=== PATIENT | male | born 1960 | race Caucasian/White ===

== ENCOUNTER 2019-08-02 07:25 | Outpatient (CLI) | payer OTHER, SELFPAY ==
--- NOTE | 2019-08-02 | XR_ITS ---
WS: [id number] CHEST 2 VIEWS HISTORY: COPD EXACERBATION COMPARISON: 03/02/2019, 11/25/2018 and 11/17/2017 Lungs: Hyperexpanded lungs with emphysema. Chronic linear scarring in the upper lung parra bilateral ly. No pneumonia. Flattening of the diaphragms. Cardiac size: Normal. Mediastinum/Aorta: Normal mediastinum. Bones: Normal. XR/XR chest 2V* [id number] IMPRESSION: Mild chronic emphysema with no acute cardiopulmonary disease.
== END 2019-08-02 07:26 | disposition home or self-care (01) ==
LOC: RADOUTREAD 09:54
PROVIDERS: Family Provider Internal Medicine; PCP Internal Medicine; Visit Provider Internal Medicine
DX: Z76.89 Persons encountering health services in other specified circumstances (principal)

== ENCOUNTER → 2019-11-03 07:52 | Outpatient (BNVA) | payer OTHER, SELFPAY | PROVIDERS: Family Provider Internal Medicine; PCP Internal Medicine; Visit Provider Specialist | DX: G56.22 Lesion of ulnar nerve, left upper limb (principal); F17.210 Nicotine dependence, cigarettes, uncomplicated | CPT/HCPCS: 95910 ==

== ENCOUNTER → 2019-11-09 13:00 | Outpatient (BNVA) | payer OTHER, SELFPAY | PROVIDERS: Family Provider Internal Medicine; PCP Internal Medicine; Visit Provider Internal Medicine | DX: G62.9 Polyneuropathy, unspecified (principal); E03.9 Hypothyroidism, unspecified | CPT/HCPCS: 80053; 82607; 84443; 85651 ==

== ENCOUNTER 2019-11-19 10:05 | Outpatient (CLI) | payer OTHER, SELFPAY ==
--- NOTE | 2019-11-19 11:00 | MR_ITS ---
WS: [id number] MRI HEAD WITHOUT CONTRAST TECHNIQUE: Sagittal T1, T2 axial, T2 axial FLAIR, axial and coronal T1 images, axial susceptibility w eighted imaging, axial diffusion weighted images, and coronal T2 images were obtained. CLINICAL INFORMATION: per ne COMPARISON: None. FINDINGS: No evidence of restricted diffusion to suggest acute ischemia. Ventricular system and basal cisterns are patent. No suspicious intracranial signal abnormalities. No significant small vessel changes. Mil d parenchymal volume loss. Normal posterior fossa. Normal vascular flow voids at the skull base. No e xtra-axial fluid collections. No evidence of mass or mass effect. Mild mucosal thickening in the paranasal sinuses. Small amount of fluid in the right maxillary sinus. Mastoid air cells are well aerated. No hemosiderin on the susceptibility weighted images. Mild symme tric atrophy involving the temporal lobes and hippocampal formations. Normal optic chiasm and pituita ry infundibulum. MR/MR head wo con* [id number] IMPRESSION: 1. No evidence of restricted diffusion to suggest acute ischemia. 2. No significant small vessel disease. Mild parenchymal volume loss. 3. Mild mucosal thickening in the paranasal sinuses. Mastoid air cells are wel l aerated. 4. Mild symmetric atrophy involving the temporal lobes and hippocampal formati ons. 5. No hemosiderin on the susceptibility weighted images.
--- NOTE | 2019-11-19 11:45 | MR_ITS ---
WS: [id number] MRI CERVICAL SPINE NONCONTRAST TECHNIQUE: Sagittal T1, T2 and STIR imaging. Axial T2, gradient, and fiesta imaging. CLINICAL INFORMATION: periph neuropathy COMPARISON: None. FINDINGS: Straightening of the normal cervical lordosis. Mild spondylitic changes. Disc bulging worse at C3-C4 C4-C5 and C6-C7. C2-C3: Small central disc protrusion. Slight effacement of ventral thecal sac. Spinal canal and ton en are patent. C3-C4: Small central disc protrusion. Mild central canal stenosis. Mild bilateral foraminal narrowing . Mild facet arthropathy. Slight indentation on cervical cord. C4-C5: Mild disc bulging with a small central disc protrusion. Slight contact of the cervical cord. M ild central canal stenosis. Moderate bilateral bony foraminal narrowing. Mild facet arthropathy. C5-C6: Tiny central disc protrusion. Spinal canal is patent. Mild bilateral bony foraminal narrowing. Mild facet arthropathy. C6-C7: Disc osteophyte protrusion with slight indentation on cervical cord. Moderate central canal st enosis. Moderate left and mild right bony foraminal narrowing. C7-T1: Mild left and no significant right foraminal narrowing. Spinal canal is patent. Visualized brain stem structures: Normal. Prevertebral soft tissues: Normal. MR/MR cervical spin wo con* [id number] IMPRESSION: 1. Straightening of the normal cervical lordosis. 2. Small central disc protrusions with mild central canal stenosis C3-C4 and C 4-C5. Moderate central canal stenosis C6-C7 with central disc osteophyte protru last and slight indentation on cervical cord. 3. Small central protrusion C2-3. 4. Mild to moderate bony foraminal narrowing worse at bilateral C4-5, and left C6-C7.
== END 2019-11-19 10:06 | disposition home or self-care (01) ==
LOC: RADSHAW 10:09
PROVIDERS: PCP Internal Medicine; Visit Provider Internal Medicine
DX: G62.9 Polyneuropathy, unspecified (principal); M50.21 Other cervical disc displacement, high cervical region; M48.02 Spinal stenosis, cervical region
CPT/HCPCS: 70551; 72141

== ENCOUNTER → 2019-11-30 15:16 | Outpatient (BNVA) | payer OTHER, SELFPAY | PROVIDERS: PCP Internal Medicine; Visit Provider Internal Medicine | DX: M06.4 Inflammatory polyarthropathy (principal) | CPT/HCPCS: 85651; 86038; 86140; 86200; 86431; 86705; 86706; 86709; 86803; 87340 ==

== ENCOUNTER → 2020-01-19 15:34 | Outpatient (BNVA) | payer OTHER, SELFPAY | PROVIDERS: PCP Internal Medicine; Visit Provider Internal Medicine Rheumatology | DX: M06.041 Rheumatoid arthritis without rheumatoid factor, right hand (principal); Z79.899 Other long term (current) drug therapy; M06.042 Rheumatoid arthritis without rheumatoid factor, left hand; J44.9 Chronic obstructive pulmonary disease, unspecified; R79.82 Elevated C-reactive protein (CRP); F17.210 Nicotine dependence, cigarettes, uncomplicated | CPT/HCPCS: 36415; 82306; 84550; 86431; 86480; 99204 ==

== ENCOUNTER 2020-01-20 09:48 | Outpatient (CLI) | payer OTHER, SELFPAY ==
--- NOTE | 2020-01-20 09:55 | XR_ITS ---
WS: [id number] Left foot, 3 views, 01/20/2020 Clinical Data: inflammatory arthritis Comparison: None. Findings: No fractures or dislocations are seen. No bone destruction or erosion is noted. The joint spaces and soft tissues are normal. XR/XR foot LT min 3V* [id number] Impression: Negative left foot.
--- NOTE | 2020-01-20 09:55 | XR_ITS ---
WS: [id number] Right hand, 3 views, 01/20/2020 Clinical Data: inflammatory arthritis Comparison: None. Findings: No fractures or dislocations are seen. The soft tissues are unremarkable. The joint space s are normal XR/XR hand RT min 3V* [id number] Impression: Negative right hand.
--- NOTE | 2020-01-20 09:55 | XR_ITS ---
WS: [id number] Right foot, 3 views, 01/20/2020 Clinical Data: inflammatory arthritis Comparison: None. Findings: No fractures or dislocations are seen. No bone destruction or erosion is noted. The joint spaces and soft tissues are normal. There is a bunion at the head of the right first metatarsal. XR/XR foot RT min 3V* [id number] Impression: Bunion of the head of the right first metatarsal.
--- NOTE | 2020-01-20 09:55 | XR_ITS ---
WS: [id number] Left hand, 3 views, 01/20/2020 Clinical Data: inflammatory arthritis Comparison: None. Findings: No fractures or dislocations are seen. The soft tissues are unremarkable. The joint spaces are normal XR/XR hand LT min 3V* [id number] Impression: Negative left hand.
== END 2020-01-20 09:49 | disposition home or self-care (01) ==
LOC: RADWPI 09:51
PROVIDERS: Family Provider Internal Medicine; PCP Internal Medicine; Visit Provider Internal Medicine Rheumatology
DX: M19.90 Unspecified osteoarthritis, unspecified site (principal); M21.611 Bunion of right foot
CPT/HCPCS: 73130; 73630

== ENCOUNTER → 2020-02-24 09:48 | Outpatient (BNVA) | payer OTHER, SELFPAY | PROVIDERS: Family Provider Internal Medicine; PCP Internal Medicine; Visit Provider Internal Medicine Rheumatology | DX: Z79.899 Other long term (current) drug therapy (principal) | CPT/HCPCS: 36415; 80076; 82306; 82565; 85025; 85651; 86140 ==

== ENCOUNTER → 2020-03-09 14:16 | Outpatient (BNVA) | payer OTHER, SELFPAY | PROVIDERS: Family Provider Internal Medicine; PCP Internal Medicine; Visit Provider Internal Medicine Rheumatology | DX: M06.041 Rheumatoid arthritis without rheumatoid factor, right hand (principal); M06.042 Rheumatoid arthritis without rheumatoid factor, left hand; Z79.899 Other long term (current) drug therapy; J44.9 Chronic obstructive pulmonary disease, unspecified; M06.4 Inflammatory polyarthropathy; F17.210 Nicotine dependence, cigarettes, uncomplicated; Z79.52 Long term (current) use of systemic steroids | CPT/HCPCS: 99214 ==

== ENCOUNTER 2020-03-10 08:09 | Outpatient (CLI) | payer OTHER, SELFPAY ==
--- NOTE | 2020-03-10 08:18 | XR_ITS ---
WS: [id number] Chest 2 views, 03/10/2020 Clinical Data: shortness of breath Comparison: PA and lateral chest, 08/02/2019. Findings: No nodules, masses or effusions are seen. The heart is normal. The pulmonary vascularity is not increased. No pneumonia or pneumothorax is seen. The diaphragms are flattened. Is diminished vas cular markings in the upper lobes consistent with emphysematous change. XR/XR chest 2V* [id number] Impression: Hyperinflation and emphysema.
== END 2020-03-10 08:10 | disposition home or self-care (01) ==
LOC: RAD 08:13
PROVIDERS: PCP Internal Medicine; Visit Provider Internal Medicine
DX: R06.02 Shortness of breath (principal); J43.9 Emphysema, unspecified
CPT/HCPCS: 71046

== ENCOUNTER → 2020-04-03 09:03 | Outpatient (BNVA) | payer OTHER, SELFPAY | PROVIDERS: Family Provider Internal Medicine; PCP Internal Medicine; Visit Provider Urology | DX: J43.1 Panlobular emphysema (principal) | CPT/HCPCS: 87635 ==

== ENCOUNTER 2020-04-06 12:43 | Outpatient (CLI) | payer OTHER, SELFPAY ==
--- NOTE | 2020-04-06 14:39 | PFTS_ITS ---
Date of Study:04/06/20 Date of Dictation: 04/06/2020 MECHANICS: Forced vital capacity (FVC) is reduced Forced expiratory volume in one second (FEV1) is severely reduced FEV1/FVC is reduced Significant response to bronchodilators noted FLOW VOLUME LOOP: Severe scooping of expiratory limb suggestive of severe obstruction of airways . LUNG VOLUMES: Total lung capacity (TLC) is increased. Residual volume (RV) is significantly increased suggestive of severe air trapping DIFFUSING CAPACITY FOR CARBON MONOXIDE: Moderately reduced . INTERPRETATION: The pulmonary function tests are consistent with severe obstructive ventilatory disease and moderately reduced gas transfer. Correlate clinically MTDD
== END 2020-04-06 12:44 | disposition home or self-care (01) ==
LOC: CT 12:44
PROVIDERS: PCP Internal Medicine; Visit Provider Internal Medicine
DX: J44.9 Chronic obstructive pulmonary disease, unspecified (principal)
CPT/HCPCS: 94060; 94726; 94729; J7611

== ENCOUNTER 2020-04-10 07:52 | Outpatient (CLI) | payer OTHER, SELFPAY ==
--- NOTE | 2020-04-10 07:54 | CT_ITS ---
WS: [id number] CT CHEST WITH INTRAVENOUS CONTRAST HISTORY: Dyspnea on exertion, COPD. TECHNIQUE: Contiguous 5 mm axial imaging performed on the thorax. Coronal and sagittal reformats are submitted. All CT scans at [facility] use at least one of these dose optimization techniq ues: automated exposure control; mA and/or kV adjustment per patient size (includes targeted exams wh ere dose is matched to clinical indication); or iterative reconstruction. CONTRAST: Visipaque 320; 95 mL IV. DLP: 852.97 mGy.cm COMPARISON: 12/08/2018 Lungs and central airway: Hyperexpanded lungs. Focal area of interstitial thickening measures 10 mm i n the LEFT upper lobe and stable since 12/08/2018. There is very mild but new interstitial thickening bilaterally in the periphery of the lungs, greatest at the RIGHT lung base. Pleura: Normal. No pleural effusion. Heart and pericardium: Normal size heart with no pericardial effusion. Mediastinum and ganesh: No mediastinum or hilar adenopathy. Vessels: Mild atherosclerosis aorta. Pulmonary artery size is equal to the aorta. Chest wall and lower neck: No soft tissue masses. Upper abdomen: Small hiatal hernia. No adrenal mass. Visualized liver is negative. There is very mild wall thickening involving the hepatic flexure with very slight narrowing of the lumen. Osseous structures: No osteoblastic or osteolytic bone disease. CT/CT chest w con* [id number] IMPRESSION: 1. Stable scar LEFT upper lobe since 12/08/2018. Recommend additional [address] follow-up to demonstrate long-term stability. 2. New mild interstitial thickening bilaterally but greatest at the RIGHT lung base. Probably representing a mild inflammatory process involving the distal a irways. No pneumonia. 3. No adenopathy. 4. Moderate chronic emphysema. 5. New very mild wall thickening involving the hepatic flexure. Early colonic neoplasm is not excluded. Consider follow-up colonoscopy.
[2020-04-10] MEDS: iodixanol 320 mg/mL 100mL Btl IV (08:27)
== END 2020-04-10 07:53 | disposition home or self-care (01) ==
LOC: CT 07:52
PROVIDERS: PCP Internal Medicine; Visit Provider Internal Medicine
DX: R06.00 Dyspnea, unspecified (principal); J44.9 Chronic obstructive pulmonary disease, unspecified
CPT/HCPCS: 71260

== ENCOUNTER → 2020-04-11 09:54 | Outpatient (BNVA) | payer OTHER, SELFPAY | PROVIDERS: Family Provider Internal Medicine; PCP Internal Medicine; Visit Provider Internal Medicine Rheumatology | DX: Z79.899 Other long term (current) drug therapy (principal) | CPT/HCPCS: 36415; 80076; 82565; 85025; 85651; 86140 ==

== ENCOUNTER 2020-05-02 11:47 | Outpatient (CLI) | payer OTHER, SELFPAY ==
[2020-05-02 12:37] LABS: Alanine Aminotransferase 18 U/L (0-41); Albumin Level 4.3 g/dL (3.5-5.2); Alkaline Phosphatase 84 IU/L (40-130); Anion Gap 15.4 (5-19); Aspartate Amino Transferase 17 U/L (0-40); Blood Urea Nitrogen 8 mg/dL (6-20); Carbon Dioxide 27 mmol/L (22-29); Chloride 99 mmol/L (98-107); Glomerular Filtration Rate 86.4 mL/min (90-130); Glucose 116 mg/dL (65-115); Osmolality Calculated 283 mOsm/kg (285-295); Potassium 4.4 mmol/L (3.5-5.1); Sodium 137 mmol/L (136-145); Total Bilirubin 0.3 mg/dL (0.15-1.2); Total Protein 7.3 g/dL (6.6-8.7)
== END 2020-05-02 11:48 | disposition home or self-care (01) ==
LOC: LAB 11:51
PROVIDERS: PCP Internal Medicine; Visit Provider Internal Medicine Critical Care Medicine
DX: J43.1 Panlobular emphysema (principal)
CPT/HCPCS: 80053

== ENCOUNTER → 2020-05-30 09:44 | Outpatient (BNVA) | payer OTHER, SELFPAY | PROVIDERS: PCP Internal Medicine; Visit Provider Internal Medicine Rheumatology | DX: M06.041 Rheumatoid arthritis without rheumatoid factor, right hand (principal); M06.042 Rheumatoid arthritis without rheumatoid factor, left hand; J43.1 Panlobular emphysema; F17.210 Nicotine dependence, cigarettes, uncomplicated; Z79.899 Other long term (current) drug therapy; Z79.52 Long term (current) use of systemic steroids | CPT/HCPCS: 99214 ==

== ENCOUNTER 2020-07-04 13:08 | Outpatient (CLI) | payer OTHER, SELFPAY ==
[2020-07-04 13:50] LABS: ABG PCO2 46.1 mmHg (35-45); Arterial Blood Gas Hematocrit 46.1 % (42-52); Base Excess ABG 2.9 mmol/L (-2.0-2.0); Blood Gas Allen Test Pos; Blood Gas Operator Identificat glc; Blood Gas Sample Site Radial, right; Blood Gas Sample Type Arterial; HCO3 ABG 28.5 mmol/L (22-26); Oxygen Device ROOM AIR; PO2 ABG 70.4 mmHg (80.0-100.0)
== END 2020-07-04 13:09 | disposition home or self-care (01) ==
PROVIDERS: PCP Internal Medicine; Visit Provider Internal Medicine Critical Care Medicine
DX: J43.1 Panlobular emphysema (principal)
CPT/HCPCS: 36600; 82803

== ENCOUNTER 2020-07-06 10:38 | Outpatient (RCR) | payer OTHER, SELFPAY | END 2020-07-30 23:59 | disposition home or self-care (01) | LOC: PULRHB 10:38 | PROVIDERS: PCP Internal Medicine; Visit Provider Internal Medicine | DX: J44.9 Chronic obstructive pulmonary disease, unspecified (principal) | CPT/HCPCS: 94618; G0424 ==

== ENCOUNTER → 2020-07-12 12:58 | Outpatient (BNVA) | payer OTHER, SELFPAY | PROVIDERS: PCP Internal Medicine; Visit Provider Internal Medicine Rheumatology | DX: Z79.899 Other long term (current) drug therapy (principal) | CPT/HCPCS: 36415; 80076; 82565; 85025; 85651; 86140 ==

== ENCOUNTER 2020-07-31 06:00 | Outpatient (RCR) | payer OTHER, SELFPAY | END 2020-08-27 23:59 | disposition home or self-care (01) | LOC: PULRHB 06:00 | PROVIDERS: PCP Internal Medicine; Visit Provider Internal Medicine | DX: J44.9 Chronic obstructive pulmonary disease, unspecified (principal) | CPT/HCPCS: G0424 ==

== ENCOUNTER 2020-08-28 06:00 | Outpatient (RCR) | payer OTHER, SELFPAY | END 2020-09-27 23:59 | disposition home or self-care (01) | LOC: PULRHB 06:00 | PROVIDERS: PCP Internal Medicine; Visit Provider Internal Medicine | DX: Z95.2 Presence of prosthetic heart valve (principal); Z79.01 Long term (current) use of anticoagulants | CPT/HCPCS: G0424 ==

== ENCOUNTER → 2020-09-18 14:42 | Outpatient (BNVA) | payer OTHER, SELFPAY | PROVIDERS: PCP Internal Medicine; Visit Provider Internal Medicine Rheumatology | DX: M06.041 Rheumatoid arthritis without rheumatoid factor, right hand (principal); M06.042 Rheumatoid arthritis without rheumatoid factor, left hand; Z79.899 Other long term (current) drug therapy; R79.82 Elevated C-reactive protein (CRP); J43.1 Panlobular emphysema; M06.4 Inflammatory polyarthropathy; F17.210 Nicotine dependence, cigarettes, uncomplicated | CPT/HCPCS: 99214 ==

== ENCOUNTER 2020-10-03 18:49 | Emergency (ER) | payer OTHER, SELFPAY ==
--- NOTE | 2020-10-03 18:50 | XR_ITS ---
WS: [id number] PA and lateral chest, 10/03/2020 Clinical Data: cp Comparison: PA and lateral chest, 03/10/2020. Findings: No nodules, masses or effusions are seen. The heart is normal. The pulmonary vascularity is not increased. No pneumonia or pneumothorax is present. The diaphragms are flattened. There are dimi nished vascular markings in the upper lobes. XR/XR chest 2V* [id number] Impression: Hyperinflation and emphysema.
[2020-10-03 20:09] VITALS: BP 121/69; PULSE 85; RESP 18; TEMP 36.8; O2SAT 93; BMI 29.0
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
[2020-10-03] MEDS: HYDROcodone-acetaminophen 5-325 mg Tablet 1 TAB PO (20:43)
--- NOTE | 2020-10-04 09:35 | DCPLANNER ---
Addendum entered by Jody Kelly 10/09/20 14:50: cytogenetics laboratory manager called Dr. Layton's office in [facility], confirming that clinic received referral on patient. cytogenetics laboratory manager was told that clinic did receive the referral. A follow up appointment was scheduled for Saturday, October 31, 2020 at 10:[address] Layton. cytogenetics laboratory manager called patient and informed patient of the scheduled appointment. Addendum entered by Jody Kelly 10/04/20 12:49: Sera from ortho called family preservation caseworker stating that patient wants to be referred to [facility]. cytogenetics laboratory manager spoke with patient, wants to be referred to Dr. Thony Layton at [facility], family preservation caseworker faxed patients information to the clinic of Dr. Layton. Original Note: cytogenetics laboratory manager had message to schedule a follow up appointment for patient with Dr. Tukr at ortho for a T7 fracture. cytogenetics laboratory manager called the ortho clinic, spoke with Alley, gave clinic patients information. cytogenetics laboratory manager was told that patients information would be printed and reviewed. Clinic will call patient with appointment information.
--- NOTE | 2020-12-14 14:43 | DCPLANNER ---
Patient had a follow up appointment scheduled with Dr. Layton at [facility] - patient did attend appointment.
== END 2020-10-03 21:04 | disposition home or self-care (01) ==
PROVIDERS: Emergency Provider Emergency Medicine; PCP Internal Medicine
DX: S20.219A Contusion of unspecified front wall of thorax, initial encounter (principal); S22.060A Wedge compression fracture of T7-T8 vertebra, initial encounter for closed fracture; V59.9XXA Occupant (driver) (passenger) of pick-up truck or van injured in unspecified traffic accident, initial encounter; J44.9 Chronic obstructive pulmonary disease, unspecified; Z87.891 Personal history of nicotine dependence
CPT/HCPCS: 71046; 71250; 99283

== ENCOUNTER → 2020-10-16 09:32 | Outpatient (BNVA) | payer OTHER, SELFPAY | PROVIDERS: PCP Internal Medicine; Visit Provider Internal Medicine Critical Care Medicine | DX: Z01.812 Encounter for preprocedural laboratory examination (principal); Z20.822 Contact with and (suspected) exposure to COVID-19 | CPT/HCPCS: 87635 ==

== ENCOUNTER 2020-10-19 12:46 | Outpatient (CLI) | payer OTHER, SELFPAY | END 2020-10-19 12:47 | disposition home or self-care (01) | LOC: RT 12:50 | PROVIDERS: PCP Internal Medicine; Visit Provider Internal Medicine Critical Care Medicine | DX: J96.11 Chronic respiratory failure with hypoxia (principal) | CPT/HCPCS: 94618 ==

== ENCOUNTER → 2020-11-16 10:43 | Outpatient (BNVA) | payer OTHER, SELFPAY | PROVIDERS: PCP Internal Medicine; Visit Provider Internal Medicine | DX: M06.041 Rheumatoid arthritis without rheumatoid factor, right hand (principal); M06.042 Rheumatoid arthritis without rheumatoid factor, left hand; Z79.899 Other long term (current) drug therapy | CPT/HCPCS: 36415; 80076; 82565; 85025; 86140 ==

== ENCOUNTER → 2021-01-18 10:25 | Outpatient (BNVA) | payer OTHER, SELFPAY | PROVIDERS: PCP Internal Medicine; Visit Provider Internal Medicine Rheumatology | DX: M06.041 Rheumatoid arthritis without rheumatoid factor, right hand (principal); M06.042 Rheumatoid arthritis without rheumatoid factor, left hand; Z79.899 Other long term (current) drug therapy; G62.9 Polyneuropathy, unspecified; M19.041 Primary osteoarthritis, right hand; M19.042 Primary osteoarthritis, left hand; J43.1 Panlobular emphysema; Z87.891 Personal history of nicotine dependence; Z71.89 Other specified counseling | CPT/HCPCS: 99214 ==

== ENCOUNTER → 2021-03-20 10:46 | Outpatient (BNVA) | payer OTHER, SELFPAY | PROVIDERS: PCP Internal Medicine; Visit Provider Internal Medicine Rheumatology | DX: M06.4 Inflammatory polyarthropathy (principal) | CPT/HCPCS: 36415; 80076; 82565; 85025; 86140 ==

== ENCOUNTER → 2021-05-08 13:27 | Outpatient (BNVA) | payer OTHER, SELFPAY | PROVIDERS: PCP Internal Medicine; Visit Provider Internal Medicine Rheumatology | DX: M06.041 Rheumatoid arthritis without rheumatoid factor, right hand (principal); M06.042 Rheumatoid arthritis without rheumatoid factor, left hand; Z79.899 Other long term (current) drug therapy; R79.82 Elevated C-reactive protein (CRP); J43.9 Emphysema, unspecified; Z71.89 Other specified counseling; Z87.891 Personal history of nicotine dependence | CPT/HCPCS: 99214 ==

== ENCOUNTER 2021-07-03 08:36 | Outpatient (CLI) | payer OTHER, SELFPAY ==
[2021-07-03 09:19] LABS: Estmated Average Glucose 160; Hemoglobin A1C 7.2 % (4.0-6.0)
[2021-07-03 09:36] LABS: Cholesterol 201 mg/dL (0-200); HDL Cholesterol 61 mg/dL (60-100); LDL Cholesterol Calculated 119 mg/dL (50-129); LDL HDL Ratio 1.95 RATIO (0.00-3.22); Prostate Specific Antigen Scr 0.64 ng/mL (0-4); Triglycerides 105 mg/dL (0-150)
== END 2021-07-03 08:37 | disposition home or self-care (01) ==
LOC: LAB 08:40
PROVIDERS: PCP Internal Medicine; Visit Provider Family Medicine
DX: Z13.220 Encounter for screening for lipoid disorders (principal); Z13.1 Encounter for screening for diabetes mellitus; Z12.5 Encounter for screening for malignant neoplasm of prostate
CPT/HCPCS: 36415; 80061; 83036; G0103

== ENCOUNTER 2021-07-03 08:41 | Outpatient (CLI) | payer OTHER, SELFPAY ==
[2021-07-03 09:06] LABS: Basophils # 0.1 10^3/uL (0.0-0.1); Basophils % 0.7 %; Eosinophils # 0.3 10^3/uL (0.0-0.8); Eosinophils % 3.6 %; Hematocrit 42.7 % (42.0-52.0); Hemoglobin 13.6 g/dL (11.7-16.6); Lymphocytes # 1.6 10^3/uL (0.8-4.8); Lymphocytes % 22.7 %; Mean Corpuscular HGB Conc 31.9 g/dL (30.0-36.0); Mean Corpuscular Hemoglobin 32.3 pg (28.0-34.0); Mean Corpuscular Volume 101.4 fl (80-94); Monocytes # 0.5 10^3/uL (0.2-0.9); Monocytes % 7.5 %; Neutrophils # 4.52 10^3/uL (1.8-7.7); Neutrophils % 65.1 %; Nucleated Red Blood Cells % 0 %; Platelet Count 185 10^3/cmm (130-400); Red Blood Count 4.21 10^6/uL (4.1-5.3)
[2021-07-03 09:26] LABS: Alanine Aminotransferase 28 U/L (0-41); Albumin Level 4.2 g/dL (3.5-5.2); Alkaline Phosphatase 74 IU/L (40-130); Aspartate Amino Transferase 21 U/L (0-40); C Reactive Protein 9.7 mg/L (0.0-4.9); Globulin 2.4 g/dL (1.3-4.6); Glomerular Filtration Rate 98.6 mL/min (90-130); Total Bilirubin 0.3 mg/dL (0.15-1.2); Total Protein 6.6 g/dL (6.6-8.7)
== END 2021-07-03 08:42 | disposition home or self-care (01) ==
LOC: LAB 08:42
PROVIDERS: PCP Family Medicine; Visit Provider Internal Medicine Rheumatology
DX: M06.041 Rheumatoid arthritis without rheumatoid factor, right hand (principal); M06.042 Rheumatoid arthritis without rheumatoid factor, left hand; Z79.899 Other long term (current) drug therapy
CPT/HCPCS: 36415; 80076; 82565; 85025; 86140

== ENCOUNTER 2021-10-04 09:29 | Outpatient (CLI) | payer OTHER, SELFPAY ==
--- NOTE | 2021-10-04 | CT_ITS ---
Guided Bronchoscopy Planning CT images; total exam DLP: 2416.44 mGy-cm MTDD
== END 2021-10-04 09:30 | disposition home or self-care (01) ==
PROVIDERS: PCP Family Medicine; Visit Provider Internal Medicine Critical Care Medicine
DX: J44.9 Chronic obstructive pulmonary disease, unspecified (principal)
CPT/HCPCS: 71250

== ENCOUNTER 2021-12-07 09:23 | Outpatient (CLI) | payer OTHER, SELFPAY ==
[2021-12-07 10:43] LABS: Basophils # 0.1 10^3/uL (0.0-0.1); Basophils % 0.6 %; Eosinophils # 0.3 10^3/uL (0.0-0.8); Hematocrit 41.7 % (42.0-52.0); Hemoglobin 14.3 g/dL (11.7-16.6); Lymphocytes # 1.7 10^3/uL (0.8-4.8); Lymphocytes % 19.9 %; Mean Corpuscular HGB Conc 34.3 g/dL (30.0-36.0); Mean Corpuscular Hemoglobin 33.2 pg (28.0-34.0); Mean Corpuscular Volume 96.8 fl (80-94); Mean Platelet Volume 10.9 fL (7.4-10.4); Monocytes # 0.5 10^3/uL (0.2-0.9); Monocytes % 6.3 %; Neutrophils # 5.85 10^3/uL (1.8-7.7); Nucleated Red Blood Cells % 0.4 %; Platelet Count 176 10^3/cmm (130-400); Red Blood Count 4.31 10^6/uL (4.1-5.3); Red Cell Distribution Width 13.2 % (12.1-15.1); White Blood Count 8.4 10^3/uL (4.0-10.0)
[2021-12-07 11:07] LABS: Albumin Level 4.3 g/dL (3.5-5.2); Alkaline Phosphatase 70 IU/L (40-130); C Reactive Protein 8.5 mg/L (0.0-4.9); Globulin 2.9 g/dL (1.3-4.6); Glomerular Filtration Rate 98.3 mL/min (90-130); Total Bilirubin 0.2 mg/dL (0.15-1.2); Total Protein 7.2 g/dL (6.6-8.7)
[2021-12-07 11:10] LABS: Alanine Aminotransferase 19 U/L (0-41); Aspartate Amino Transferase 24 U/L (0-40)
== END 2021-12-07 09:24 | disposition home or self-care (01) ==
LOC: LAB 09:27
PROVIDERS: PCP Family Medicine; Visit Provider Internal Medicine Rheumatology
DX: M06.041 Rheumatoid arthritis without rheumatoid factor, right hand (principal); M06.042 Rheumatoid arthritis without rheumatoid factor, left hand; Z79.899 Other long term (current) drug therapy
CPT/HCPCS: 80076; 82565; 85025; 86140

== ENCOUNTER 2022-03-06 06:28 | Outpatient (CLI) | payer OTHER, SELFPAY ==
--- NOTE | 2022-03-06 08:31 | PFTS_ITS ---
Date of Study:03/06/22 Date of Dictation: MECHANICS: Forced vital capacity (FVC) is . Forced expiratory volume in one second (FEV1) is . FEV1/FVC is . FLOW VOLUME LOOP: . LUNG VOLUMES: Total lung capacity (TLC) is . Residual volume (RV) is . DIFFUSING CAPACITY FOR CARBON MONOXIDE: . INTERPRETATION: The pulmonary function tests are . mechanics and lung volumes. Gas exchange (DLCO) is . MTDD
[2022-03-06 08:32] VITALS: BP 125/77; BP 127/75
== END 2022-03-06 06:29 | disposition home or self-care (01) ==
LOC: RT 06:30
PROVIDERS: PCP Family Medicine; Visit Provider Internal Medicine Critical Care Medicine
DX: J43.1 Panlobular emphysema (principal)
CPT/HCPCS: 94060; 94618; 94726; 94729; J7611

== ENCOUNTER 2022-03-26 08:42 | Outpatient (CLI) | payer OTHER, SELFPAY ==
--- NOTE | 2022-03-26 | XR_ITS ---
WS: [id number] CHEST 2 VIEWS HISTORY: LUNG SCAN COMPARISON COMPARISON: 10/03/2020 Lungs: Moderate pulmonary hyperinflation. Upper lobe lucencies with lack of vessels. No mass or pneum onia. Cardiac size: Normal. Mediastinum/Aorta: Normal mediastinum. Bones: Normal. XR/XR chest 2V* [id number] IMPRESSION: 1. Moderate to severe emphysema. 2. Bilateral upper lobe lucencies from emphysema.
--- NOTE | 2022-03-26 09:00 | NM_ITS ---
WS: [id number] Nuclear medicine quantitative lung scan. HISTORY: COPD, COMPARISON: Chest radiograph performed 03/26/2022. Lung perfusion examination is performed with 5.2 mCi of MAA. Quantitative assessment of lung perfusio n is performed. Estimated perfusion to the LEFT lung is 36%. Estimated perfusion to the RIGHT lung is 64%. Overall th ere is much better perfusion in the RIGHT middle and lower zones. The upper zones bilaterally contain ing approximately 5% of the perfusion. The lower zone on the LEFT 10.5% but this is probably in part due to decreased lung volume as the diaphragm is elevated. Mid LEFT lung is 20.9% perfusion while the mid RIGHT lung is 34.9% perfusion. Perfusion imaging does demonstrate decreased uptake within the upper lung parra with mild elevation of the LEFT diaphragm. Much better perfusion to the RIGHT lung. Lungs do appear hyperinflated. Chest x-ray performed on the same date demonstrates hyper expansion with lucencies in the upper lung field due to the decreased perfusion. NM/NC pul perfusion [id number] IMPRESSION: 1. Significant decreased perfusion within the upper lung zones bilaterally. 2. Moderate decrease in perfusion throughout the entire LEFT lung. 3. Lucency in the upper lung prara on the radiograph correspond with the decr eased perfusion seen on the lung scan. 4. The most robust perfusion involves the mid and lower RIGHT lung zones.
== END 2022-03-26 08:43 | disposition home or self-care (01) ==
LOC: RAD 08:45
PROVIDERS: PCP Family Medicine; Visit Provider Internal Medicine Critical Care Medicine
DX: J43.1 Panlobular emphysema (principal)
CPT/HCPCS: 71046; 78580; A9540

== ENCOUNTER 2022-04-02 08:56 | Inpatient (IN) | payer OTHER, SELFPAY ==
[2022-03-29 13:24] VITALS: BMI 27.1
[2022-04-02] VITALS (194 sets, daily range): BP systolic 93–164; BP diastolic 57–94; PULSE 60–109; RESP 7–32; TEMP 36.1–37.3; O2SAT 87–100
[2022-04-02] MEDS: sodium chloride 0.9% 1,000 ML 30 ML IV (06:43)
--- NOTE | 2022-04-02 06:52 | ANES.PREANE2 ---
Pre-Anesthetic Assessment Height/Weight: Height 1.8 m Weight 88.451 kg Temp Pulse Resp BP Pulse Ox O2 Del Method 97.2 F L 84 18 140/90 95 04/02/22 06:24 04/02/22 06:24 04/02/22 06:24 04/02/22 06:24 04/02/22 06:24 04/02/22 06:24 Preop Diagnosis: Severe emphysema, COPD Operation Date: 04/02/22 07:00 Proposed Procedures p Bronchoscopy(Not Applicable) - Ibis Branch MD s Endobronchial Valve Placement(Not Applicable) - Ibis Branch MD Last intake: Intake Last Liquid Date 04/01/22 Last Liquid Time 23:45 Last Solid Date 04/01/22 Last Solid Time 18:30 Social No alcohol and No tobacco Exam alert, oriented x 3, clear to auscultation bilaterally and regular rate & rhythm Airway Submandibular: within normal limits Cervical ROM: within normal limits Mallampati: Class I Comments: Comments: back upper left tooth will occasionally bleed History/ROS No significant history except as noted and No significant complaints Pulmonary Chronic Obstructive Pulmonary Disease 2 L at nighttime, prn during day. METS < 4 due to SOB. Used spiriva this am, no albuterol yet. will give before induction CV/HEM None reported None reported Hepatic None reported GI occasional indigestion with certain foods, none this am Metabolic None reported Musc/skel None reported Neuropsych None reported Anesthetic Plan ASA status: 3 Anesthesia: Anesthesia Evaluation and General Risk of > 500 ml blood loss (7ml/kg in children): Yes, adequate IV access and fluids planned Medications/Allergies Home Medications Medication Instructions Recorded Confirmed Last Taken Type fluticasone 500 mcg-salmeterol 50 1 inh inhalation BID 90 days #180 11/20/21 04/02/22 04/02/22 Rx mcg/dose blistr powdr for ea inhalation (Advair Diskus) folic acid 1 mg tablet 1 mg PO DAILY #90 tabs 01/29/22 03/29/22 04/01/22 Rx hydroxychloroquine 200 mg tablet 200 mg PO BID #180 tabs 01/29/22 03/29/22 04/01/22 Rx (Plaquenil) methotrexate sodium 2.5 mg tablet See Rx Instructions .Route 08/02/22 10/04/22 09/22/22 Rx .COMPLEX #90 tabs ipratropium 0.5 mg-albuterol 3 mg 3 ml inhalation QID PRN wheezing 02/08/22 03/29/22 04/01/22 Rx (2.5 mg base)/3 mL nebulization 30 days #320 mL soln albuterol sulfate 90 mcg/actuation 2 puff inhalation Q6H PRN 02/27/22 03/29/22 04/01/22 Rx aerosol inhaler (ProAir HFA) shortness of breath or wheezing #8 grams levofloxacin 750 mg tablet 750 mg PO DAILY 5 days #5 tabs 03/29/22 03/29/22 04/01/22 Rx pantoprazole 40 mg tablet,delayed 40 mg PO DAILY 03/29/22 03/29/22 04/01/22 History release (Protonix) prednisone 20 mg tablet 40 mg PO DAILY 5 days #10 tabs 03/29/22 03/29/22 04/01/22 Rx cholecalciferol (vitamin D3) 50 50 mcg PO DAILY 04/02/22 04/02/22 04/01/22 History mcg (2,000 unit) capsule fluticasone propionate 50 1 spray intranasal BID PRN Allergy 04/02/22 04/02/22 04/01/22 History mcg/actuation nasal Symptoms spray,suspension tiotropium bromide 18 mcg capsule 1 cap inhalation DAILY 04/02/22 04/02/22 04/01/22 History with inhalation device (Spiriva with HandiHaler) Allergies Allergy/AdvReac Type Severity Reaction Status Date / Time Iodinated Contrast Media Allergy ALGY-Hives Verified 03/29/22 13:13 tofacitinib [From Xeljanz] AdvReac Intermediate foggy, Verified 03/29/22 13:[address] Current Medications Generic Name Dose Route Start Last Admin Trade Name Freq PRN Reason Stop Dose Admin Sodium Chloride 1,000 mls @ 30 mls/hr 04/02/22 06:00 04/02/22 06:43 Sodium Chloride 0.9% IV 04/03/22 05:59 30 mls/hr .Q24H MARIA ANTONIA Administration PFSH Anesthesia Medical History Chronic fatigue disorder Chronic gastritis COPD (chronic obstructive pulmonary disease) Elevated C-reactive protein (CRP) Gouty arthropathy High risk medication use HME (human monocytic ehrlichiosis) Immunization counseling Joint pain Seronegative rheumatoid arthritis of both hands Surgical History History of carpal tunnel surgery History of inguinal hernia repair History of knee surgery History of rotator cuff surgery History of vasectomy Family History Other CAD (coronary artery disease) Diabetes Family history of premature coronary artery disease Heart disease Lung disease Social History (Updated 02/27/22 @ 11:04 by Candice Nunez LPN) Smoking and tobacco status: former smoker Quit status (tobacco): has quit using tobacco Year quit tobacco: 2020 Former quit date comment: 1ppd X 45 years Alcohol intake: never Marital status: Current occupational status: employed 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
--- NOTE | 2022-04-02 07:01 | P.HP_ITS ---
Same Day Surgery H&P Indication for Procedure/HPI DATE OF PROCEDURE: April 02, 2022 CHIEF COMPLAINT/INDICATIONFOR SURGICAL PROCEDURE: Severe COPD, heterogeneous emphysema PREOP DIAGNOSIS: Severe emphysema, COPD PLANNED PROCEDURE: Bronchoscopic lung volume reduction with deployment of endobronchial valves in the left upper lobe Operation Date: 04/02/22 07:00 Proposed Procedures p Bronchoscopy(Not Applicable) - Ibis Branch MD s Endobronchial Valve Placement(Not Applicable) - Ibis Branch MD Medications/Allergies* Home Medications Medication Instructions Recorded Confirmed Type pantoprazole 40 mg tablet,delayed 40 mg PO DAILY 03/29/22 03/29/22 History release (Protonix) cholecalciferol (vitamin D3) 50 50 mcg PO DAILY 04/02/22 04/02/22 History mcg (2,000 unit) capsule fluticasone propionate 50 1 spray intranasal BID PRN Allergy 04/02/22 04/02/22 History mcg/actuation nasal Symptoms spray,suspension tiotropium bromide 18 mcg capsule 1 cap inhalation DAILY 04/02/22 04/02/22 History with inhalation device (Spiriva with HandiHaler) Allergies/Adverse Reactions Allergy/AdvReac Type Severity Reaction Status Date / Time Iodinated Contrast Media Allergy ALGY-Hives Verified 03/29/22 13:13 tofacitinib [From Xeljanz] AdvReac Intermediate foggy, Verified 03/29/22 13:[address] sick [address] to drive Current Medications: Generic Name Dose Route Start Last Admin Trade Name Freq PRN Reason Stop Dose Admin Sodium Chloride 1,000 mls @ 30 mls/hr 04/02/22 06:00 04/02/22 06:43 Sodium Chloride 0.9% IV 04/03/22 05:59 30 mls/hr .Q24H MARIA ANTONIA Administration Pertinent History/Comorbid Conditions* Medical History (Updated 09/27/21 @ 11:33 by Ibis Branch MD) Chronic fatigue disorder Chronic gastritis COPD (chronic obstructive pulmonary disease) Elevated C-reactive protein (CRP) Gouty arthropathy High risk medication use HME (human monocytic ehrlichiosis) Immunization counseling Joint pain Seronegative rheumatoid arthritis of both hands Surgical History (Updated 08/05/19 @ 14:29 by Carmine Weston MD) History of carpal tunnel surgery History of inguinal hernia repair History of knee surgery History of rotator cuff surgery History of vasectomy Family History (Updated 01/19/20 @ 16:28 by Shila Lopez LPN) Diabetes CAD (coronary artery disease) Heart disease Family history of premature coronary artery disease Lung disease Social History Smoking and tobacco status: former smoker Quit status (tobacco): has quit using tobacco Year quit tobacco: 2020 Former quit date comment: 1ppd X 45 years Alcohol intake: never Marital status: Current occupational status: employed 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 Neck: No JVD Respiratory: Auscultation: Reduced breath sound bilaterally, no crackles but there is minimal rhonchi in the anterior chest Cardiovascular: Regular rate and rhythm, S1-S2 present, distant breath sound, no murmur, no peripheral edema Abdomen: Soft, nontender, nondistended, positive bowel sound Musculoskeletal: No obvious joint deformity Skin: No rash Lymphatic: The axillary and inguinal lymph node groups are not examined Neuro: Mental status is normal, no gross cranial nerve deficit, normal motor and coordination Recommendations Surgery/Procedure today Other Plans: Proceed with the procedure. The patient will be monitored closely for the next 3 days in the ICU after the procedure. We have discussed the possible complications for this procedure including pneumothorax, collapsed lung, persistent air leak, respiratory failure, bleeding, infection and rarely . Coding Level of Care Code Acute Behavioral Pediatrician for Iris Carranza
[2022-04-02] MEDS: lidocaine 1% INJ 20 mL XX (07:24)
--- NOTE | 2022-04-02 07:54 | XR_ITS ---
WS: [id number] XR chest 1V portable [id number] REASON FOR EXAM: post valve placement FINDINGS: Small bronchial occluder devices overlie the left hilar region. There is a greater than 50% pneumothorax on the left. Mediastinal structures are shifted to the right . XR/XR chest 1V portable [id number] IMPRESSION: Significant left pneumothorax post procedure. Likely under tension.
--- NOTE | 2022-04-02 07:55 | PM.OP ---
Operative Report Date of procedure: April 02, 2022 Pre-op diagnosis: Preop Diagnosis Severe emphysema, COPD Post-op diagnosis: Same Brief History: Patient is a 61-year-old gentleman with severe COPD, severe airflow obstruction coming in for bronchoscopic lung volume reduction procedure with endobronchial valve deployment in the left upper lobe. Procedure: Name of the procedure: Bronchoscopy inspection of the airway, bronchoalveolar lavage, endobronchial aspiration valve placement in the left upper lobe for bronchoscopic lung volume reduction and control of bleeding. Indication: Severe emphysema, severe airflow obstruction with air trapping, chronic hypoxic respiratory failure Anesthesia: General Description of the procedure: The patient was positioned optimally. He underwent endotracheal tube placement and general anesthesia. The bronchoscope was passed through the endotracheal tube till lower trachea was visible. The lower trachea, cayetano, right and left mainstem bronchi anesthetized with 1% lidocaine. In a systematic way, bilateral airways were then examined. The bronchoscope was introduced into the left mainstem bronchus. The left upper lobe, lingula and lower lobe bronchi were normal. There was evidence of mild bronchiectasis. The bronchoscope was introduced to the right mainstem bronchus. The right upper lobe, middle lobe and lower lobe bronchi were examined. No abnormalities other than mild bronchiectasis was identified. There was mucus throughout the airways. Bronchoalveolar lavage was performed from the right middle lobe. A total of 30 cc of fluid was administered, fluid return was 20 mL. The fluid was cloudy. Using the patented balloon, measurements were performed for the left upper lobe segmental and subsegmental bronchi and lingula. The apicoposterior segment was measured for 1 valve. The anterior segment required 2 valves for 2 subsegmental bronchi. The lingula required 1 valve. The patient required a total of 4 9 mm valves. 1 valve was deployed in the apicoposterior segment. 2 valves were deployed in the anterior segment and 1 valve for the lingular segment bronchus. Complications: There is no immediate complications. Chest x-ray: Pending.
--- NOTE | 2022-04-02 09:00 | XRR_ITS ---
PROCEDURE INFORMATION: Exam: XR Chest Exam date and time: 04/02/2022 8:51 AM Age: 61 years old Clinical indication: Condition or disease; Lung condition and disease; Pneumothorax; Prior surgery; Surgery type: Cath/stents; Patient HX: History--post cardiac stents x 4. Follow up pneumo TECHNIQUE: Imaging protocol: Radiologic exam of the chest. Views: 1 view. COMPARISON: CR XR chest 1V portable [id number] 04/02/2022 8:00 AM FINDINGS: Tubes, catheters and devices: Bronchial occlusive devices project on the left pulmonary hilum. Lungs: There is no change in the large left pneumothorax with collapse of the left lung. The right lung is clear. Pleural spaces: See Lungs finding. Heart/Mediastinum: Heart is not enlarged. There is no significant mediastinal shift. Bones/joints: Unremarkable. XR/XR chest 1V portable [id number] IMPRESSION: Large left pneumothorax with collapse of the left lung unchanged.
[2022-04-02] MEDS: ipratropium-albuterol 3 mL Neb INHALATION ×3 (09:10→19:51)
[2022-04-02] MEDS: enoxaparin 40 mg/0.4 mL Syringe SUBCUT (09:12)
[2022-04-02] MEDS: levofloxacin-dextrose 5 % 750 MG/150 ML PREMIX 100 MG IV (09:12)
[2022-04-02] MEDS: morphine 4 mg/mL SDV 1 mL 2 MG IVP ×4 (09:30→21:19)
[2022-04-02] MEDS: famotidine 20 mg Tablet PO ×2 (09:30→18:12)
--- NOTE | 2022-04-02 09:39 | CT_ITS ---
WS: [id number] CT CHEST TECHNIQUE: Noncontrast CT of the chest with coronal and sagittal reformatted images. CLINICAL INFORMATION: pneumothrax COMPARISON: None. DLP: 484.[address] scans at [facility] use at least one of these dose optimization techniques: automated e xposure control; mA and/or kV adjustment per patient size (includes targeted exams where dose is matc hed to clinical indication); or iterative reconstruction. FINDINGS: Large LEFT pneumothorax with mild LEFT to RIGHT mediastinal shift likely under tension. Bronchial occ lusion devices involving the LEFT upper lobe bronchus. Majority of the LEFT lung is collapsed mediall y. Slight patchy opacities or congestion in the residual aerated LEFT lung. Normal caliber thoracic aorta. Mild aortic and coronary calcification. Adrenal glands are normal. Nor mal GE junction. No axillary lymphadenopathy. No mediastinal or hilar lymphadenopathy. RIGHT lung is well aerated. Slight subsegmental atelectasis RIGHT lower lobe. CT/CT chest wo con [id number] IMPRESSION: 1. LEFT upper lobe bronchial occlusion devices with large LEFT pneumothorax an d suggestion of mild tension. LEFT upper and lower lobes are collapsed. 2. LEFT lung collapsed medially with patchy opacities or edema in the small am ount of residual aerated lung. 3. RIGHT lung is well aerated. Notified Ibis Branch MD at 04/02/2022 10:28 AM.
--- NOTE | 2022-04-02 10:41 | PC.CHAP ---
Pastoral Care Encounter/Spiritual Assessment Type of Contact [] Declined gold cutter visit [] Patient/Family/Request visit [] Outpatient visit [] Follow-up visit [] Physician referral [] Code/Alert [x] Routine visit [] Staff referral [] Actively dying [] Patient sleeping [x] Family support [] [] Out of room [] Palliative care [] [x] Receiving care in room [] Pre-surgical visit [] Trauma [] Long length of stay [x] ICU visit [x] Other: PT went for scan.... Relational/Emotional Strength [] Patient feels connected with others/family/visitors/staff [] Distress [] Loneliness/isolation [] Abandonment Spirituality of Patient [] Person of Nan [] Attends Anabaptism of their Nan [] Believes in Prayer [] Reads Bible or Adventist materials [] There are Spiritual issues to be addressed Wood [employer] Interventions [x] Prayer [] Active listening [] Non-anxious presence [] Spiritual/emotional support [] Crisis/trauma care [] Spiritual counseling [] Bereavement support [] Provided bereavement packet [] Provided Bible/devotional materials [] Provided toy/stuffed animal, coloring book to patient or family member [] Provided Communion [] Anointing/Atkins [] Salvation [x] Completed spiritual assessment [] Other: Impact on Illness or Injury [] Angry [] Fearful [] Anxious [] Often cries [] Exhaustion [] Unable to work [] Unable to attend zoroastrianism [] Unable to walk/stand [] Unable to read [] Unable to drive [] Unable to eat/drink [] Unable to sleep [] Unable to be with family [] Patient intubated [] Other: Summary Time spent with patient
--- NOTE | 2022-04-02 11:19 | XRR_ITS ---
PROCEDURE INFORMATION: Exam: XR Chest Exam date and time: 04/02/2022 11:32 AM Age: 61 years old Clinical indication: Device placement; Chest tube; Additional info: Chest tube placement TECHNIQUE: Imaging protocol: Radiologic exam of the chest. Views: 1 view. COMPARISON: CT chest con [id number] 04/02/2022 9:57 AM FINDINGS: Tubes, catheters and devices: Percutaneous pigtail left chest tube has been inserted. Lungs: There is partial re-expansion of the left lung. Right lung is clear. Pleural spaces: The size of the left pneumothorax has significantly decreased. Heart/Mediastinum: Unremarkable. No cardiomegaly. Bones/joints: Unremarkable. XR/XR chest 1V portable [id number] IMPRESSION: Left chest tube has been inserted in satisfactory position. The left pneumothorax has significantly decreased and there is partial re-expansion of the left lung.
--- NOTE | 2022-04-02 11:22 | PM.ACPR ---
Procedure/Consent Time out: Time Out Performed: Yes Consent: Consent for Procedure: Consent obtained from patient Procedure Narrative: Name of the procedure: Left-sided chest tube placement under ultrasound guidance. Indication: Tension pneumothorax. Medications: Lidocaine 1% 18 mL. Consent: Obtained from patient Description of the procedure: The patient underwent bronchoscopic lung volume reduction procedure early this morning. 4 9 mm valves were deployed in the left upper lobe. The initial chest x-ray following the procedure revealed large pneumothorax. Repeat chest x-ray revealed increasing size of the pneumothorax. A CT scan revealed evidence of mild tension. The left anterior chest was prepared using sterile technique. The skin and subcutaneous tissue was anesthetized with 1% lidocaine. Deeper anterior chest wall tissue including muscle and periosteum was anesthetized with 1% lidocaine. This was continued till the pleural space was entered. Bubbling was noted in this range after the pleural space was entered. The introducer needle was then introduced into the left pleural space and air bubbling was noted. Using Seldinger technique the left-sided chest tube was then put in. The chest tube was secured with suture. There was positive titling. The patient had grade 2 airleak. Complications: None Chest x-ray: Pending Acute Procedures Epistaxis Control: Time out performed: Yes
[2022-04-02] MEDS: lidocaine 2% INJ 20 mL INJECTION (11:23)
[2022-04-02 12:04] LABS: Basophils % 0.2 %; Hematocrit 36.7 % (42.0-52.0); Hemoglobin 12.2 g/dL (11.7-16.6); Lymphocytes # 0.8 10^3/uL (0.8-4.8); Lymphocytes % 8.2 %; Mean Corpuscular HGB Conc 33.2 g/dL (30.0-36.0); Mean Corpuscular Hemoglobin 32.6 pg (28.0-34.0); Mean Corpuscular Volume 98.1 fl (80-94); Mean Platelet Volume 8.8 fL (7.4-10.4); Monocytes # 0.5 10^3/uL (0.2-0.9); Monocytes % 4.7 %; Neutrophils # 8.35 10^3/uL (1.8-7.7); Neutrophils % 86.4 %; Nucleated Red Blood Cells % 0 %; Platelet Count 224 10^3/cmm (130-400); Red Blood Count 3.74 10^6/uL (4.1-5.3); Red Cell Distribution Width 13.6 % (12.1-15.1); White Blood Count 9.7 10^3/uL (4.0-10.0)
[2022-04-02 12:23] LABS: Anion Gap 15.1 (5-19); Blood Urea Nitrogen 12 mg/dL (8-23); Calcium 8.8 mg/dL (8.5-10.5); Carbon Dioxide 24 mmol/L (22-29); Chloride 102 mmol/L (98-107); Glomerular Filtration Rate 85.8 mL/min (90-130); Glucose 156 mg/dL (65-115); Osmolality Calculated 287 mOsm/kg (285-295); Potassium 4.1 mmol/L (3.5-5.1); Sodium 137 mmol/L (136-145)
--- NOTE | 2022-04-02 13:10 | P.HP_ITS ---
Providers/Chief Complaint Admitting Physician: Ibis Branch MD Primary Care Provider: Atilio Caceres MD Chief Complaint: J44.9 Chronic Obsturctive Pulmonary disease History of Present Illness Murray Cifuentes is a 61 year old male who was hospitalized today after undergoing bronchoscopic lung volume reduction procedure. The patient has gold class B COPD, severe airflow obstruction, nocturnal hypoxemia and chronic hypoxemic respiratory failure. The patient has chronic cough, sputum production and exertional shortness of breath but overall he had s been doing okay.? Although, he thinks that had been some reduction in his lung function. At home, the patient is on Advair and Spiriva.? He uses albuterol inhaler as needed.? The patient also has a diagnosis of rheumatoid arthritis and is currently on prednisone, Plaquenil and methotrexate.? The patient is currently on 2.5 mg of prednisone.? He was also given sulfasalazine however he could not tolerate it and is currently not taking it. His latest pulmonary function test in February 2022 revealed an FEV1 FVC ratio of 37% with FEV1 of 1.03 L which was 28% of predicted and forced vital capacity of 2.79 L which was 58% of predicted. His residual volume was 211% and a total lung capacity of 114%. His DLCO was 61%. The patient had a CT scan for evaluation of lung volume reduction candidacy in September 2021.? The patient has 56% emphysema in the right upper lobe, 47% in the right middle lobe and 25% in the right lower lobe.? The emphysema in the left upper lobe is 63% and the left lower lobe is 59%.? The fissure is incomplete on the right side with a fascial integrity of 82%.? The integrity on the left side is 95%.? The left upper lobe was considered to be a potential target. The patient has a total volume of about 2 L in the left upper lobe and 1674 mL in the left lower lobe. His 6-minute walk test in September was not completed.? He however walked 530 feet in 4 minutes he desaturated to 85%. His arterial blood gas analysis in June did not reveal any evidence of hypercapnic respiratory failure. On nocturnal oximetry the patient was found to be hypoxic and is currently on 2 L oxygen at nighttime. The patient had a quantitative perfusion scan which showed 64% perfusion of the right lung and 36% of the left lung. The left upper lobe had nearly 5% perfusion. After discussing the risks and benefits with the patient in detail, the patient decided to proceed with the procedure. The bronchoscopic lung volume reduction using spiration valve was performed this morning. Four 9 mm valves were deployed in the left upper lobe and lingula. The valves are in good position. The procedure was performed without any difficulty. The postprocedure chest x-ray revealed a large left-sided pneumothorax. Repeat chest x-ray approximately an hour later did reveal some worsening of the pneumothorax. There were visible fibrinous adhesion with the chest wall and the left lung. To assess the adhesion better, the patient underwent a CT scan of the chest which revealed a large pneumothorax. Additionally was noted in the apex of the left upper lobe. There is mild evidence of tension based on the CT scan. However, the patient remained hemodynamically stable. He did complain of chest discomfort, inability to take a deep breath and was tachypneic. After that, the decision was made to insert an anterior left-sided chest tube. Following the insertion of the chest tube, the patient's shortness of breath had improved. His oxygenation improved and he was able to take deeper breaths. Po st chest tube insertion chest x-ray with 20 cm of water suction revealed improved aeration of the left lung. There is still apical pneumothorax on the left which could have been secondary to a trapped lung physiology as the left upper lobe is atelectatic except the part of the left upper lobe that has a tethering with the chest wall. The patient denies any fever, night sweats, chills, orthopnea or paroxysmal nocturnal dyspnea. Review of Systems Narrative: General: No fevers chills night sweats or fatigue Skin: No rash HEENT: No nasal congestion, rhinitis, sinusitis, sneezing Neck: There is no neck swelling, mass or swollen glands. Respiratory: Cough, sputum production, left-sided chest pain, exertional shortness of breath Cardiovascular: No orthopnea, or paroxysmal nocturnal dyspnea Gastrointestinal: No abdominal pain, nausea, vomiting Musculoskeletal: No joint pain or swelling, muscle weakness Neurological: Patient is awake alert and oriented x3, no paralysis, gross motor function is normal. Psychiatric: No anxiety or depression. Medications/Allergies Home Medications Medication Instructions Recorded Confirmed Last Taken Type fluticasone 500 mcg-salmeterol 50 1 inh inhalation BID 90 days #180 11/20/21 04/02/22 04/02/22 Rx mcg/dose blistr powdr for ea inhalation (Advair Diskus) folic acid 1 mg tablet 1 mg PO DAILY #90 tabs 01/29/22 03/29/22 04/01/22 Rx hydroxychloroquine 200 mg tablet 200 mg PO BID #180 tabs 01/29/22 03/29/22 04/01/22 Rx (Plaquenil) methotrexate sodium 2.5 mg tablet See Rx Instructions .Route 01/29/22 04/02/22 03/21/22 Rx .COMPLEX #90 tabs ipratropium 0.5 mg-albuterol 3 mg 3 ml inhalation QID PRN wheezing 02/08/22 03/29/22 04/01/22 Rx (2.5 mg base)/3 mL nebulization 30 days #320 mL soln albuterol sulfate 90 mcg/actuation 2 puff inhalation Q6H PRN 02/27/22 03/29/22 04/01/22 Rx aerosol inhaler (ProAir HFA) shortness of breath or wheezing #8 grams levofloxacin 750 mg tablet 750 mg PO DAILY 5 days #5 tabs 03/29/22 03/29/22 04/01/22 Rx pantoprazole 40 mg tablet,delayed 40 mg PO DAILY 03/29/22 03/29/22 04/01/22 History release (Protonix) prednisone 20 mg tablet 40 mg PO DAILY 5 days #10 tabs 03/29/22 03/29/22 Rx cholecalciferol (vitamin D3) 50 50 mcg PO DAILY 04/02/22 04/02/22 04/01/22 History mcg (2,000 unit) capsule fluticasone propionate 50 1 spray intranasal BID PRN Allergy 04/02/22 04/02/22 04/01/22 History mcg/actuation nasal Symptoms spray,suspension tiotropium bromide 18 mcg capsule 1 cap inhalation DAILY 04/02/22 04/02/22 04/01/22 History with inhalation device (Spiriva with HandiHaler) Allergies Allergy/AdvReac Type Severity Reaction Status Date / Time Iodinated Contrast Media Allergy ALGY-Hives Verified 03/29/22 13:13 tofacitinib [From Xeljanz] AdvReac Intermediate foggy, Verified 03/29/22 13:[address] PFSH Acute PFSH: Medical History Chronic fatigue disorder Chronic gastritis COPD (chronic obstructive pulmonary disease) Elevated C-reactive protein (CRP) Gouty arthropathy High risk medication use HME (human monocytic ehrlichiosis) Immunization counseling Joint pain Seronegative rheumatoid arthritis of both hands Surgical History History of carpal tunnel surgery History of inguinal hernia repair History of knee surgery History of rotator cuff surgery History of vasectomy Family History Other CAD (coronary artery disease) Diabetes Family history of premature coronary artery disease Heart disease Lung disease Social History Smoking and tobacco status: former smoker Quit status (tobacco): has quit using tobacco Year quit tobacco: 2020 Former quit date comment: 1ppd X 45 years Alcohol intake: never Marital status: Current occupational status: employed 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 Mild distress from c hest discomfort Neck: No JVD Respiratory: Inspection: Barrel-shaped chest, left-sided anterior chest tube in place Palpation: Trachea is midline, reduced chest expansion on the left compared to the right Percussion: Hypertympanic on the left compared to the right Auscultation: Reduced breath sound bilaterally, more reduced on the left compared to the right, no wheezing or rhonchi Cardiovascular: Regular rate and rhythm, S1-S2 present, distant breath sound, no murmur, no peripheral edema Abdomen: Soft, nontender, nondistended, positive bowel sound Musculoskeletal: No obvious joint deformity Skin: No rash Lymphatic: The axillary and inguinal lymph node groups are not examined Neuro: Mental status is normal, no gross cranial nerve deficit, grossly normal motor function Data : 04/02/22 11:42 04/02/22 11:42 Other data: I have reviewed the patient's laboratory, microbiologic and radiologic data. Please see the HPI for detail A&P Assessment and plan (1) Stage 4 very severe COPD by GOLD classification: The patient has gold class B COPD.? His pulmonary function test is consistent with very severe airflow obstruction with air trapping. There is no evidence of chronic hypercapnic respiratory failure on the blood gas analysis. He has significant emphysema.? He recently underwent a CT scan for evaluation of lung volume reduction candidacy.? The left upper lobe is a potential targe. The patient walked 530 feet with a 6-minute walk test with desaturation. The perfusion scan revealed 36% overall perfusion to the left lung with less than 5% perfusion in the left upper lung zone. The patient underwent bronchoscopic lung volume reduction procedure today. Four 9mm endobronchial valves were deployed in the left upper lobe and lingula. Postprocedure the patient had developed pneumothorax which required chest tube placement. For now, the patient will receive Solu-Medrol, Levaquin, [id number] DuoNeb and Pulmicort nebulization. He is on DVT and GI prophylaxis. (2) Pneumothorax: The patient had developed large left-sided pneumothorax with mild radiographic evidence of tension. He however did not have any significant tachycardia or hypotension. Given the worsening in the chest x-ray between postprocedure and 1 hour fo llowing that, the decision was made to insert a pigtail catheter. Following placement of the pigtail catheter, there was better aeration of the left lung. Close review of the chest x-ray and CT scan of the chest revealed tethering of the lung with the chest wall. The patient will likely have subtotal atelectasis of the left upper lobe as part of the lung is tethered to the chest wall. It is unclear to me whether the left lower lobe is also tethered to the chest wall. The patient has a previous history of chest tube insertion on the left side because of pneumothorax which could have contributed to this. If however, the left lower lobe expands, the left-sided chest cavity may not have any residual space. However, there is a possibility of at least some residual space due to the large left-sided chest cavity and trapped lung physiology after endobronchial valve deployment. Fortunately, the patient had grade 2 airleak. The air leak was present only with expiration or forced expiratory maneuver such as cough. Am hoping that this will continue to heal. Am going to repeat a chest x-ray in 4 hours. If the patient still has the residual pneumothorax and is not worse than before, I will likely put the patient on waterseal and see what happens. I will closely manage this patient in concert with the nursing staff. (3) Chronic respiratory failure with hypoxia: The patient has exertional hypoxemia and nocturnal hypoxemia. He generally uses 2 L of oxygen with exertion. He is currently on high flow nasal cannula and will titrate the FiO2 down. (4) Seronegative rheumatoid arthritis of both hands: The patient is on Plaquenil and methotrexate for seronegative rheumatoid arthritis. He is receiving higher dose of Solu-Medrol and unguinal hold off on these medications for the time being. Attestations Medical Necessity Statement*: The patient will need to be closely monitored and managed for the pneumothorax and I expect him to stay approximately 72 hours in the ICU. Critical Care Time: I have spent more than 70 minutes for this patient's care other than the procedures. Coding Level of Care Code Acute Living Advisor for Iris Carranza Diagnoses Stage 4 very severe COPD by GOLD classification J44.9 Pneumothorax J93.9 Chronic respiratory failure with hypoxia J96.11 Seronegative rheumatoid arthritis of both hands M06.041; M06.042
--- NOTE | 2022-04-02 14:23 | ANE.PACU2 ---
Inpatient post-anesthesia follow up: Airway intact: Yes Vital signs: Temperature 97.8 F Pulse Rate [Curren t] 77 Pulse Rate 69 Respiratory Rate [ Current] 16 Respiratory Rate 16 Blood Pressure 120/79 Pulse Oximetry [Cu rrent] 95 Pulse Oximetry 93 Oxygen Delivery Me thod Heated High Flow Oxygen Flow Rate [ Current] 30 Oxygen Flow Rate 30 Fraction of Inspir ed Oxygen [ 35 Current] Fraction of Inspir ed Oxygen 35 Hydration adequate: Yes Nausea and vomiting: No Pain level: 3 Mental status: Baseline
--- NOTE | 2022-04-02 15:30 | XRR_ITS ---
PROCEDURE INFORMATION: Exam: XR Chest Exam date and time: 04/02/2022 3:24 PM Age: 61 years old Clinical indication: Device placement; Chest tube; Additional info: Chest tube placement TECHNIQUE: Imaging protocol: Radiologic exam of the chest. Views: 1 view. COMPARISON: CR XR chest 1V portable [id number] 04/02/2022 11:32 AM FINDINGS: Tubes, catheters and devices: A few occlusive devices are noted projecting over the left hilum similar to prior exam. Lungs: There is partial collapse of the left upper lobe with moderate size left pneumothorax which may have slightly increased in size however this could be due in part to difference in projections. Using similar measuring method, the pneumothorax now measures about 3.2 cm versus 2.6 cm on prior exam from the superolateral chest wall. The left chest tube remains in similar position with the tip in the mid/upper thorax. Right lung is grossly clear with no right pneumothorax. Pleural spaces: See Lungs finding. Heart/Mediastinum: No cardiomegaly. Bones/joints: No acute findings. Soft tissues: New soft tissue emphysema is noted on the left. XR/XR chest 1V portable [id number] IMPRESSION: 1. Left pneumothorax which may have minimally increased in size however please see discussion above. New regional soft tissue emphysema is noted. Continued clinical/imaging follow-up should be obtained. 2. Other findings are relatively stable.
--- NOTE | 2022-04-02 19:04 | PC.NURSE ---
Patient arrived to ICU at approximately 0840. BP: 164/84, HR: 112, RR: 22, Temp: 97.8. Patient is alert and oriented to person, place, time, and situation.
--- NOTE | 2022-04-02 19:06 | PC.NURSE ---
FOllowup Xray and CT shows increasing pneumothorax. Nurse assisted Dr howard with placement of chest tube. Placed into right upper chest. Xray ordered post placement. Suction set at 20. Patient reports chest pressure relief after placement of chest tube.
--- NOTE | 2022-04-02 19:07 | PC.NURSE ---
SHift SUmmary: uneventful shift. after placement of Chest tube, patient has rested comfotably in bed. Occaisonally receiving morphone for pain relief. 40mL of serousanguinous drainage from chest tube during day shift. Followup Xray scheudled for tomorow morning.
[2022-04-02] MEDS: budesonide 0.5 mg/2 mL Neb INHALATION (19:51)
[2022-04-03] VITALS (256 sets, daily range): BP systolic 101–149; BP diastolic 61–87; PULSE 54–130; RESP 7–31; TEMP 36.7–37; O2SAT 81–99; BMI 25.7
[2022-04-03] MEDS: morphine 4 mg/mL SDV 1 mL 2 MG IVP ×2 (01:27→05:38)
[2022-04-03] MEDS: ipratropium-albuterol 3 mL Neb INHALATION ×4 (02:11→19:59)
--- NOTE | 2022-04-03 06:00 | XR_ITS ---
WS: [id number] XR chest 1V portable [id number] REASON FOR EXAM: chest tube/pneumothorax followup FINDINGS: Small bore chest tube in the left hemithorax. The volume of the left pneumothorax is somewhat decreas ed compared to previous examination 04/02/2022 at 3:28 PM no change in the subcutaneous emphysema in t he left chest wall. Small airway occluders in the left lung remain unchanged in position. Right lung remains clear. XR/XR chest 1V portable [id number] IMPRESSION: Some improvement in the left pneumothorax compared to previous examination.
[2022-04-03] MEDS: budesonide 0.5 mg/2 mL Neb INHALATION ×2 (07:53→19:59)
[2022-04-03] MEDS: levofloxacin-dextrose 5 % 750 MG/150 ML PREMIX 100 MG IV (09:11)
[2022-04-03] MEDS: enoxaparin 40 mg/0.4 mL Syringe SUBCUT (09:13)
[2022-04-03] MEDS: famotidine 20 mg Tablet PO ×2 (09:14→19:35)
--- NOTE | 2022-04-03 10:39 | PC.CHAP ---
Pastoral Care Encounter/Spiritual Assessment Type of Contact [] Declined supervisor of communications visit [] Patient/Family/Request visit [] Outpatient visit [] Follow-up visit [] Physician referral [] Code/Alert [x] Routine visit [] Staff referral [] Actively dying [] Patient sleeping [] Family support [] [] Out of room [] Palliative care [] [] Receiving care in room [] Pre-surgical visit [] Trauma [] Long length of stay [x] ICU visit [] Other: Relational/Emotional Strength [] Patient feels connected with others/family/visitors/staff [] Distress [] Loneliness/isolation [] Abandonment Spirituality of Patient [] Person of Nan [] Attends Sabianist of their Nan [] Believes in Prayer [] Reads Bible or Judaism materials [] There are Spiritual issues to be addressed Manufacturing Process Technician Interventions [x] Prayer [] Active listening [] Non-anxious presence [] Spiritual/emotional support [] Crisis/trauma care [] Spiritual counseling [] Bereavement support [] Provided bereavement packet [] Provided Bible/devotional materials [] Provided toy/stuffed animal, coloring book to patient or family member [] Provided Communion [] Anointing/[place] [] Salvation [x] Completed spiritual assessment [] Other: Impact on Illness or Injury [] Angry [] Fearful [] Anxious [] Often cries [] Exhaustion [] Unable to work [] Unable to attend taoism [] Unable to walk/stand [] Unable to read [] Unable to drive [] Unable to eat/drink [] Unable to sleep [] Unable to be with family [] Patient intubated [] Other: Summary Time spent with patient
--- NOTE | 2022-04-03 13:00 | XRR_ITS ---
PROCEDURE INFORMATION: Exam: XR Chest Exam date and time: 04/03/2022 1:10 PM Age: 61 years old Clinical indication: Device placement; Chest tube; Additional info: Chest tube/pneumothorax followup - timed for 1pm TECHNIQUE: Imaging protocol: Radiologic exam of the chest. Views: 1 view. COMPARISON: CR XR chest 1V portable [id number] 04/03/2022 4:44 AM FINDINGS: Tubes, catheters and devices: Persistent moderate left-sided pneumothorax with chest tube in satisfactory position. Atelectasis noted in the right upper lung, unchanged The right lung is clear. No pleural effusion. Airway occlusive devices are again seen over the left hilar region, unchanged. Lungs: See Tubes, catheters and devices finding. Pleural spaces: See Tubes, catheters and devices finding. Heart/Mediastinum: Stable cardiomediastinal silhouette. Bones/joints: Unremarkable. Soft tissues: Persistent subcutaneous emphysema over the left chest wall. XR/XR chest 1V portable [id number] IMPRESSION: Persistent moderate left-sided pneumothorax with chest tube in satisfactory position and subcutaneous emphysema over the left chest wall.
--- NOTE | 2022-04-03 14:20 | PM.PN ---
Subjective Subjective: The patient was seen and examined throughout the day. Chest x-ray this morning while on suction revealed persistent left-sided pneumothorax. The suction was removed around 9:30 a.m. Repeat chest x-ray around 115 revealed stable pneumothorax on the left. The patient still has air leak with expiration and cough. The patient had gotten out of bed, sat in the chair and will be walking today. The patient reports feeling well. The chest discomfort he had with the suction is not present anymore. He was switched from high flow nasal cannula to nasal cannula, currently he is on 4 L oxygen saturating in the mid 90s. Bronchial alveolar lavage gram stain was negative for any microorganisms. Medications: Reviewed: Yes Vitals/I&O/Wt Last Vital Signs Temp 98.6 F 04/03/22 12:20 Pulse 79 04/03/22 13:48 Resp 18 04/03/22 13:48 BP 129/84 04/03/22 12:20 Pulse Ox 96 04/03/22 13:48 O2 Del Method 04/03/22 13:48 O2 Flow Rate 4 04/03/22 13:48 FiO2 32 04/03/22 08:00 04/02/22 04/03/22 04/03/22 22:59 06:59 14:59 Intake Total 400 / 550 300 / 850 800 / 800 Output Total 40 / 40 865 / 905 900 / 900 Balance 360 / 510 -565 / -55 -100 / -100 Weight last 48 hrs Weight 184 lb 1 oz Weight 187 lb Physical Exam Narrative: General: Patient is awake alert and oriented. In no discomfort Neck: No JVD Respiratory: Inspection: Barrel-shaped chest, left-sided anterior chest tube in place Palpation: Trachea is midline, reduced chest expansion on the left compared to the right Percussion: Hypertympanic on the left compared to the right Auscultation: Reduced breath sound bilaterally, more reduced on the left compared to the right, no wheezing or rhonchi Cardiovascular: Regular rate and rhythm, S1-S2 present, distant breath sound, no murmur, no peripheral edema Abdomen: Soft, nontender, nondistended, positive bowel sound Musculoskeletal: No obvious joint deformity Skin: No rash Lymphatic: The axillary and inguinal lymph node groups are not examined Neuro: Mental status is normal, no gross cranial nerve deficit, grossly normal motor function Data : 04/02/22 11:42 04/02/22 11:42 Micro: Microbiology 04/02/22 07:25 Gram Stain - Final Lung Right Middle Lobe Bronchial Washings Culture - Preliminary Other data: Please see the subjective part for more detail radiologic data A&P Assessment and plan (1) Stage 4 very severe COPD by GOLD classification: The patient has gold class B COPD.? His pulmonary function test is consistent with very severe airflow obstruction with air trapping. There is no evidence of chronic hypercapnic respiratory failure on the blood gas analysis. He has significant emphysema.? He recently underwent a CT scan for evaluation of lung volume reduction candidacy.? The left upper lobe is a potential targe. The patient walked 530 feet with a 6-minute walk test with desaturation. The perfusion scan revealed 36% overall perfusion to the left lung with less than 5% perfusion in the left upper lung zone. The patient underwent bronchoscopic lung volume reduction procedure on 04/02. Four 9mm endobronchial valves were deployed in the left upper lobe and lingula. Postprocedure the patient had developed pneumothorax which required chest tube placement. His dose of Solu-Medrol was reduced to 40 mg every 24 hours this morning. He will continue DuoNeb and Pulmicort nebulization. He is on DVT and GI prophylaxis. (2) Pneumothorax: The patient had developed large left-sided pneumothorax with mild radiographic evidence of tension. He however did not have any significant tachycardia or hypotension. Given the worsening in the chest x-ray between postprocedure and 1 hour following that, the decision was made to insert a pigtail catheter. Following placement of the pigtail catheter, there was better aeration of the left lung. Currently, the patient has stable left apical pneumothorax without suction. The left apical pneumothorax had sustained despite being on suction which would be consistent with a trapped lung physiology. After removing suction, the pneumothorax had remained stable as well. The plan is going to be repeating a chest x-ray in 4 hours again and if stable repeat one tomorrow morning. If the pneumothorax remains the same, I will likely clamp the chest tube and see if there is any worsening of the pneumothorax. If not, the persistent pneumothorax would be consistent with pneumothorax ex vacuo, trapped lung physiology. If that turns out to be the case, I will be able to remove the chest tube hopefully by Friday. (3) Chronic respiratory failure with hypoxia: The patient has exertional hypoxemia and nocturnal hypoxemia. He generally uses 2 L of oxygen with exertion. Currently is on 4 L oxygen. (4) Seronegative rheumatoid arthritis of both hands: The patient is on Plaquenil and methotrexate for seronegative rheumatoid arthritis. He is receiving higher dose of Solu-Medrol and unguinal hold off on these medications for the time being. Attestations Medical Necessity Statement*: The patient will need to be closely monitored and managed for the pneumothorax and I expect him to stay approximately 48 hours in the ICU. Coding Level of Care Code Acute [facility] for [facility] Diagnoses Stage 4 very severe COPD by GOLD classification J44.9 Pneumothorax J93.9 Chronic respiratory failure with hypoxia J96.11 Seronegative rheumatoid arthritis of both hands M06.041; M06.042
--- NOTE | 2022-04-03 15:33 | PC.NURSE ---
Pr Dr howard orders, nurse turned off suction at 0900. Followup Xray at 1pm.
--- NOTE | 2022-04-03 15:33 | PC.NURSE ---
AMbulated patient in angulo. He walked approximately 75 feet. Oxygen saturations stayed in the low 90's. Heart rate in the 120's while ambulated, but quickly went back to within normal limits aftergetting back to bed. Patient reports that it felt good to walk, but he was winded .
--- NOTE | 2022-04-03 18:00 | XRR_ITS ---
PROCEDURE INFORMATION: Exam: XR Chest Exam date and time: 04/03/2022 5:45 PM Age: 61 years old Clinical indication: Other: Chest tube; Prior surgery; Additional info: Pneumothorax followup TECHNIQUE: Imaging protocol: Radiologic exam of the chest. Views: 1 view. COMPARISON: CR XR chest 1V portable [id number] 04/03/2022 1:10 PM FINDINGS: Tubes, catheters and devices: Left apical pneumothorax again seen with approximately 7.5 cm separation between the lung and pleura with a left upper lobe superiorly directed chest tube, similar to prior exam. Lungs: Unremarkable. No consolidation. Pleural spaces: Unremarkable. No pleural effusion. No pneumothorax. Heart/Mediastinum: Unremarkable. No cardiomegaly. Bones/joints: Unremarkable. Soft tissues: Subcutaneous emphysema over the left chest. XR/XR chest 1V portable [id number] IMPRESSION: 1. Left apical pneumothorax again seen with approximately 7.5 cm separation between the lung and pleura with a left upper lobe superiorly directed chest tube, similar to prior exam. 2. Subcutaneous emphysema over the left chest.
--- NOTE | 2022-04-03 19:30 | PC.NURSE ---
Radiology dept performed a chest Xray at 1800. Nurse alerted Dr howard and was advised to keep the chest tube/atrium to water seal. It has been to water seal since 0900. Repeat chest xray at [address] howard with results to determine if its appropriate to clamp cthe chest tube.
--- NOTE | 2022-04-03 19:37 | PC.NURSE ---
SHift SUmmary: Uneventful shift. Patient rested in bed for most of the day, but was up to a chair for 2 hours and ambulated 75 feet. Chest tube was set to water seal at 0900 and remained with water seal throughout the day per Dr howard orders following multiple followup Xrays. Additional follow up xrays scheduled for tommorow. Patient is no longer reporting pain with breathing and has not required any pain medications today.
[2022-04-04] VITALS (62 sets, daily range): BP systolic 99–151; BP diastolic 56–97; PULSE 72–118; RESP 12–29; TEMP 36.7–37.1; O2SAT 91–100
[2022-04-04] MEDS: ipratropium-albuterol 3 mL Neb INHALATION ×4 (01:34→20:29)
--- NOTE | 2022-04-04 06:58 | PC.NURSE ---
Patient rested comfortably throughout the night. No reports of pain or discomfort. No prn meds needed.
[2022-04-04] MEDS: budesonide 0.5 mg/2 mL Neb INHALATION ×2 (07:53→20:29)
[2022-04-04] MEDS: levofloxacin-dextrose 5 % 750 MG/150 ML PREMIX 100 MG IV (09:30)
[2022-04-04] MEDS: famotidine 20 mg Tablet PO ×2 (09:30→17:57)
[2022-04-04] MEDS: enoxaparin 40 mg/0.4 mL Syringe SUBCUT (09:37)
--- NOTE | 2022-04-04 10:00 | XR_ITS ---
WS: [id number] XR chest 1V portable [id number] REASON FOR EXAM: pneumothorax FINDINGS: Significant left pneumothorax. There appears to be slightly more expansion of the left lung compared to the examination of 5:58 AM t his same day. Small bore chest tube remains in place, unchanged. Extensive subcutaneous emphysema in both anterior chest voss and the base of the neck bilaterally. N o change from earlier today. Likely The bronchial occluders are unchanged in position and orientation. No new findings. XR/XR chest 1V portable [id number] IMPRESSION: Left pneumothorax with interval mildly increased expansion of the left lung com pared to the examination of earlier today
--- NOTE | 2022-04-04 10:00 | XRR_ITS ---
PROCEDURE INFORMATION: Exam: XR Chest Exam date and time: 04/04/2022 5:58 AM Age: 61 years old Clinical indication: Device placement; Chest tube; Additional info: Pneumothorax followup TECHNIQUE: Imaging protocol: Radiologic exam of the chest. Views: 1 view. COMPARISON: CR (CHEST, ) 04/03/2022 5:45 PM FINDINGS: Tubes, catheters and devices: Persistent moderate left sided pneumothorax with chest tube in satisfactory position. Closure device in the left hilar region with atelectasis of the left upper lobe is re-identified. Streaky left basilar atelectasis noted. The right lung is clear. No large pleural effusion. Lungs: See Tubes, catheters and devices finding. Pleural spaces: See Tubes, catheters and devices finding. Heart/Mediastinum: Stable cardiomediastinal silhouette. Bones/joints: Unremarkable. Soft tissues: Subcutaneous emphysema is again seen over the chest wall bilaterally. XR/XR chest 1V portable [id number] IMPRESSION: No interval change.
--- NOTE | 2022-04-04 10:30 | PC.CHAP ---
Pastoral Care Encounter/Spiritual Assessment Type of Contact [] Declined r&d engineer visit [] Patient/Family/Request visit [] Outpatient visit [] Follow-up visit [] Physician referral [] Code/Alert [x] Routine visit [] Staff referral [] Actively dying [] Patient sleeping [] Family support [] [] Out of room [] Palliative care [] [x] Receiving care in room [] Pre-surgical visit [] Trauma [] Long length of stay [x] ICU visit [] Other: Relational/Emotional Strength [] Patient feels connected with others/family/visitors/staff [] Distress [] Loneliness/isolation [] Abandonment Spirituality of Patient [] Person of Nan [] Attends Voodoo of their Nan [] Believes in Prayer [] Reads Bible or Cheondoism materials [] There are Spiritual issues to be addressed Cardiac/Vascular Sonographer Interventions [x] Prayer [] Active listening [] Non-anxious presence [] Spiritual/emotional support [] Crisis/trauma care [] Spiritual counseling [] Bereavement support [] Provided bereavement packet [] Provided Bible/devotional materials [] Provided toy/stuffed animal, coloring book to patient or family member [] Provided Communion [] Anointing/[place] [] Salvation [x] Completed spiritual assessment [] Other: Impact on Illness or Injury [] Angry [] Fearful [] Anxious [] Often cries [] Exhaustion [] Unable to work [] Unable to attend lutheran [] Unable to walk/stand [] Unable to read [] Unable to drive [] Unable to eat/drink [] Unable to sleep [] Unable to be with family [] Patient intubated [] Other: Summary Time spent with patient
--- NOTE | 2022-04-04 12:21 | PC.NURSE ---
0745 Clamped chest tube per Dr. Branch's order. 0750 Patient c/o increased shortness of breath. Increased work of breathing observed. Vital signs remained stable. 0755 Dr. Branch notified. Orders to unclamp chest tube. Patient's work of breathing improved when chest tube was unclamped. Patient reported decreased shortness of breath. Keep chest tube open per Dr. Branch.
--- NOTE | 2022-04-04 13:28 | PC.NURSE ---
Reported increased swelling in patient's neck and face after a lot of coughing to Dr. Branch. Orders for CXR and carmelasalmariama lopez.
[2022-04-04] MEDS: benzonatate 100 mg Capsule PO (13:41)
--- NOTE | 2022-04-04 15:42 | PM.PN ---
Subjective Subjective: Patient was seen and examined. No overnight events. He had done very well and slept at night. This morning, the chest x-ray revealed persistent left apical pneumothorax. His chest tube was clamped however within a few minutes the patient complained of worsening shortness of breath and the chest tube was put to waterseal. The patient had done fairly well until about 1:15 PM at which time he had a severe bout of cough. This was followed by increased subcutaneous emphysema in the neck and facial area. A chest x-ray obtained after this event did not reveal any worsening of the left-sided pneumothorax. In fact, the lung expansion appeared to have been better. Although radiologically there has been no significant worsening of the subcutaneous emphysema since this morning, compared to the very first time when the chest tube was inserted, the subcutaneous emphysema has certainly progressed. He is hemodynamically completely stable. He is saturating in the mid 90s with 2 L oxygen. After this, the patient was started on suction. No significant chest discomfort was present this time with addition of suction. BAL culture had no microorganism. Medications: Reviewed: Yes Vitals/I&O/Wt Last Vital Signs Temp 98.7 F 04/04/22 07:00 Pulse 78 04/04/22 15:00 Resp 16 04/04/22 15:00 BP 113/86 04/04/22 14:00 Pulse Ox 94 04/04/22 15:00 O2 Del Method 04/04/22 15:00 O2 Flow Rate 2 04/04/22 15:00 FiO2 32 04/03/22 08:00 04/04/22 04/04/22 04/04/22 06:59 14:59 22:59 Intake Total 600 / 1550 650 / 650 Output Total 200 / 1395 850 / 850 Balance 400 / 155 -200 / -200 Weight last 48 hrs Weight 187 lb Weight 184 lb 1 oz Physical Exam Narrative: General: Patient is awake alert and oriented. In no discomfort, mild change in voice and subcutaneous emphysema noted bilateral upper chest and the in neck area Neck: No JVD Respiratory: Inspection: Barrel-shaped chest, left-sided anterior chest tube in place Palpation: Trachea is midline, reduced chest expansion on the left compared to the right Percussion: Hypertympanic on the left compared to the right Auscultation: Reduced breath sound bilaterally, more reduced on the left compared to the right, mild rhonchi on the right side, more rhonchorous on the left side today Cardiovascular: Regular rate and rhythm, S1-S2 present, distant breath sound, no murmur, no peripheral edema Abdomen: Soft, nontender, nondistended, positive bowel sound Musculoskeletal: No obvious joint deformity Skin: No rash Lymphatic: The axillary and inguinal lymph node groups are not examined Neuro: Mental status is normal, no gross cranial nerve deficit, grossly normal motor function Data : 04/02/22 11:42 04/02/22 11:42 Micro: Microbiology 04/02/22 07:25 Gram Stain - Final Lung Right Middle Lobe Bronchial Washings Culture - Final A&P Assessment and plan (1) Stage 4 very severe COPD by GOLD classification: The patient has gold class B COPD.? His pulmonary function test is consistent with very severe airflow obstruction with air trapping. There is no evidence of chronic hypercapnic respiratory failure on the blood gas analysis. He has significant emphysema.? He recently underwent a CT scan for evaluation of lung volume reduction candidacy.? The left upper lobe is a potential targe. The patient walked 530 feet with a 6-minute walk test with desaturation. The perfusion scan revealed 36% overall perfusion to the left lung with less than 5% perfusion in the left upper lung zone. The patient underwent bronchoscopic lung volume reduction procedure on 04/02. Four 9mm endobronchial valves were deployed in the left upper lobe and lingula. Postprocedure the patient had developed pneumothorax which required chest tube placement. His is on Solu-Medrol 40 mg every 24 hours. He will continue DuoNeb and Pulmicort nebulization. He is on DVT and GI prophylaxis. (2) Pneumothorax: The patient had developed large left-sided pneumothorax with mild radiographic evidence of tension. He however did not have any significant tachycardia or hypotension. Given the worsening in the chest x-ray between postprocedure and 1 hour following that, the decision was made to insert a pigtail catheter. Following placement of the pigtail catheter, there was better aeration of the left lung. The patient continues to have grade 2 airleak. This could be secondary to pressure dependent airleak. Interestingly, the patient became very symptomatic within 5 minutes after clamping of the chest tube despite being completely okay on waterseal for nearly 36 hours. The patient has also developed worsening subcutaneous emphysema despite having improving left lower lobe expansion. At this point, I have put the patient on suction which will continue till 10 PM. After that we will obtain a chest x-ray on suction and discontinue the suction. Repeat chest x-ray will be obtained at 6 AM tomorrow morning. If the patient has stable pneumothorax, I will try the patient on Heimlich valve if this is available. If not, I will try to clamp the chest tube and see what happens again. In any case, the patient is unlikely to be discharged tomorrow. (3) Chronic respiratory failure with hypoxia: The patient has exertional hypoxemia and nocturnal hypoxemia. He generally uses 2 L of oxygen with exertion. The patient is on 2 L oxygen now saturating in the mid 90s. (4) Seronegative rheumatoid arthritis of both hands: The patient is on Plaquenil and methotrexate for seronegative rheumatoid arthritis. He is receiving higher dose of Solu-Medrol and unguinal hold off on these medications for the time being. Attestations Medical Necessity Statement*: The patient is likely to spend more than 48 hours in the ICU at this point. Coding Level of Care Code Acute Wash Tub Machine Operator for [facility] Diagnoses Stage 4 very severe COPD by GOLD classification J44.9 Pneumothorax J93.9 Chronic respiratory failure with hypoxia J96.11 Seronegative rheumatoid arthritis of both hands M06.041; M06.042
--- NOTE | 2022-04-04 22:00 | XRR_ITS ---
PROCEDURE INFORMATION: Exam: XR Chest Exam date and time: 04/04/2022 9:37 PM Age: 61 years old Clinical indication: Other: Pneuma; Additional info: Chest tube TECHNIQUE: Imaging protocol: Radiologic exam of the chest. Views: 1 view. COMPARISON: CR XR chest 1V portable [id number] 04/04/2022 1:28 PM FINDINGS: Tubes, catheters and devices: A left-sided chest tube is in place. There has been interval decrease in the previously seen left pneumothorax Lungs: . Trace residual pneumothorax is suspected. No new acute findings in the chest. Dependent opacities in the lower lobes, likely atelectasis. . Pleural spaces: No significant pleural effusion. Heart/Mediastinum: Stable in appearance. No cardiomegaly. Bones/joints: Unremarkable. Soft tissues: Post intervention changes are seen along the left chest wall. XR/XR chest 1V portable [id number] IMPRESSION: 1. Significant interval decrease in the left pneumothorax. Stable position of the left chest tube. 2. No new acute radiographic findings in the chest.
[2022-04-05] VITALS (94 sets, daily range): BP systolic 93–130; BP diastolic 56–104; PULSE 81–121; RESP 8–27; TEMP 36.1–36.8; O2SAT 85–96
--- NOTE | 2022-04-05 00:45 | PC.NURSE ---
2200 Chest Xray was reported to Dr. Branch by phone. Order to DC suction to chest tube was received as well as repeat Xray for 0600. Patient is tolerating well without suction and clamp open. +1/+2 leak still present on exhale. Subcutaneous emphysema present around upper chest and lateral neck areas. Patient remains on 2L Nasal Cannula.
--- NOTE | 2022-04-05 06:00 | XR_ITS ---
WS: [id number] XR chest 1V portable [id number] REASON FOR EXAM: Trial of chest tube without suction FINDINGS: Difficult to determine residual pneumothorax in the upper third of the chest due to the overlying sca pula and subcutaneous emphysema. It appears there are lung markings through the upper third of the seng ng. A small residual pneumothorax is seen medially. The left lung appears more expanded than on the e xamination of 1:10 PM 04/03/2022. Unexpanded lung associated with the bronchial occluders which has stabilized over the last several ch est x-rays. Of some concern, there appears to be increased subcutaneous emphysema, especially in the right chest wall compared to the previous examination of 04/03/2022. XR/XR chest 1V portable [id number] IMPRESSION: Improved expansion of the left lung with small residual identifiable. Residual pneumothorax difficult to quantify due to overlying scapula and subcutaneous em physema. Increased subcutaneous emphysema compared to the last examination. Subcutaneous emphysema have been resolving up to that point.
[2022-04-05] MEDS: budesonide 0.5 mg/2 mL Neb INHALATION ×2 (08:05→20:29)
[2022-04-05] MEDS: ipratropium-albuterol 3 mL Neb INHALATION ×3 (08:05→20:29)
[2022-04-05] MEDS: levofloxacin-dextrose 5 % 750 MG/150 ML PREMIX 100 MG IV (09:41)
[2022-04-05] MEDS: famotidine 20 mg Tablet PO ×2 (09:41→17:22)
[2022-04-05] MEDS: enoxaparin 40 mg/0.4 mL Syringe SUBCUT (09:41)
--- NOTE | 2022-04-05 10:04 | PC.NURSE ---
Per Dr howard orders Nurse clamped the chest tube and continued to assess. About 20 minutes after clamping the chest tube, Patient's subq emphysema worsesned, almost closing up his left eye. Lung sounds on the left side are diminished, unsure if this is reduced air flow or harder to hear due to increase subq emphysema. Patient reports some increased difficulty breathing, but states it is a very small change. NUrse alerted Dr howard and was ordered to place chest tube back to suction.
--- NOTE | 2022-04-05 10:06 | PC.NURSE ---
Patient has not had a bowel movement for 4 days. Stomach feels firmer than previous days. Nurse alerted Dr howard and received orders for miralax and colace.
[2022-04-05] MEDS: docusate sodium 100 mg Capsule PO (10:26)
[2022-04-05] MEDS: polyethylene glycol 3350 Pkt 17 gm PO (10:26)
--- NOTE | 2022-04-05 10:30 | PC.CHAP ---
Pastoral Care Encounter/Spiritual Assessment Type of Contact [] Declined lens and frames prescription clerk visit [] Patient/Family/Request visit [] Outpatient visit [] Follow-up visit [] Physician referral [] Code/Alert [x] Routine visit [] Staff referral [] Actively dying [] Patient sleeping [] Family support [] [] Out of room [] Palliative care [] [] Receiving care in room [] Pre-surgical visit [] Trauma [] Long length of stay [x] ICU visit [] Other: Relational/Emotional Strength [] Patient feels connected with others/family/visitors/staff [] Distress [] Loneliness/isolation [] Abandonment Spirituality of Patient [] Person of Nan [] Attends Anabaptist of their Nan [] Believes in Prayer [] Reads Bible or Orthodoxy materials [] There are Spiritual issues to be addressed Provider Education Specialist Interventions [x] Prayer [] Active listening [] Non-anxious presence [] Spiritual/emotional support [] Crisis/trauma care [] Spiritual counseling [] Bereavement support [] Provided bereavement packet [] Provided Bible/devotional materials [] Provided toy/stuffed animal, coloring book to patient or family member [] Provided Communion [] Anointing/[place] [] Salvation [x] Completed spiritual assessment [] Other: Impact on Illness or Injury [] Angry [] Fearful [] Anxious [] Often cries [] Exhaustion [] Unable to work [] Unable to attend druze [] Unable to walk/stand [] Unable to read [] Unable to drive [] Unable to eat/drink [] Unable to sleep [] Unable to be with family [] Patient intubated [] Other: Summary Time spent with patient
--- NOTE | 2022-04-05 12:38 | P.PN_ITS ---
Subjective Subjective: The patient was seen and examined. Yesterday, after application of the suction through the chest tube, his subcutaneous emphysema had significantly improved. The repeat chest x-ray on suction last night revealed improvement of the lung expansion as well as improvement of subcutaneous emphysema. The patient was off suction overnight. Repeat chest x-ray this morning revealed similar left-sided pneumothorax however there had been an increase in the subcutaneous emphysema. This morning after his morning walk, the patient was accidentally sitting on the chest tube and there was no drainage of the left pleural cavity. This had resulted in rapid development of subcutaneous emphysema. These findings would be consistent with pressure independent air leak. Unfortunately, the patient is also having some accumulation of air with waterseal. Other than that, the patient walked this morning and reported improvement in his exercise capacity prior to his procedure. No other complications. He is only on 2 L oxygen and saturating in the mid to high 90s. There is no complication with the chest tube. Medications: Reviewed: Yes Vitals/I&O/Wt Last Vital Signs Temp 98.3 F 04/05/22 07:45 Pulse 97 04/05/22 08:15 Resp 16 04/05/22 08:15 BP 115/83 04/05/22 08:00 Pulse Ox 93 04/05/22 08:15 O2 Del Method 04/05/22 08:15 O2 Flow Rate 2 04/05/22 08:15 FiO2 32 04/03/22 08:00 04/04/22 04/05/22 04/05/22 22:59 06:59 14:59 Intake Total 300 / 950 Output Total 710 / 1560 175 / 1735 740 / 740 Balance -410 / -610 -175 / -785 -740 / -740 Weight last 48 hrs Weight 187 lb Physical Exam Narrative: General: Patient is awake alert and oriented. Subcutaneous area around the left eye and chest wall. Neck: No JVD Respiratory: Inspection: Barrel-shaped chest, left-sided anterior chest tube in place Palpation: Trachea is midline, reduced chest expansion on the left compared to the right Percussion: Hypertympanic on the left compared to the right Auscultation: Reduced breath sound bilaterally, more reduced on the left compared to the right, minimal to no rhonchi on the right side, no rhonchus on the left side Cardiovascular: Regular rate and rhythm, S1-S2 present, distant breath sound, no murmur, no peripheral edema Abdomen: Soft, nontender, nondistended, positive bowel sound Musculoskeletal: No obvious joint deformity Skin: No rash Lymphatic: The axillary and inguinal lymph node groups are not examined Neuro: Mental status is normal, no gross cranial nerve deficit, grossly normal motor function Data : 04/02/22 11:42 04/02/22 11:42 Micro: Microbiology 04/02/22 07:25 Gram Stain - Final Lung Right Middle Lobe Bronchial Washings Culture - Final A&P Assessment and plan (1) Stage 4 very severe COPD by GOLD classification: The patient has gold class B COPD.? His pulmonary function test is consistent with very severe airflow obstruction with air trapping. There is no evidence of chronic hypercapnic respiratory failure on the blood gas analysis. He has significant emphysema.? He recently underwent a CT scan for evaluation of lung volume reduction candidacy.? The left upper lobe is a potential targe. The patient walked 530 feet with a 6-minute walk test with desaturation. The perfusion scan revealed 36% overall perfusion to the left lung with less than 5% perfusion in the left upper lung zone. The patient underwent bronchoscopic lung volume reduction procedure on 04/02. Four 9mm endobronchial valves were deployed in the left upper lobe and lingula. Postprocedure the patient had developed pneumothorax which required chest tube placement. The patient received Solu-Medrol 40 mg this morning. From tomorrow he is going to receive 20 mg of prednisone. He will continue DuoNeb and Pulmicort nebulization. He is on DVT and GI prophylaxis. (2) Pneumothorax: The patient had developed large left-sided pneumothorax with mild radiographic evidence of tension. He however did not have any significant tachycardia or hypotension. Given the worsening in the chest x-ray between postprocedure and 1 hour following that, the decision was made to insert a pigtail catheter. Following placement of the pigtail catheter, there was better aeration of the left lung. The patient continues to have grade 2 airleak. This is likely somewhat better than couple of days ago. The patient clearly had worsening subcutaneous emphysema after accidental clamping of the chest tube. There is also minimal accumulation of air leading to subcutaneous emphysema when the patient is on waterseal. As a result, the patient is not ready for Heimlich valve yet. We are hoping over the next couple of days the air leak will decreased and will be able to manage the patient safely with waterseal drainage. At that point, we may be able to discharge him home with Heimlich valve. I have discussed this with the patient and his this morning. We had also discussed the possibility of the necessity to remove the valve in the future however this is too early to decide that. The patient is reporting a significant improvement in his exercise tolerance compared to before. I have encouraged him to walk around the unit multiple times a day as long as this is safely doable. (3) Chronic respiratory failure with hypoxia: The patient has exertional hypoxemia and nocturnal hypoxemia. He generally uses 2 L of oxygen with exertion. The patient is on 2 L oxygen now saturating in the mid 90s. We will see how much oxygen he needs during his exercise. (4) Seronegative rheumatoid arthritis of both hands: The patient is on Plaquenil and methotrexate for seronegative rheumatoid ar thritis. We are switching his Solu-Medrol to prednisone from tomorrow morning. Am going to obtain blood work tomorrow morning and I will consider starting the Plaquenil. Attestations Medical Necessity Statement*: The patient is likely to spend more than 48 hours in the hospital. Coding Level of Care Code Acute Deputy Of Counter Intelligence for Iris Carranza Diagnoses Stage 4 very severe COPD by GOLD classification J44.9 Pneumothorax J93.9 Chronic respiratory failure with hypoxia J96.11 Seronegative rheumatoid arthritis of both hands M06.041; M06.042
--- NOTE | 2022-04-05 14:45 | XRR_ITS ---
PROCEDURE INFORMATION: Exam: XR Chest Exam date and time: 04/05/2022 3:03 PM Age: 61 years old Clinical indication: Condition or disease; Lung condition and disease; Emphysema; Other: Subcutaeneous; Additional info: Subcutaeneous emphysema TECHNIQUE: Imaging protocol: Radiologic exam of the chest. Views: 1 view. COMPARISON: CR XR chest 1V portable [id number] 04/05/2022 6:07 AM FINDINGS: Tubes, catheters and devices: The left chest tube drainage catheter remains in the same position. Lungs: See Pleural spaces finding. Right lung remains clear. Pleural spaces: Again seen is left pneumothorax now measuring about 3.7 cm from the superolateral chest wall margin, versus 5.6 cm previously. Partial re-expansion of the left lung is noted. Heart/Mediastinum: No cardiomegaly. Bones/joints: No acute findings. Soft tissues: Extensive soft tissue air is again noted, probably with minimal change. Other findings: Single portable AP upright view at 3:04 p.m. versus 6:08 a.m. same day. No other significant change. XR/XR chest 1V portable [id number] IMPRESSION: Improvement of left pneumothorax. Stable chest tube position. Further re-expansion of the left lung. No other significant change.
--- NOTE | 2022-04-05 14:46 | PC.NURSE ---
After initially improving, the swelling to the patient's left eye has now worsened. Right eye now owens subcutaneous emphysema as well. Lung sounds on left side sound more coarse than earlier today, Unsure if the sounds are crepitus from the subq emphysema or pleural rub of the chest tube. VItals remained unchanged and within normal limits. Nurse alerted Dr Branch and received orders for a chest xray. Chest tube is currently set to suction with a pressure of -[address] Branch orders.
--- NOTE | 2022-04-05 17:46 | PC.NURSE ---
Shift SUmmary: patient has ambulated 3 times today,about 500 feet each time. Subcutaneous emphysema has spread to both eyes and increased in the neck, especially after the brief clamping of the chest tube. CHest tube hooked back up to suction per Dr howard orders after increased SE. SE in the back has decreased. Right lung sounds have been clear all day, left lung sounds have been coarse throughout the day with either crepitus or friction rub present. Patient has Ambulated in the angulo 3 times and has done standing exercises at bedside. Dressing to left upper chest appears unremarkable and unchanged. Patient has had a bowel movement today. Total output form Chest tube has been 65 mL of serosanguinous.
[2022-04-06] VITALS (46 sets, daily range): BP systolic 93–135; BP diastolic 63–93; PULSE 78–114; RESP 11–30; TEMP 36.6–37.2; O2SAT 87–97; BMI 27.3
[2022-04-06 05:00] LABS: Basophils % 0.3 %; Eosinophils # 0.4 10^3/uL (0.0-0.8); Eosinophils % 3.1 %; Hematocrit 39.5 % (42.0-52.0); Hemoglobin 12.9 g/dL (11.7-16.6); Lymphocytes # 2.5 10^3/uL (0.8-4.8); Lymphocytes % 21.8 %; Mean Corpuscular HGB Conc 32.7 g/dL (30.0-36.0); Mean Corpuscular Hemoglobin 32.6 pg (28.0-34.0); Mean Corpuscular Volume 99.7 fl (80-94); Mean Platelet Volume 9.1 fL (7.4-10.4); Monocytes # 0.9 10^3/uL (0.2-0.9); Monocytes % 7.9 %; Neutrophils # 7.58 10^3/uL (1.8-7.7); Neutrophils % 66.2 %; Nucleated Red Blood Cells % 0 %; Platelet Count 248 10^3/cmm (130-400); Red Blood Count 3.96 10^6/uL (4.1-5.3); Red Cell Distribution Width 13.5 % (12.1-15.1); White Blood Count 11.5 10^3/uL (4.0-10.0)
[2022-04-06 05:26] LABS: Anion Gap 12.9 (5-19); Blood Urea Nitrogen 18 mg/dL (8-23); Calcium 8.7 mg/dL (8.5-10.5); Carbon Dioxide 28 mmol/L (22-29); Chloride 98 mmol/L (98-107); Glomerular Filtration Rate 85.8 mL/min (90-130); Glucose 240 mg/dL (65-115); Osmolality Calculated 290 mOsm/kg (285-295); Potassium 3.9 mmol/L (3.5-5.1); Sodium 135 mmol/L (136-145)
--- NOTE | 2022-04-06 05:26 | XRR_ITS ---
PROCEDURE INFORMATION: Exam: XR Chest Exam date and time: 04/06/2022 5:39 AM Age: 61 years old Clinical indication: Device placement; Chest tube TECHNIQUE: Imaging protocol: Radiologic exam of the chest. Views: 1 view. COMPARISON: CR XR chest 1V portable [id number] 04/05/2022 3:03 PM FINDINGS: Tubes, catheters and devices: Left-sided chest tube noted in place, similar to prior exam. Lungs: Overall decreased pulmonary markings on the right likely consistent with emphysematous disease. Atelectasis in the left lung. Small metallic appearing devices again noted in the left hilar region. Pleural spaces: Persistent left-sided pneumothorax. Heart/Mediastinum: The cardiomediastinal silhouette is within normal limits. Bones/joints: Unremarkable. Soft tissues: Significant bilateral subcutaneous emphysema. XR/XR chest 1V portable [id number] IMPRESSION: No significant change from prior exam.
--- NOTE | 2022-04-06 05:36 | PC.NURSE ---
Chest Xray No morning chest xray ordered for patient. Dr. Branch contacted and order received for a chest xray now while chest tube remains with suction. Order placed.
[2022-04-06] MEDS: ipratropium-albuterol 3 mL Neb INHALATION ×3 (08:55→20:25)
[2022-04-06] MEDS: budesonide 0.5 mg/2 mL Neb INHALATION ×2 (08:55→20:26)
--- NOTE | 2022-04-06 09:07 | P.PN_ITS ---
Subjective Subjective: The patient was seen and examined this morning. Overall he had an uneventful night. Chest x-ray this morning reveals persistent left-sided pneumothorax. According to my evaluation, the pneumothorax looks better than before. However, the patient has persistent grade 2 airleak. The airleak seems to be better than before however is still there. His blood sugar was high on blood work this morning. His A1c in June 2021 was 7.2. The patient has developed steroid-induced hyperglycemia in the setting of diabetes. He has mildly elevated WBC likely secondary to the steroid. No fever. He is hemodynamically completely stable. Saturating in the mid to high 90s with 2 L oxygen. Medications: Reviewed: Yes Vitals/I&O/Wt Last Vital Signs Temp 97.8 F 04/06/22 04:00 Pulse 94 04/06/22 06:00 Resp 14 04/06/22 06:00 BP 115/69 04/06/22 06:00 Pulse Ox 94 04/06/22 06:00 O2 Del Method 04/06/22 06:00 O2 Flow Rate 2 04/06/22 06:00 FiO2 32 04/03/22 08:00 04/05/22 04/06/22 04/06/22 22:59 06:59 14:59 Intake Total 150 / 450 350 / 800 Output Total 346 / 1086 335 / 1421 Balance -196 / -636 15 / -621 Weight last 48 hrs Weight 196 lb 6.4 oz Weight 198 lb 8 oz Physical Exam Narrative: General: Patient is awake alert and oriented. Subcutaneous area around the eyes and chest wall but no significant worsening Neck: No JVD Respiratory: Inspection: Barrel-shaped chest, left-sided anterior chest tube in place Palpation: Trachea is midline, reduced chest expansion on the left compared to the right Percussion: Hypertympanic on the left compared to the right Auscultation: Reduced breath sound bilaterally, more reduced on the left compared to the right, minimal to no rhonchi on the right side, no rhonchus on the left side, audible movement of air through the chest tube Cardiovascular: Regular rate and rhythm, S1-S2 present, distant breath sound, no murmur, no peripheral edema Abdomen: Soft, nontender, nondistended, positive bowel sound Musculoskeletal: No obvious joint deformity Skin: No rash Lymphatic: The axillary and inguinal lymph node groups are not examined Neuro: Mental status is normal, no gross cranial nerve deficit, grossly normal motor function Data : 04/06/22 04:31 04/06/22 04:31 A&P Assessment and plan (1) Stage 4 very severe COPD by GOLD classification: The patient has gold class B COPD.? His pulmonary function test is consistent with very severe airflow obstruction with air trapping. There is no evidence of chronic hypercapnic respiratory failure on the blood gas analysis. He has significant emphysema.? He recently underwent a CT scan for evaluation of lung volume reduction candidacy.? The left upper lobe is a potential targe. The patient walked 530 feet with a 6-minute walk test with desaturation. The perfusion scan revealed 36% overall perfusion to the left lung with less than 5% perfusion in the left upper lung zone. The patient underwent bronchoscopic lung volume reduction procedure on 04/02. Four 9 mm endobronchial valves were deployed in the left upper lobe and lingula. Postprocedure the patient had developed pneumothorax which required chest tube placement. The patient is currently on 20 mg of prednisone. I will reduce this to 10 mg tomorrow morning. He is also on Levaquin today is day 5. He will continue DuoNeb and Pulmicort nebulization. He is on DVT and GI prophylaxis. (2) Pneumothorax: The patient had developed large left-sided pneumothorax with mild radiographic evidence of tension. He however did not have any significant tachycardia or hypotension. Given the worsening in the chest x-ray between postprocedure and 1 hour following that, the decision was made to insert a pigtail catheter. Following placement of the pigtail catheter, there was better aeration of the left lung. The patient continues to have grade 2 airleak. This is likely somewhat better than couple of days ago. However, the airleak is still significant to cause rapid worsening of subcutaneous emphysema anytime the chest tube was clamped in the past. Today is day 4 following the procedure. I think in the light of improving air leak, it would be reasonable to wait till Friday and see if this resolves. If not, I will likely have to remove the endobronchial valve from the lingula. I have discussed this with the patient and his . For the next 24 hours, we will continue with the suction. I have asked the patient to sit in a chair and do his exercise in the chair. (3) Chronic respiratory failure with hypoxia: The patient has exertional hypoxemia and nocturnal hypoxemia. He generally uses 2 L of oxygen with exertion. The patient is on 2 L oxygen now saturating in the mid 90s. He had mild desaturation to 88% while ambulating yesterday. (4) Diabetes mellitus: The patient has diabetes mellitus with an A1c of 7.2 in June 2021. He had developed hyperglycemia with the steroid that he had been getting. Were going to start the patient on low-dose insulin sliding scale. (5) Seronegative rheumatoid arthritis of both hands: The patient is on Plaquenil and methotrexate for seronegative rheumatoid arthritis. For now we will continue the steroid. Attestations Medical Necessity Statement*: Unfortunately, the patient has a persistent air leak and needs to be in the ICU for greater than 48 hours. Coding Level of Care Code Acute Landscaping And Groundskeeping Laborer for Iris Carranza Diagnoses Stage 4 very severe COPD by GOLD classification J44.9 Pneumothorax J93.9 Chronic respiratory failure with hypoxia J96.11 Diabetes mellitus E11.9 Seronegative rheumatoid arthritis of both hands M06.041; M06.042
[2022-04-06] MEDS: levofloxacin-dextrose 5 % 750 MG/150 ML PREMIX 100 MG IV (09:18)
[2022-04-06] MEDS: famotidine 20 mg Tablet PO ×2 (09:18→17:36)
[2022-04-06] MEDS: enoxaparin 40 mg/0.4 mL Syringe SUBCUT (09:18)
[2022-04-06] MEDS: predniSONE 20 mg Tablet PO (09:18)
--- NOTE | 2022-04-06 12:02 | PC.SOCIAL ---
IMM update Imm page 2 updated with patient at bedside. Copy of page 2 provided. Patient verbalized understanding. Copy in chart initialed, dated and timed.
[2022-04-06] MEDS: insulin lispro 100 unit/1 mL SUBCUT (12:46)
[2022-04-06 19:10] LABS: Glucose Point of Care 141 mg/dL (70-110)
[2022-04-06] MEDS: morphine 4 mg/mL SDV 1 mL 2 MG IVP (20:00)
[2022-04-07] VITALS (32 sets, daily range): BP systolic 102–131; BP diastolic 55–85; PULSE 76–119; RESP 9–31; TEMP 36.4–36.7; O2SAT 87–97; BMI 27.2
[2022-04-07 02:04] LABS: Glucose Point of Care 134 mg/dL (70-110)
[2022-04-07] MEDS: ipratropium-albuterol 3 mL Neb INHALATION ×4 (03:20→20:19)
--- NOTE | 2022-04-07 06:00 | XRR_ITS ---
PROCEDURE INFORMATION: Exam: XR Chest Exam date and time: 04/07/2022 5:30 AM Age: 61 years old Clinical indication: Other: Follow up daily chest tube; Prior surgery; Surgery date: 3-7 days post-operative TECHNIQUE: Imaging protocol: Radiologic exam of the chest. Views: 1 view. COMPARISON: CR (CHEST, ) 04/06/2022 5:39 AM FINDINGS: Tubes, catheters and devices: Stable positioning of left pleural catheter. Lungs: Stable COPD, interstitial prominence, and asymmetric left sided airspace disease. Pleural spaces: Stable left pneumothorax . Heart/Mediastinum: Postoperative change overlying the left hilum. New [place] no cardiomegaly. Bones/joints: Unremarkable. Soft tissues: Residual subcutaneous emphysema. When correlating with the previous study, no significant interval changes are present. XR/XR chest 1V portable [id number] IMPRESSION: 1. Stable COPD, interstitial prominence, and asymmetric left sided airspace disease. 2. Stable left pneumothorax .
[2022-04-07 07:35] LABS: Glucose Point of Care 107 mg/dL (70-110)
[2022-04-07] MEDS: levofloxacin-dextrose 5 % 750 MG/150 ML PREMIX 100 MG IV (07:56)
[2022-04-07] MEDS: enoxaparin 40 mg/0.4 mL Syringe SUBCUT (07:57)
[2022-04-07] MEDS: predniSONE 20 mg Tablet PO (07:57)
[2022-04-07] MEDS: famotidine 20 mg Tablet PO ×2 (07:57→17:04)
[2022-04-07] MEDS: budesonide 0.5 mg/2 mL Neb INHALATION ×2 (08:37→20:19)
[2022-04-07 12:20] LABS: Glucose Point of Care 137 mg/dL (70-110)
--- NOTE | 2022-04-07 13:02 | P.PN_ITS ---
Subjective Subjective: The patient was seen and examined. He had an uneventful night. The patient remained stable. His subcutaneous emphysema including facial swelling has improved. Chest x-ray this morning revealed stable pneumothorax in the left apical area. According to my read, the pneumothorax looks better than yesterday's. The patient still has air leak. However, with normal breathing the patient does not seem to have consistent air leak on expiration however with his speech or forced expiration, the patient still has air leak. This is likely better than before but still there. His blood sugar has been stable. No other problems. Medications: Reviewed: Yes Vitals/I&O/Wt Last Vital Signs Temp 97.6 F 04/07/22 07:53 Pulse 97 04/07/22 12:00 Resp 19 H 04/07/22 12:00 BP 108/55 04/07/22 12:00 Pulse Ox 94 04/07/22 12:00 O2 Del Method 04/07/22 08:38 O2 Flow Rate 2 04/07/22 08:38 FiO2 32 04/03/22 08:00 04/06/22 04/07/22 04/07/22 22:59 06:59 14:59 Intake Total 222 / 594 390 / 390 Output Total 1010 / 1250 620 / 1870 150 / 150 Balance -788 / -656 -620 / -1276 240 / 240 Weight last 48 hrs Weight 195 lb 3.2 oz Weight 196 lb 6.4 oz Physical Exam Narrative: General: Patient is awake alert and oriented. Subcutaneous area around the eyes and chest wall better than yesterday Neck: No JVD Respiratory: Inspection: Barrel-shaped chest, left-sided anterior chest tube in place Palpation: Trachea is midline, reduced chest expansion on the left compared to the right Percussion: Hypertympanic on the left compared to the right Auscultation: Reduced breath sound bilaterally, more reduced on the left compared to the right, no rhonchi on the right side, no rhonchus on the left side, audible movement of air through the chest tube Cardiovascular: Regular rate and rhythm, S1-S2 present, distant breath sound, no murmur, no peripheral edema Abdomen: Soft, nontender, nondistended, positive bowel sound Musculoskeletal: No obvious joint deformity Skin: No rash Lymphatic: The axillary and inguinal lymph node groups are not examined Neuro: Mental status is normal, no gross cranial nerve deficit, grossly normal motor function Data : 04/06/22 04:31 04/06/22 04:31 Other data: I have reviewed the patient's laboratory, microbiologic and radiologic data A&P Assessment and plan (1) Stage 4 very severe COPD by GOLD classification: The patient has gold class B COPD.? His pulmonary function test is consistent with very severe airflow obstruction with air trapping. There is no evidence of chronic hypercapnic respiratory failure on the blood gas analysis. He has significant emphysema.? He recently underwent a CT scan for evaluation of lung volume reduction candidacy.? The left upper lobe is a potential targe. The patient walked 530 feet with a 6-minute walk test with desaturation. The perfusion scan revealed 36% overall perfusion to the left lung with less than 5% perfusion in the left upper lung zone. The patient underwent bronchoscopic lung volume reduction procedure on 04/02. Four 9 mm endobronchial valves were deployed in the left upper lobe and lingula. Postprocedure the patient had developed pneumothorax which required chest tube placement. The patient is currently on 20 mg of prednisone. He is going to be on 10 mg of prednisone from tomorrow morning. The patient has received Levaquin for a total of 7 days including 1 day at home prior to his procedure. He will continue DuoNeb and Pulmicort nebulization. He is on DVT and GI prophylaxis. (2) Pneumothorax: The patient had developed large left-sided pneumothorax with mild radiographic evidence of tension. He however did not have any significant tachycardia or h ypotension. Given the worsening in the chest x-ray between postprocedure and 1 hour following that, the decision was made to insert a pigtail catheter. Following placement of the pigtail catheter, there has been better aeration of the left lung. The patient continues to have grade 2 airleak. This is better than couple of days ago. However, the airleak is still significant to cause rapid worsening of subcutaneous emphysema anytime the chest tube was clamped in the past. Today is day 5 following the procedure. I think in the light of improving air leak, it would be reasonable to wait till Friday and see if this resolves. Even if we can manage the chest tube with only waterseal without any suction, the patient may be able to go home on Heimlich valve. However if this is not possible, the patient is likely going to need endobronchial valve removal on Friday. Will continue with suction today as well. The patient is okay to sit in the chair and exercise. Tomorrow morning, we are going to obtain an x-ray while on suction. After that, we will turn the suction off and repeat a chest x-ray in about 6 to 8 hours to see if the waterseal drainage is okay. (3) Chronic respiratory failure with hypoxia: The patient has exertional hypoxemia and nocturnal hypoxemia. He generally uses 2 L of oxygen with exertion. The patient is on 2 L oxygen now saturating in the mid 90s. (4) Diabetes mellitus: The patient has diabetes mellitus with an A1c of 7.2 in June 2021. He had developed hyperglycemia with the steroid that he had been getting. He was started on sliding scale however he has not required any insulin. This is likely due to the fact that the dose of steroid was reduced. If no insulin requirement overnight, I will discontinue this tomorrow. (5) Seronegative rheumatoid arthritis of both hands: The patient is on Plaquenil and methotrexate for seronegative rheumatoid arthritis. For now we will continue the steroid. Attestations Medical Necessity Statement*: Patient is likely to spend more than 48 hours in the ICU due to persistent air leak, left-sided pneumothorax after endobronchial valve placement. Coding Level of Care Code Acute Industrial Safety And Health Manager for Iris Carranza Diagnoses Stage 4 very severe COPD by GOLD classification J44.9 Pneumothorax J93.9 Chronic respiratory failure with hypoxia J96.11 Diabetes mellitus E11.9 Seronegative rheumatoid arthritis of both hands M06.041; M06.042
[2022-04-07 16:57] LABS: Glucose Point of Care 124 mg/dL (70-110)
--- NOTE | 2022-04-07 18:27 | PC.NURSE ---
No acute changes noted this shift, leak still present on chest tube. Dr. Branch aware. Plans to get chest xray in the morning, clamp tube and see how lung responds, possible surgery to remove valve on Friday if pneumo still present.
[2022-04-07 20:08] LABS: Glucose Point of Care 200 mg/dL (70-110)
[2022-04-07 21:14] LABS: Glucose Point of Care 149 mg/dL (70-110)
[2022-04-07] MEDS: insulin lispro 100 unit/1 mL SUBCUT (21:14)
[2022-04-07] MEDS: benzonatate 100 mg Capsule PO (21:59)
[2022-04-08] VITALS (28 sets, daily range): BP systolic 97–127; BP diastolic 60–92; PULSE 73–106; RESP 14–28; TEMP 36.7–37.1; O2SAT 90–96
[2022-04-08] MEDS: ipratropium-albuterol 3 mL Neb INHALATION ×4 (02:41→20:01)
--- NOTE | 2022-04-08 06:11 | XRR_ITS ---
PROCEDURE INFORMATION: Exam: XR Chest Exam date and time: 04/08/2022 6:29 AM Age: 61 years old Clinical indication: Device placement; Chest tube TECHNIQUE: Imaging protocol: Radiologic exam of the chest. Views: 1 view. COMPARISON: 1. CR (CHEST, ) 04/07/2022 5:30 AM 2. CR (CHEST, ) 04/06/2022 5:39 AM FINDINGS: Tubes, catheters and devices: Left thoracostomy tube place unchanged in position. Left hilar radiopaque endobronchial valve devices in place. Lungs: Residual left lung atelectasis and volume loss. Hyperinflated right lung consistent with emphysema. Pleural spaces: Interval improvement of left pneumothorax with residual left apical pneumothorax. No costophrenic angle blunting. Heart/Mediastinum: Heart size is normal. Bones/joints: No acute osseous abnormality. Soft tissues: Bilateral subcutaneous emphysema left greater than right. XR/XR chest 1V portable [id number] IMPRESSION: 1. Left thoracostomy tube place unchanged in position. 2. Interval improvement of left pneumothorax with residual left apical pneumothorax. Pneumothorax assessment is limited by overlying subcutaneous emphysema. 3. Left hilar radiopaque endobronchial valve devices in place. 4. Hyperinflated right lung consistent with emphysema. 5. Bilateral subcutaneous emphysema left greater than right.
[2022-04-08 07:41] LABS: Glucose Point of Care 114 mg/dL (70-110)
[2022-04-08] MEDS: predniSONE 10 mg Tablet PO (08:24)
[2022-04-08] MEDS: famotidine 20 mg Tablet PO ×2 (08:24→17:11)
[2022-04-08] MEDS: enoxaparin 40 mg/0.4 mL Syringe SUBCUT (08:24)
[2022-04-08] MEDS: budesonide 0.5 mg/2 mL Neb INHALATION ×2 (08:46→20:01)
--- NOTE | 2022-04-08 09:00 | PM.PN ---
Subjective Subjective: The patient was seen and examined this morning. The chest x-ray this morning revealed small amount of left apical pneumothorax. The x-ray today is better than before. Unfortunately, the patient continues to have air leak. He also complained of some fatigue. Hemodynamically stable. Blood sugar has been stable. The patient did not require any insulin. Medications: Reviewed: Yes Vitals/I&O/Wt Last Vital Signs Temp 98.7 F 04/08/22 06:00 Pulse 85 04/08/22 08:48 Resp 16 04/08/22 08:48 BP 120/70 04/08/22 07:00 Pulse Ox 94 04/08/22 08:48 O2 Del Method 04/08/22 08:48 O2 Flow Rate 2 04/08/22 08:48 FiO2 32 04/03/22 08:00 04/07/22 04/08/22 04/08/22 22:59 06:59 14:59 Intake Total 200 / 950 360 / 360 Output Total 1100 / 1250 635 / 1885 Balance -1100 / -500 -435 / -935 360 / 360 Weight last 48 hrs Weight 195 lb 3.2 oz Physical Exam Narrative: General: Patient is awake alert and oriented. Mild subcutaneous emphysema Respiratory: Inspection: Barrel-shaped chest, left-sided anterior chest tube in place Palpation: Trachea is midline, reduced chest expansion on the left compared to the right Percussion: Hypertympanic on the left compared to the right Auscultation: Reduced breath sound bilaterally, more reduced on the left compared to the right, no rhonchi on the right side, no rhonchus on the left side, audible movement of air through the chest tube Cardiovascular: Regular rate and rhythm, S1-S2 present, distant breath sound, no murmur, no peripheral edema Abdomen: Soft, nontender, nondistended, positive bowel sound Musculoskeletal: No obvious joint deformity Skin: No rash Lymphatic: The axillary and inguinal lymph node groups are not examined Neuro: Mental status is normal, no gross cranial nerve deficit, grossly normal motor function Data : 04/06/22 04:31 04/06/22 04:31 A&P Assessment and plan (1) Stage 4 very severe COPD by GOLD classification: The patient has gold class B COPD.? His pulmonary function test is consistent with very severe airflow obstruction with air trapping. There is no evidence of chronic hypercapnic respiratory failure on the blood gas analysis. He has significant emphysema.? He recently underwent a CT scan for evaluation of lung volume reduction candidacy.? The left upper lobe is a potential targe. The patient walked 530 feet with a 6-minute walk test with desaturation. The perfusion scan revealed 36% overall perfusion to the left lung with less than 5% perfusion in the left upper lung zone. The patient underwent bronchoscopic lung volume reduction procedure on 04/02. Four 9 mm endobronchial valves were deployed in the left upper lobe and lingula. Postprocedure the patient had developed pneumothorax which required chest tube placement. The patient is currently on 10 mg of prednisone. The patient has received Levaquin for a total of 7 days including 1 day at home prior to his procedure. This was stopped on 04/07 He will continue DuoNeb and Pulmicort nebulization. He is on DVT and GI prophylaxis. (2) Pneumothorax: The patient had developed large left-sided pneumothorax with mild radiographic evidence of tension. He however did not have any significant tachycardia or hypotension. Given the worsening in the chest x-ray between postprocedure and 1 hour following that, the decision was made to insert a pigtail catheter. Following placement of the pigtail catheter, there has been better aeration of the left lung. His chest x-ray this morning revealed small left apical pneumothorax. However the airleak is there. I have turned off the suction at 8:30 AM and we will repeat a chest x-ray at 1230. If there is worsening subcutaneous emphysema outside of pneumothorax, I will remove one of the valves tomorrow. I have discussed this with the patient in detail. (3) Chronic respiratory failure with hypoxia: The patient has exertional hypoxemia and nocturnal hypoxemia. He generally uses 2 L of oxygen with exertion. The patient is on 2 L oxygen now saturating in the mid 90s. (4) Diabetes mellitus: The patient has diabetes mellitus with an A1c of 7.2 in June 2021. He had developed hyperglycemia with the steroid that he had been getting. No hyperglycemia episodes in the past 2 days. Have discontinued the sliding scale coverage. (5) Seronegative rheumatoid arthritis of both hands: The patient is complaining of mild fatigue. I am starting the Plaquenil today. Attestations Medical Necessity Statement*: The patient is likely to stay more than 48 hours in the ICU as he has persistent air leak.. Coding Level of Care Code Acute Chief Juvenile Probation Officer for Chg Fwd Diagnoses Stage 4 very severe COPD by GOLD classification J44.9 Pneumothorax J93.9 Chronic respiratory failure with hypoxia J96.11 Diabetes mellitus E11.9 Seronegative rheumatoid arthritis of both hands M06.041; M06.042
[2022-04-08] MEDS: hydroxychloroquine 200 mg Tablet PO ×2 (09:31→20:43)
--- NOTE | 2022-04-08 12:30 | XRR_ITS ---
PROCEDURE INFORMATION: Exam: XR Chest Exam date and time: 04/08/2022 12:23 PM Age: 61 years old Clinical indication: Shortness of breath; Additional info: Checking for pneumo TECHNIQUE: Imaging protocol: Radiologic exam of the chest. Views: 1 view. COMPARISON: CR XR chest 1V portable [id number] 04/08/2022 6:29 AM FINDINGS: Lungs: Unremarkable. No consolidation. Pleural spaces: Unremarkable. No pleural effusion. There has been increased size of the left lung pneumothorax. . There does not appear to be a pressure component associated. Heart/Mediastinum: Unremarkable. No cardiomegaly. Bones/joints: Unremarkable. NG tube extending into the medial left lung in the area of the left hilum. There is subcutaneous emphysema seen in the bilateral the chest voss and in the anterior aspect of the right and left upper chest. These findings were present on prior examination XR/XR chest 1V portable [id number] IMPRESSION: 1. Large left lung pneumothorax increased size since prior. 2. There is a left-side chest tube in place as described. 3. Extensive subcutaneous emphysema as described.
--- NOTE | 2022-04-08 12:51 | PC.CHAP ---
Pastoral Care Encounter/Spiritual Assessment Type of Contact [] Declined welding machine operator ultrasonic visit [] Patient/Family/Request visit [] Outpatient visit [] Follow-up visit [] Physician referral [] Code/Alert [x] Routine visit [] Staff referral [] Actively dying [] Patient sleeping [] Family support [] [] Out of room [] Palliative care [] [x] Receiving care in room [] Pre-surgical visit [] Trauma [] Long length of stay [x] ICU visit [] Other: Relational/Emotional Strength [] Patient feels connected with others/family/visitors/staff [] Distress [] Loneliness/isolation [] Abandonment Spirituality of Patient [] Person of Nan [] Attends Protestant of their Nan [] Believes in Prayer [] Reads Bible or Scientologist materials [] There are Spiritual issues to be addressed Materials Technician Interventions [x] Prayer [] Active listening [] Non-anxious presence [] Spiritual/emotional support [] Crisis/trauma care [] Spiritual counseling [] Bereavement support [] Provided bereavement packet [] Provided Bible/devotional materials [] Provided toy/stuffed animal, coloring book to patient or family member [] Provided Communion [] Anointing/[place] [] Salvation [x] Completed spiritual assessment [] Other: Impact on Illness or Injury [] Angry [] Fearful [] Anxious [] Often cries [] Exhaustion [] Unable to work [] Unable to attend cheondoism [] Unable to walk/stand [] Unable to read [] Unable to drive [] Unable to eat/drink [] Unable to sleep [] Unable to be with family [] Patient intubated [] Other: Summary Time spent with patient
[2022-04-09] VITALS (37 sets, daily range): BP systolic 87–137; BP diastolic 57–88; PULSE 75–109; RESP 12–22; TEMP 36.6–36.8; O2SAT 90–98
[2022-04-09] MEDS: ipratropium-albuterol 3 mL Neb INHALATION ×4 (03:08→20:16)
--- NOTE | 2022-04-09 06:57 | ANES.PREANE2 ---
Pre-Anesthetic Assessment Height/Weight: Height 1.8 m Weight 88.541 kg Temp Pulse Resp BP Pulse Ox O2 Del Method O2 Flow Rate 97.9 F 86 20 H 131/88 96 2 04/09/22 05:00 04/09/22 06:40 04/09/22 06:40 04/09/22 06:40 04/09/22 06:40 04/09/22 06:40 04/09/22 06:40 FiO2 32 04/03/22 08:00 Preop Diagnosis: Severe emphysema, COPD Operation Date: 04/02/22 07:00 Proposed Procedures p Bronchoscopy(Not Applicable) - Ibis Branch MD s Endobronchial Valve Placement(Not Applicable) - Ibis Branch MD Operation Date: 04/09/22 07:00 Proposed Procedures p Endobronchial Valve Removal(Not Applicable) - Ibis Branch MD Familial anesthetic complications: none Was Beta Constantino taken within 24 hours: N/A Was Clonidine taken within 24 hours: N/A Last intake: Intake Last Liquid Date 04/01/22 Last Liquid Time 23:45 Last Solid Date 04/01/22 Last Solid Time 18:30 Last Intake: 23:45 Social Tobacco (stop 1 yr ago) 3ppd pack(s) per day 40+ pack years stop 1 yr ago Exam alert, oriented x 3, clear to auscultation bilaterally (exp rhonchi with dec left upper lobe) and regular rate & rhythm Airway Submandibular: within normal limits Cervical ROM: within normal limits Mallampati: Class I Dentition: full Pulmonary Chronic Obstructive Pulmonary Disease (o2 at night), Exertional Dyspnea and Shortness of Breath Pt with left upper [neumo. Pt with CT to suction CV/HEM Arrythmia (pt states sometimes has irreg HB.) None reported Hepatic None reported GI Gastroesophageal Reflux Disease Metabolic Diabetes Mellitus (diet controlled) Musc/skel Lower Back Pain, Osteoarthritis/DJD and Rheumatoid Arthritis Neuropsych None reported Anesthetic Plan ASA status: 3 Medications/Allergies Home Medications Medication Instructions Recorded Confirmed Last Taken Type fluticasone 500 mcg-salmeterol 50 1 inh inhalation BID 90 days #180 11/20/21 04/02/22 04/02/22 Rx mcg/dose blistr powdr for ea inhalation (Advair Diskus) folic acid 1 mg tablet 1 mg PO DAILY #90 tabs 01/29/22 03/29/22 04/01/22 Rx hydroxychloroquine 200 mg tablet 200 mg PO BID #180 tabs 01/29/22 03/29/22 04/01/22 Rx (Plaquenil) methotrexate sodium 2.5 mg tablet See Rx Instructions .Route 01/29/22 04/02/22 03/21/22 Rx .COMPLEX #90 tabs ipratropium 0.5 mg-albuterol 3 mg 3 ml inhalation QID PRN wheezing 02/08/22 03/29/22 04/01/22 Rx (2.5 mg base)/3 mL nebulization 30 days #320 mL soln albuterol sulfate 90 mcg/actuation 2 puff inhalation Q6H PRN 02/27/22 03/29/22 04/01/22 Rx aerosol inhaler (ProAir HFA) shortness of breath or wheezing #8 grams levofloxacin 750 mg tablet 750 mg PO DAILY 5 days #5 tabs 03/29/22 03/29/22 04/01/22 Rx pantoprazole 40 mg tablet,delayed 40 mg PO DAILY 03/29/22 03/29/22 04/01/22 History release (Protonix) prednisone 20 mg tablet 40 mg PO DAILY 5 days #10 tabs 03/29/22 03/29/22 04/01/22 Rx cholecalciferol (vitamin D3) 50 50 mcg PO DAILY 04/02/22 04/02/22 04/01/22 History mcg (2,000 unit) capsule fluticasone propionate 50 1 spray intranasal BID PRN Allergy 04/02/22 04/02/22 04/01/22 History mcg/actuation nasal Symptoms spray,suspension tiotropium bromide 18 mcg capsule 1 cap inhalation DAILY 04/02/22 04/02/22 04/01/22 History with inhalation device (Spiriva with HandiHaler) Allergies Allergy/AdvReac Type Severity Reaction Status Date / Time Iodinated Contrast Media Allergy ALGY-Hives Verified 03/29/22 13:13 tofacitinib [From Xeljanz] AdvReac Intermediate foggy, Verified 03/29/22 13:[address] Current Medications Generic Name Dose Route Start Last Admin Trade Name Freq PRN Reason Stop Dose Admin Albuterol/Ipratropium 3 ml 04/02/22 09:00 04/09/22 03:08 Ipratropium-Albuterol 3 Ml Neb INHALATION 3 ml Q6H.RESP MARIA ANTONIA Administration Benzonatate 100 mg 04/04/22 13:35 04/07/22 21:59 Benzonatate 100 Mg Capsule PO 100 mg TID PRN Administration COUGH Budesonide 0.5 mg 04/02/22 20:00 04/08/22 20:01 Budesonide 0.5 Mg/2 Ml Neb INHALATION 0.5 mg BID.RESPIRATORY MARIA ANTONIA Administration Docusate Sodium 100 mg 04/05/22 09:57 04/05/22 10:26 Docusate Sodium 100 Mg Capsule PO 100 mg BID PRN Administration CONSTIPATION Enoxaparin Sodium 40 mg 04/02/22 09:00 04/08/22 08:24 Enoxaparin 40 Mg/0.4 Ml Syringe SUBCUT 40 mg Q24H MARIA ANTONIA Administration Famotidine 20 mg 04/02/22 09:07 04/08/22 17:11 Famotidine 20 Mg Tablet PO 20 mg BID MARIA ANTONIA Administration Hydroxychloroquine Sulfate 200 mg 04/08/22 09:00 04/08/22 20:43 Hydroxychloroquine 200 Mg Tablet PO 200 mg Q12H MARIA ANTONIA Administration Morphine Sulfate 2 mg 04/02/22 09:20 04/06/22 20:00 Morphine 4 Mg/Ml Sdv 1 Ml IVP 2 mg Q4H PRN Administration SEVERE PAIN Prednisone 10 mg 04/08/22 09:00 04/08/22 08:24 Prednisone 10 Mg Tablet PO 10 mg DAILY MARIA ANTONIA Administration Saliva Substitute 1 spray 04/08/22 08:25 04/08/22 09:02 Saliva Stimulant Elrama 44 Ml Btl MUCOUS MEM 1 applic PRN PRN Administration DRYNESS PFSH Anesthesia Medical History Chronic fatigue disorder Chronic gastritis COPD (chronic obstructive pulmonary disease) Elevated C-reactive protein (CRP) Gouty arthropathy High risk medication use HME (human monocytic ehrlichiosis) Immunization counseling Joint pain Seronegative rheumatoid arthritis of both hands Surgical History History of carpal tunnel surgery History of inguinal hernia repair History of knee surgery History of rotator cuff surgery History of vasectomy Family History Other CAD (coronary artery disease) Diabetes Family history of premature coronary artery disease Heart disease Lung disease Social History Smoking and tobacco status: former smoker Quit status (tobacco): has quit using tobacco Year quit tobacco: 2020 Former quit date comment: 1ppd X 45 years Alcohol intake: never Marital status: Current occupational status: employed 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
[2022-04-09] MEDS: sodium chloride 0.9% 1,000 ML 30 ML IV (07:12)
[2022-04-09] MEDS: lidocaine 1% INJ 20 mL MDV (mL) XX (07:24)
--- NOTE | 2022-04-09 07:43 | PM.OP ---
Operative Report Date of procedure: April 09, 2022 Pre-op diagnosis: Preop Diagnosis Severe emphysema, COPD Preop Diagnosis Severe emphysema, COPD Post-op diagnosis: Left-sided pneumothorax with persistent air leak following bronchoscopic lung volume reduction. Brief History: This is a 61-year-old gentleman who underwent bronchoscopic lung volume reduction with aspiration valve. The patient has developed persistent airleak with large left-sided pneumothorax requiring suction. He was brought to the OR today for removal of the endobronchial valve from the lingular segment. Procedure: Name of the procedure: Bronchoscopy with inspection of the airway, removal of the endobronchial valve from the lingular segment and control of bleeding. Indication: Pneumothorax and persistent air leak following bronchoscopic lung volume reduction. Anesthesia: General anesthesia Local anesthesia: The vocal cords, trachea, cayetano and right and left mainstem bronchi were anesthetized with 1% lidocaine. Description of the procedure: The procedure was explained to the patient and the consent was obtained. The patient was brought to the OR. The patient underwent laryngeal mask airway placement for general anesthesia. Following induction of general anesthesia, the bronchoscope was advanced through the LMA. The vocal cords are normal. The vocal cords anesthetized with 1% lidocaine. 3 mL lidocaine was used. The lower trachea appeared to be mildly erythematous. The cayetano was sharp. The cayetano, the right and left mainstem bronchi are anesthetized with 1% lidocaine. In a systematic manner bilateral bronchial tree was then examined. The bronchoscope was introduced into the right mainstem bronchus. The right upper lobe, right middle lobe and right lower lobe bronchi were examined up to the third subsegmental level and no abnormalities were identified. The bronchoscope was then advanced into the left mainstem bronchus. The endobronchial valve occluding the apicoposterior, anterior and lingular segment of the left upper lobe appear to be in good position. No bleeding was noted. The left lower lobe segmental and subsegmental bronchi were normal. Using a forcep, the lingular segment endobronchial valve was removed without any difficulty. Complications: There was no immediate complications
--- NOTE | 2022-04-09 08:18 | XRR_ITS ---
PROCEDURE INFORMATION: Exam: XR Chest Exam date and time: 04/09/2022 8:29 AM Age: 61 years old Clinical indication: Device placement; Other: Post bronchoscopy TECHNIQUE: Imaging protocol: Radiologic exam of the chest. Views: 1 view. COMPARISON: CR XR chest 1V portable [id number] 04/08/2022 12:23 PM FINDINGS: Tubes, catheters and devices: Left-sided pleural drain is unchanged in position from prior. Endobronchial occlusion devices in the left hilum are noted. Lungs: Emphysematous lung disease. Left perihilar opacity is unchanged. Pleural spaces: Large left pneumothorax is suspected similar in volume to comparison. Heart/Mediastinum: Unremarkable. No cardiomegaly. Bones/joints: Unremarkable. Soft tissues: Chest wall soft tissue emphysema. XR/XR chest 1V portable [id number] IMPRESSION: No change in exam of the chest.
[2022-04-09] MEDS: famotidine 20 mg Tablet PO ×2 (09:06→18:09)
[2022-04-09] MEDS: enoxaparin 40 mg/0.4 mL Syringe SUBCUT (09:06)
[2022-04-09] MEDS: predniSONE 10 mg Tablet PO (09:06)
[2022-04-09] MEDS: hydroxychloroquine 200 mg Tablet PO ×2 (09:06→20:00)
[2022-04-09] MEDS: budesonide 0.5 mg/2 mL Neb INHALATION ×2 (09:20→20:16)
--- NOTE | 2022-04-09 11:46 | P.PN_ITS ---
Subjective Subjective: The patient was seen and examined in the ICU. This morning he underwent removal of the endobronchial valve from the lingular segment. The procedure was uneventful. The patient was off of suction for some time inadvertently after the procedure and quickly developed subcutaneous emphysema. A chest x-ray revealed stable left-sided pneumothorax compared to yesterday when the patient was off of suction. The patient is currently on suction. Without suction, the patient has intermittent air leak with expiration. Typically when the patient is talking or with forced expiratory maneuvers. The air leak is better than how it was before removal of the endobronchial valve. Otherwise the patient is stable. Medications: Reviewed: Yes Vitals/I&O/Wt Last Vital Signs Temp 97.9 F 04/09/22 05:00 Pulse 98 04/09/22 10:00 Resp 16 04/09/22 10:00 BP 104/76 04/09/22 10:00 Pulse Ox 94 04/09/22 10:00 O2 Del Method 04/09/22 09:21 O2 Flow Rate 2 04/09/22 09:21 FiO2 32 04/03/22 08:00 04/08/22 04/09/22 04/09/22 22:59 06:59 14:59 Intake Total 240 / 1080 200 / 200 Output Total 350 / 350 410 / 760 Balance -110 / 730 -410 / 320 200 / 200 Physical Exam Narrative: General: Patient is awake alert and oriented. Increased subcutaneous emphysema Respiratory: Inspection: Barrel-shaped chest, left-sided anterior chest tube in place Palpation: Trachea is midline, reduced chest expansion on the left compared to the right Percussion: Hypertympanic on the left compared to the right Auscultation: Reduced breath sound bilaterally, more reduced on the left compared to the right, no rhonchi on the right side, no rhonchus on the left side, audible movement of air through the chest tube Cardiovascular: Regular rate and rhythm, S1-S2 present, distant breath sound, no murmur, no peripheral edema Abdomen: Soft, nontender, nondistended, positive bowel sound Musculoskeletal: No obvious joint deformity Skin: No rash Lymphatic: The axillary and inguinal lymph node groups are not examined Neuro: Mental status is normal, no gross cranial nerve deficit, grossly normal motor function Data : 04/06/22 04:31 04/06/22 04:31 Other data: I have reviewed the patient's laboratory, microbiologic and radiologic data if available. A&P Assessment and plan (1) Stage 4 very severe COPD by GOLD classification: The patient has gold class B COPD.? His pulmonary function test is consistent with very severe airflow obstruction with air trapping. There is no evidence of chronic hypercapnic respiratory failure on the blood gas analysis. He has significant emphysema.? He recently underwent a CT scan for evaluation of lung volume reduction candidacy.? The left upper lobe is a potential targe. The patient walked 530 feet with a 6-minute walk test with desaturation. The perfusion scan revealed 36% overall perfusion to the left lung with less than 5% perfusion in the left upper lung zone. The patient underwent bronchoscopic lung volume reduction procedure on 04/02. Four 9 mm endobronchial valves were deployed in the left upper lobe and lingula. Postprocedure the patient had developed pneumothorax which required chest tube placement. The air leak persisted for 7 days despite some improvement. The endobronchial valve from the lingular segment was removed on 04/09. The patient is currently on 10 mg of prednisone which I will continue for another day. The patient has received Levaquin for a total of 7 days including 1 day at home prior to his procedure. This was stopped on 04/07 He will continue DuoNeb and Pulmicort nebulization. He is on DVT and GI prophylaxis. (2) Pneumothorax: The patient had developed large left-sided pneumothorax with mild radiographic evidence of tension. He however did not have any significant tachycardia or hypotension. Given the worsening in the chest x-ray between postprocedure and 1 hour following that, the decision was made to insert a pigtail catheter. Following placement of the pigtail catheter, there has been better aeration of the left lung. Unfortunately, the patient continued to have persistent air leak and worsening pneumothorax and or subcutaneous emphysema after removal of the suction. He underwent removal of the lingular segment endobronchial valve on 04/09. Postprocedure, the airleak is not consistent with every expiration. However airleak is consistently present with forced expiratory maneuvers and sometimes with speech. I am hoping over time the air leak will heal. If not, the patient may need removal of the remaining endobronchial valves. (3) Chronic respiratory failure with hypoxia: The patient has exertional hypoxemia and nocturnal hypoxemia. He generally uses 2 L of oxygen with exertion. The patient is on 2 L oxygen now saturating in the mid 90s. (4) Diabetes mellitus: The patient has diabetes mellitus with an A1c of 7.2 in June 2021. He had developed hyperglycemia with the steroid that he had been getting. Sliding scale coverage was discontinued as the patient was not hypoglycemic. When he is discharged, he is likely going to need outpatient therapy for diabetes. (5) Seronegative rheumatoid arthritis of both hands: The patient is on Plaquenil which was started on 04/08. Attestations Medical Necessity Statement*: The patient is likely to stay more than 48 hours in the ICU. He has persistent air leak, left-sided pneumothorax and is at risk for sudden deterioration. Coding Level of Care Code Acute Fryer Operator for lona Carranza Diagnoses Stage 4 very severe COPD by GOLD classification J44.9 Pneumothorax J93.9 Chronic respiratory failure with hypoxia J96.11 Diabetes mellitus E11.9 Seronegative rheumatoid arthritis of both hands M06.041; M06.042
--- NOTE | 2022-04-09 12:49 | ANE.PACU2 ---
Inpatient post-anesthesia follow up: Airway intact: Yes Vital signs: Temperature 97.9 F Pulse Rate [Curren t] 77 Pulse Rate 98 Respiratory Rate [ Current] 16 Respiratory Rate 16 Blood Pressure 104/76 Pulse Oximetry [Cu rrent] 94 Pulse Oximetry 94 Oxygen Delivery Me thod Nasal Cannula Oxygen Flow Rate [ Current] 30 Oxygen Flow Rate 2 Fraction of Inspir ed Oxygen [ 30 Current] Fraction of Inspir ed Oxygen 32 Hydration adequate: Yes Nausea and vomiting: No Pain level: 1 Mental status: Baseline
--- NOTE | 2022-04-09 18:00 | XRR_ITS ---
PROCEDURE INFORMATION: Exam: XR Chest Exam date and time: 04/09/2022 5:53 PM Age: 61 years old Clinical indication: Device placement; Chest tube; Prior surgery; Surgery date: <1 month; Surgery type: Lt lung; Additional info: Pneumothorax TECHNIQUE: Imaging protocol: Radiologic exam of the chest. Views: 1 view. COMPARISON: CR XR chest 1V portable [id number] 04/09/2022 8:29 AM FINDINGS: Lungs: Similar appearance of left perihilar opacity. Pleural spaces: Some interval improvement of the left-sided pneumothorax. Chest tube remains in place in similar positioning. Heart/Mediastinum: No cardiomegaly. Bones/joints: Unremarkable. Soft tissues: Similar appearance of subcutaneous emphysema along the left chest wall and lower cervical soft tissues. XR/XR chest 1V portable [id number] IMPRESSION: Improving left pneumothorax.
[2022-04-10] VITALS (30 sets, daily range): BP systolic 103–135; BP diastolic 60–82; PULSE 74–100; RESP 9–29; TEMP 36.5–37.1; O2SAT 90–98
--- NOTE | 2022-04-10 07:00 | XRR_ITS ---
PROCEDURE INFORMATION: Exam: XR Chest Exam date and time: 04/10/2022 7:07 AM Age: 61 years old Clinical indication: Condition or disease; Lung condition and disease; Pneumothorax TECHNIQUE: Imaging protocol: Radiologic exam of the chest. Views: 1 view. COMPARISON: CR (CHEST, ) 04/09/2022 5:53 PM FINDINGS: Lungs: pleuroparenchymal tenting and elevation of left hemidiaphragm. Pleural spaces: Persistent left pneumothorax similar. Heart/Mediastinum: Cardiomediastinal silhouette is similar. Volume loss of the left lung with left suprahilar upper lung atelectasis and consolidation. Bones/joints: Unremarkable. Soft tissues: Persistent extensive bilateral chest wall soft tissue emphysema greater on the left. XR/XR chest 1V portable [id number] IMPRESSION: Similar appearance of the chest with no interval change since 1 day previous.
[2022-04-10] MEDS: enoxaparin 40 mg/0.4 mL Syringe SUBCUT (08:03)
[2022-04-10] MEDS: famotidine 20 mg Tablet PO ×2 (08:03→17:23)
[2022-04-10] MEDS: hydroxychloroquine 200 mg Tablet PO ×2 (08:04→21:57)
[2022-04-10] MEDS: predniSONE 10 mg Tablet PO (08:04)
[2022-04-10] MEDS: ipratropium-albuterol 3 mL Neb INHALATION ×3 (09:13→20:23)
[2022-04-10] MEDS: budesonide 0.5 mg/2 mL Neb INHALATION ×2 (09:13→20:23)
--- NOTE | 2022-04-10 13:42 | PM.PN ---
Subjective Subjective: The patient was seen and examined. No overnight events. The chest tube is on suction with improvement in subcutaneous emphysema involving the face. Hemodynamically completely stable. The patient still has air leak with talking and forced expiratory maneuvers. Medications: Reviewed: Yes Vitals/I&O/Wt Last Vital Signs Temp 98.8 F 04/10/22 08:00 Pulse 94 04/10/22 12:00 Resp 20 H 04/10/22 11:00 BP 116/70 04/10/22 12:00 Pulse Ox 92 04/10/22 12:00 O2 Del Method 04/10/22 09:10 O2 Flow Rate 3 04/10/22 09:10 FiO2 32 04/03/22 08:00 04/09/22 04/10/22 04/10/22 22:59 06:59 14:59 Intake Total 554 / 954 500 / 1454 400 / 400 Output Total 330 / 730 430 / 1160 575 / 575 Balance 224 / 224 70 / 294 -175 / -175 Physical Exam Narrative: General: Patient is awake alert and oriented. Improved subcutaneous emphysema Respiratory: Inspection: Barrel-shaped chest, left-sided anterior chest tube in place Palpation: Trachea is midline, reduced chest expansion on the left compared to the right Percussion: Hypertympanic on the left compared to the right Auscultation: Reduced breath sound bilaterally, more reduced on the left compared to the right, no rhonchi on the right side, no rhonchus on the left side, audible movement of air through the chest tube Cardiovascular: Regular rate and rhythm, S1-S2 present, distant breath sound, no murmur, no peripheral edema Abdomen: Soft, nontender, nondistended, positive bowel sound Musculoskeletal: No obvious joint deformity Skin: No rash Lymphatic: The axillary and inguinal lymph node groups are not examined Neuro: Mental status is normal, no gross cranial nerve deficit, grossly normal motor function Data : 04/06/22 04:31 04/06/22 04:31 A&P Assessment and plan (1) Stage 4 very severe COPD by GOLD classification: The patient has gold class B COPD.? His pulmonary function test is consistent with very severe airflow obstruction with air trapping. There is no evidence of chronic hypercapnic respiratory failure on the blood gas analysis. He has significant emphysema.? He recently underwent a CT scan for evaluation of lung volume reduction candidacy.? The left upper lobe is a potential targe. The patient walked 530 feet with a 6-minute walk test with desaturation. The perfusion scan revealed 36% overall perfusion to the left lung with less than 5% perfusion in the left upper lung zone. The patient underwent bronchoscopic lung volume reduction procedure on 04/02. Four 9 mm endobronchial valves were deployed in the left upper lobe and lingula. Postprocedure the patient had developed pneumothorax which required chest tube placement. The air leak persisted for 7 days despite some improvement. The endobronchial valve from the lingular segment was removed on 04/09. The patient is currently on 10 mg of prednisone which will be discontinued from tomorrow. The patient has received Levaquin for a total of 7 days including 1 day at home prior to his procedure. This was stopped on 04/07 He will continue DuoNeb and Pulmicort nebulization. He is on DVT and GI prophylaxis. (2) Pneumothorax: The patient had developed large left-sided pneumothorax with mild radiographic evidence of tension. He however did not have any significant tachycardia or hypotension. Given the worsening in the chest x-ray between postprocedure and 1 hour following that, the decision was made to insert a pigtail catheter. Following placement of the pigtail catheter, there has been better aeration of the left lung. Unfortunately, the patient continued to have persistent air leak and worsening pneumothorax and or subcutaneous emphysema after removal of the suction. He underwent removal of the lingular segment endobronchial valve on 04/09. The patient has no airleak with tidal breathing however with speech and forced expiratory maneuver there is air leak. The patient will stay on suction overnight. We will repeat a chest x-ray tomorrow with suction and 2 hours after taking him off of suction. If there is worsening of the subcutaneous emphysema or the pneumothorax, we will remove the remaining valves either tomorrow or the day after. (3) Chronic respiratory failure with hypoxia: The patient has exertional hypoxemia and nocturnal hypoxemia. He generally uses 2 L of oxygen with exertion. The patient is on 2 L oxygen now saturating in the mid 90s. (4) Diabetes mellitus: The patient has diabetes mellitus with an A1c of 7.2 in June 2021. He had developed hyperglycemia with the steroid that he had been getting. Sliding scale coverage was discontinued as the patient was not hypoglycemic. When he is discharged, he is likely going to need outpatient therapy for diabetes. (5) Seronegative rheumatoid arthritis of both hands: The patient is on Plaquenil which was started on 04/08. Attestations Medical Necessity Statement*: The patient continues to have persistent air leak requiring ICU stay. 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
--- NOTE | 2022-04-10 23:29 | XRR_ITS ---
PROCEDURE INFORMATION: Exam: XR Chest Exam date and time: 04/10/2022 11:49 PM Age: 61 years old Clinical indication: Other: Pneumothorax; Prior surgery; Surgery type: Anterior thoracic vent tube. Patient HX: Sudden onset of abnormal sounds coming from chest tube water seal drain. ; Additional info: Change in chest tube sounds/position TECHNIQUE: Imaging protocol: Radiologic exam of the chest. Views: 1 view. COMPARISON: CR XR chest 1V portable [id number] 04/10/2022 7:07 AM FINDINGS: Tubes, catheters and devices: There has been interval change in position of the distal tip of the anterior thoracic chest tube. The tube tip has moved caudally to overlie the mid left lung hilum. Lungs: There has been some interval re-expansion of the upper lobe from the comparison examination. Pleural spaces: No pleural effusion or pneumothorax. Heart/Mediastinum: Normal in size. Bones/joints: No acute fracture is identified. Soft tissues: Mild interval decrease in soft tissue emphysema along the lateral chest voss and base of the neck. XR/XR chest 1V portable [id number] IMPRESSION: 1. Some interval caudal translation of the tip of the left anterior chest tube. 2. Interval improved re-expansion of the left upper lobe when compared to 04/10/2022 at 7:07 AM. 3. Mild decrease in soft tissue emphysema.
[2022-04-11] VITALS (30 sets, daily range): BP systolic 90–141; BP diastolic 62–98; PULSE 72–108; RESP 10–34; TEMP 36.6–36.8; O2SAT 89–98
--- NOTE | 2022-04-11 02:53 | PC.NURSE ---
Patient alerted Nurse of change in Chest Tube Device sound after repositioning in bed. Upon assessment, chest tube was still inserted and dressing intact, however the tube appeared to be positional in nature and was no longer tidaling unless pressure was held on the tube. Patient was did not experience any discomfort or shortness of breath. Temporary securement was applied and Dr. Branch notified. Order for stat Chest Xray was received and relayed to Dr. Branch. After confirmation of placement, dressing was changed to allow for better securement and positioning of the drain. Bandage was removed and tubing secured with visualization of the chest tube insertion site. Sterile field was established and site was cleansed with chlorhexadine. Petroleum gauze was packed along with 4x4 gauze and covered with tagaderm. Chest tube drain was attached to the clients chest to ensure fixed position. Drainage system tidaling regained as well as bubbling upon exhalation between 1-2.
--- NOTE | 2022-04-11 07:00 | XRR_ITS ---
PROCEDURE INFORMATION: Exam: XR Chest Exam date and time: 04/11/2022 7:00 AM Age: 61 years old Clinical indication: Condition or disease; Lung condition and disease; Pneumothorax; Other: Not specified; Prior surgery; Surgery type: Bronch, chest tube TECHNIQUE: Imaging protocol: Radiologic exam of the chest. Views: 1 view. COMPARISON: CR (CHEST, ) 04/10/2022 11:49 PM FINDINGS: Tubes, catheters and devices: The left chest tube may have been slightly advanced in the interval, now overlying the upper left hilum. Lungs: No CHF/pulmonary edema. Essentially stable mid left lung opacities. Pleural spaces: Previously seen left pneumothorax is essentially stable. No mediastinal shift. No definite pleural fluid. Heart/Mediastinum: Heart size is within normal limits. Bones/joints: No significant acute finding. Soft tissues: Continued subcutaneous gas bilaterally, similar to the prior exam. XR/XR chest 1V portable [id number] IMPRESSION: 1. Essentially stable size/appearance of left pneumothorax. 2. Other details/findings discussed above.
[2022-04-11] MEDS: famotidine 20 mg Tablet PO ×2 (08:32→17:55)
[2022-04-11] MEDS: hydroxychloroquine 200 mg Tablet PO ×2 (08:32→21:51)
--- NOTE | 2022-04-11 08:54 | P.PN_ITS ---
Subjective Subjective: The patient was seen and examined this morning. Overnight the patient did well. There was no hemodynamic instability. There was concern for dislodgment of the chest tube last night which was promptly fixed. A chest x- ray at that time revealed no worsening of the pneumothorax or subcu emphysema. The chest x-ray this morning on suction revealed stable apical pneumothorax. Subcutaneous emphysema was better. The patient was taken off of suction and were trying to see if waterseal drainage is adequate to maintain his air leak without any worsening of subcutaneous emphysema or pneumothorax. So far in the past hour and a half there has been no worsening. Medications: Reviewed: Yes Vitals/I&O/Wt Last Vital Signs Temp 98.3 F 04/11/22 06:00 Pulse 82 04/11/22 08:20 Resp 17 04/11/22 08:20 BP 119/70 04/11/22 06:00 Pulse Ox 93 04/11/22 08:20 O2 Del Method 04/11/22 08:20 O2 Flow Rate 2 04/11/22 08:20 FiO2 32 04/03/22 08:00 04/10/22 04/11/22 04/11/22 22:59 06:59 14:59 Intake Total 600 / 1000 Output Total 390 / 965 Balance 210 / 35 Physical Exam Narrative: General: Patient is awake alert and oriented. Improved subcutaneous emphysema in the chest and facial area Respiratory: Inspection: Barrel-shaped chest, left-sided anterior chest tube in place Palpation: Trachea is midline, reduced chest expansion on the left compared to the right Percussion: Hypertympanic on the left compared to the right Auscultation: Reduced breath sound bilaterally, more reduced on the left com pared to the right, no rhonchi on the right side, no rhonchus on the left side, audible air movement that used to be present before on the chest side was not present today Cardiovascular: Regular rate and rhythm, S1-S2 present, distant breath sound, no murmur, no peripheral edema Abdomen: Soft, nontender, nondistended, positive bowel sound Musculoskeletal: No obvious joint deformity Skin: No rash Lymphatic: The axillary and inguinal lymph node groups are not examined Neuro: Mental status is normal, no gross cranial nerve deficit, grossly normal motor function Data : 04/06/22 04:31 04/06/22 04:31 A&P Assessment and plan (1) Stage 4 very severe COPD by GOLD classification: The patient has gold class B COPD.? His pulmonary function test is consistent with very severe airflow obstruction with air trapping. There is no evidence of chronic hypercapnic respiratory failure on the blood gas analysis. He has significant emphysema.? He recently underwent a CT scan for evaluation of lung volume reduction candidacy.? The left upper lobe is a potential targe. The patient walked 530 feet with a 6-minute walk test with desaturation. The perfusion scan revealed 36% overall perfusion to the left lung with less than 5% perfusion in the left upper lung zone. The patient underwent bronchoscopic lung volume reduction procedure on 04/02. Four 9 mm endobronchial valves were deployed in the left upper lobe and lingula. Postprocedure the patient had developed pneumothorax which required chest tube placement. The air leak persisted for 7 days despite some improvement. The endobronchial valve from the lingular segment was removed on 04/09. The patient received steroid for prevention of acute exacerbation and was discontinued after 04/10 The patient has received Levaquin for a total of 7 days including 1 day at home prior to his procedure. This was stopped on 04/07 He will continue DuoNeb and Pulmicort nebulization. He is on DVT and GI prophylaxis. (2) Pneumothorax: The patient had developed large left-sided pneumothorax with mild radiographic evidence of tension. He however did not have any significant tachycardia or hypotension. Given the worsening in the chest x-ray between postprocedure and 1 hour following that, the decision was made to insert a pigtail catheter. Following placement of the pigtail catheter, there has been better aeration of the left lung. Unfortunately, the patient continued to have persistent air leak and worsening pneumothorax and or subcutaneous emphysema after removal of the suction. He underwent removal of the lingular segment endobronchial valve on 04/09. The patient has no airleak with tidal breathing however with speech and forced expiratory maneuver there is air leak. Over the past 24 hours the patient has been on suction. The patient has stable apical left-sided pneumothorax while on suction this morning. Now the patient is off of suction and we are going to repeat an x-ray in 4 hours. If there is worsening of the pneumothorax or development of subcutaneous emphysema, the plan is going to be removal of all remaining valves. If however, there is no worsening of the subcutaneous emphysema or the pneumothorax, we will continue to see if we can manage this air leak with waterseal drainage and in that case the patient may be candidate for Heimlich valve placement. There is a possibility that the patient may now have pressure dependent airleak and if that is the case clamping the chest tube should not cause worsening of his left apical pneumothorax or subcutaneous emphysema and in that case we should be able to remove the chest tube without any risk. (3) Chronic respiratory failure with hypoxia: The patient has exertional hypoxemia and nocturnal hypoxemia. He generally uses 2 L of oxygen with exertion. The patient is on 2 L oxygen now saturating in the mid s. (4) Diabetes mellitus: The patient has diabetes mellitus with an A1c of 7.2 in June 2021. He had developed hyperglycemia with the steroid that he had been getting. Sliding scale coverage was discontinued as the patient was not hypoglycemic. When he is discharged, he is likely going to need outpatient therapy for diabetes. (5) Seronegative rheumatoid arthritis of both hands: The patient is on Plaquenil which was started on 04/08. Attestations Medical Necessity Statement*: The patient is likely to spend another 2 days in the hospital. Coding Level of Care Code Acute Tensile Tester for [facility] Diagnoses Stage 4 very severe COPD by GOLD classification J44.9 Pneumothorax J93.9 Chronic respiratory failure with hypoxia J96.11 Diabetes mellitus E11.9 Seronegative rheumatoid arthritis of both hands M06.041; M06.042
--- NOTE | 2022-04-11 09:55 | PC.CHAP ---
Pastoral Care Encounter/Spiritual Assessment Type of Contact [] Declined mgmt consultant visit [] Patient/Family/Request visit [] Outpatient visit [] Follow-up visit [] Physician referral [] Code/Alert [x] Routine visit [] Staff referral [] Actively dying [] Patient sleeping [x] Family support [] [] Out of room [] Palliative care [] [] Receiving care in room [] Pre-surgical visit [] Trauma [] Long length of stay [x] ICU visit [x] Other: PT having procedure on heart today... praying it will resolved the issue... Relational/Emotional Strength [] Patient feels connected with others/family/visitors/staff [] Distress [] Loneliness/isolation [] Abandonment Spirituality of Patient [] Person of Nan [] Attends Gnosticist of their Nan [] Believes in Prayer [] Reads Bible or Latter Day materials [] There are Spiritual issues to be addressed Chemical Blender Interventions [x] Prayer [] Active listening [] Non-anxious presence [] Spiritual/emotional support [] Crisis/trauma care [] Spiritual counseling [] Bereavement support [] Provided bereavement packet [] Provided Bible/devotional materials [] Provided toy/stuffed animal, coloring book to patient or family member [] Provided Communion [] Anointing/[place] [] Salvation [x] Completed spiritual assessment [] Other: Impact on Illness or Injury [] Angry [] Fearful [] Anxious [] Often cries [] Exhaustion [] Unable to work [] Unable to attend congregation [] Unable to walk/stand [] Unable to read [] Unable to drive [] Unable to eat/drink [] Unable to sleep [] Unable to be with family [] Patient intubated [] Other: Summary Time spent with patient
--- NOTE | 2022-04-11 10:10 | PC.NURSE ---
[address] Branch on patient's status. 719 Reviewed patient's am x ray with Dr. Branch. 729 Orders to take patient's chest tube off suction. 734 Chest tube to water seal. 819 Clarified Lovenox order with Dr. Branch. Orders to hold am dose of Lovenox in preparation for possible valve removal procedure this afternoon.
--- NOTE | 2022-04-11 11:00 | XRR_ITS ---
PROCEDURE INFORMATION: Exam: XR Chest Exam date and time: 04/11/2022 11:02 AM Age: 61 years old Clinical indication: Condition or disease; Lung condition and disease; Pneumothorax; Other: Not specified TECHNIQUE: Imaging protocol: Radiologic exam of the chest. Views: 1 view. COMPARISON: CR XR chest 1V portable [id number] 04/11/2022 7:00 AM FINDINGS: Tubes, catheters and devices: There is a drainage catheter in the left chest. Lungs: Lungs are hyperinflated. Pleural spaces: There is a slightly enlarging left pneumothorax with extensive subcutaneous emphysema. No right pneumothorax. No pleural effusion. Heart/Mediastinum: Unremarkable. No cardiomegaly. Bones/joints: Unremarkable. XR/XR chest 1V portable [id number] IMPRESSION: Worsening left pneumothorax with a drainage catheter still in place.
--- NOTE | 2022-04-11 14:23 | P.ANESUD_ITS ---
Pre-Anesthetic Update Pre-Anesthetic Assessment: Date of Surgery/Procedure: 04/11/22 Preop Deonna gnosis: Severe emphysema, COPD Proposed Procedure: Operation Date: 04/02/22 07:00 Proposed Procedures p Bronchoscopy(Not Applicable) - Ibis Branch MD s Endobronchial Valve Placement(Not Applicable) - Ibis Branch MD Operation Date: 04/09/22 07:00 Proposed Procedures p Endobronchial Valve Removal(Not Applicable) - Ibis Branch MD Operation Date: 04/11/22 14:00 Proposed Procedures p Endobronchial Valve Removal(Not Applicable) - Ibis Branch MD Any changes to Pre-Anesthetic Assessment?: No Last Intake: Intake Last Liquid Date 04/01/22 Last Liquid Time 23:45 Last Solid Date 04/01/22 Last Solid Time 18:30 Labs Last 48hrs: > 8 hrs Vitals: Temperature 98.1 F 04/11/22 07:00 Temperature Source Axillary 04/11/22 07:00 Pulse Rate 81 04/11/22 12:00 Pulse Rhythm 04/10/22 20:00 Pulse Strength 3+ Normal 04/11/22 08:00 Respiratory Rate 17 04/11/22 12:00 Respiratory Effort Non-Labored 04/11/22 08:00 Respiratory Depth Normal 04/11/22 08:00 Respiratory Patter n 04/02/22 16:13 Blood Pressure 119/78 04/11/22 12:00 Blood Pressure Kesha n 91 04/11/22 12:00 Blood Pressure Pos ition Sitting 04/06/22 18:06 Pulse Oximetry 95 04/11/22 12:00 Oxygen Delivery Me thod 04/11/22 08:20 Oxygen Flow Rate 2 04/11/22 08:20 Fraction of Inspir ed Oxygen 32 04/03/22 08:00 Exam: Pre-Anes Outpt Exam: alert, oriented x 3, clear to auscultation bilaterally and regular rate & rhythm Cardiac Studies: No Data to Display
--- NOTE | 2022-04-11 15:23 | SUR.OPER ---
3 bronch valves removed
--- NOTE | 2022-04-11 15:46 | XR_ITS ---
WS: [id number] PORTABLE CHEST HISTORY: post bronchoscopy COMPARISON: 04/11/2022 11:04 AM. Extensive subcutaneous emphysema is reidentified. LEFT thoracotomy tube is noted. Increasing atelecta sis along the LEFT fissure. Small residual pneumothorax is noted on the LEFT. Better aeration towards the apex. The overlying subcutaneous air does limit evaluation for the pneumothorax extent. No right -sided pneumothorax. Minimal blunting of the LEFT costophrenic angle. Cardiac size: Normal. Mediastinum/Aorta: Mild atherosclerosis aorta. No osseous abnormality seen. XR/XR chest 1V portable [id number] IMPRESSION: 1. Large amount of subcutaneous emphysema, bilateral. 2. Small bore LEFT chest tube. 3. Left-sided pneumothorax has nearly completely resolved. 4. New atelectasis along the LEFT fissure.
--- NOTE | 2022-04-11 15:51 | PM.OP ---
Operative Report Date of procedure: April 11, 2022 Pre-op diagnosis: Preop Diagnosis Severe emphysema, COPD Preop Diagnosis Severe emphysema, COPD Preop Diagnosis Severe emphysema, COPD Post-op diagnosis: Pneumothorax with persistent air leak following bronchoscopic lung volume reduction Brief History: This is a 61-year-old gentleman who underwent bronchoscopic lung volume reduction on 04/02 with deployment of 4 spiration valve in the left upper lobe. Unfortunately, despite taking out the valve deployed in the lingular segment on 04/09 the patient continued to have persistent air leak requiring suction. Today there had been worsening of his pneumothorax once the suction was discontinued and the decision was made to remove all the valves. Procedure: Name of the procedure: Bronchoscopy with inspection of the airway, removal of the endobronchial valve from the apicoposterior end and control of bleeding. Indication: Pneumothorax and persistent air leak following bronchoscopic lung volume reduction despite removal of the lingular segment endobronchial valve. Anesthesia: General anesthesia Local anesthesia: The vocal cords, trachea, cayetano and right and left mainstem bronchi were anesthetized with 1% lidocaine. Description of the procedure: The procedure was explained to the patient and the consent was obtained.? The patient was brought to the OR.? The patient underwent laryngeal mask airway placement for general anesthesia.? Following induction of general anesthesia, the bronchoscope was advanced through the LMA.? The vocal cords were normal.? The vocal cords were anesthetized with 1% lidocaine.? 3 mL lidocaine was used.? The lower trachea appeared to be mildly erythematous.? The cayetano was sharp.? The cayetano, the right and left mainstem bronchi are anesthetized with 1% lidocaine.? In a systematic manner bilateral bronchial tree was then examined.? The bronchoscope was introduced into the right mainstem bronchus.? The right upper lobe, right middle lobe and right lower lobe bronchi were examined up to the third subsegmental level and no abnormalities were identified. The bronchoscope was then advanced into the left mainstem bronchus.? The endobronchial valve occluding the apicoposterior, and anterior segments of the left upper lobe appear to be in good position.? No bleeding was noted.? The left lower lobe segmental and subsegmental bronchi were normal.? Using a forcep, the apicoposterior and anterior segment endobronchial valves were removed. The valve from the apicoposterior segment and the anterior division of the anterior segment were removed without any difficulty. Removal of the second endobronchial valve in the anterior segment was challenging but eventually performed. Complications: There was no immediate complications
--- NOTE | 2022-04-11 21:00 | XRR_ITS ---
PROCEDURE INFORMATION: Exam: XR Chest Exam date and time: 04/11/2022 9:07 PM Age: 61 years old Clinical indication: Other: Tube placement; Prior surgery; Additional info: Chest tube displacement verification TECHNIQUE: Imaging protocol: Radiologic exam of the chest. Views: 1 view. COMPARISON: CR XR chest 1V portable [id number] 04/11/2022 4:05 PM FINDINGS: Tubes, catheters and devices: A thoracostomy tube is again seen in the left hemithorax with its tip in the left lateral hemithorax. Lungs: There are strandy and patchy opacities present left lung base appearing slightly more prominent today although there is resolution of the platelike atelectasis seen in the left mid hemithorax. Pleural spaces: There appears to be resolution of the left pneumothorax. Heart/Mediastinum: Unremarkable. No cardiomegaly. Bones/joints: Unremarkable. Soft tissues: There is stable subcutaneous emphysema seen along the left lateral chest wall and within the neck base posteriorly. To a lesser extent, some subcutaneous emphysema seen on the right lateral chest wall. This appears similar to that seen earlier today. XR/XR chest 1V portable [id number] IMPRESSION: 1. Stable left thoracostomy tube 2. There appears to be resolution of the left pneumothorax. 3. Stable bilateral subcutaneous emphysema. 4. Resolution of the platelike atelectasis in the left mid hemithorax with slightly increased atelectasis seen in the left lung base.
[2022-04-11] MEDS: morphine 4 mg/mL SDV 1 mL 2 MG IVP (21:34)
--- NOTE | 2022-04-11 22:19 | PC.NURSE ---
During this nurses chest tube assessment it was observed that there was a portion of the chest tube that was visible outside the insertion site to the 13cm marking. There were no reports that indicated this change in the patient's chart. Dr. Branch was notified @[address] Branch ordered Stat Chest Xray and came to the unit. @2139 the chest tube was removed with 2 RNs present. Site was dressed by the physician. Patient tolerated well with no change in Respiratory status. Order for repeat Xray in 1 hour was received and will relay results to physician.
[2022-04-11] MEDS: enoxaparin 40 mg/0.4 mL Syringe SUBCUT (22:29)
--- NOTE | 2022-04-11 22:40 | XRR_ITS ---
PROCEDURE INFORMATION: Exam: XR Chest Exam date and time: 04/11/2022 10:35 PM Age: 61 years old Clinical indication: Other: Removal of chest tube; Prior surgery; Additional info: Chest tube removal, lung examination 1hr post procedure. TECHNIQUE: Imaging protocol: Radiologic exam of the chest. Views: 1 view. COMPARISON: CR (CHEST, ) 04/11/2022 9:07 PM FINDINGS: Tubes, catheters and devices: There is interval removal of the left thoracostomy tube. Lungs: There is a slight improvement in the left basilar atelectasis. Pleural spaces: Unremarkable. No pleural effusion. No pneumothorax. Heart/Mediastinum: Unremarkable. No cardiomegaly. Bones/joints: Unremarkable. Soft tissues: Bilateral subcutaneous emphysema remains stable. XR/XR chest 1V portable [id number] IMPRESSION: 1. Removal of the left thoracostomy tube 2. Stable bilateral subcutaneous emphysema. 3. Slight improvement in the left basilar atelectasis.
[2022-04-12] VITALS (14 sets, daily range): BP systolic 84–117; BP diastolic 61–80; PULSE 74–98; RESP 16–27; TEMP 36.6; O2SAT 90–96
--- NOTE | 2022-04-12 06:00 | XR_ITS ---
WS: [id number] Portable AP upright chest, 04/12/2022 Clinical Data: Pneumothorax Comparison: Portable chest, 04/11/2022 Findings: No nodules, masses or effusions are seen. The heart is normal. The pulmonary vascularity is not increased. No pneumonia or pneumothorax is seen. The bilateral subcutaneous emphysema extending from a supraclavicular regions to the lower chest bilaterally has not changed. Monitor leads are on t he chest wall. XR/XR chest 1V portable [id number] Impression: No change in bilateral subcutaneous emphysema.
[2022-04-12] MEDS: enoxaparin 40 mg/0.4 mL Syringe SUBCUT (08:42)
[2022-04-12] MEDS: famotidine 20 mg Tablet PO (08:42)
[2022-04-12] MEDS: budesonide 0.5 mg/2 mL Neb INHALATION (09:11)
[2022-04-12] MEDS: ipratropium-albuterol 3 mL Neb INHALATION (09:11)
--- NOTE | 2022-04-12 10:15 | P.PN_ITS ---
Subjective Subjective: The patient was seen and examined this morning. He is doing very well. Yesterday, all 3 of his remaining valves from the left upper lobe were removed. This had resulted in rapid improvement in the air leak. Overnight, the left-sided chest tube got accidentally pulled. It appears that the hub somehow got disconnected from the remainder of the pigtail catheter and the catheter got pulled through the hub sutured to the skin. In any case, there was no worsening of his pneumothorax. After the chest tube was removed follow-up chest x-ray after an hour did not reveal any pneumothorax. A chest x-ray this morning also did not reveal any pneumothorax. The patient has remained hemodynamically stable without any desaturation or hypotension. Medications: Reviewed: Yes Vitals/I&O/Wt Last Vital Signs Temp 97.8 F 04/12/22 05:00 Pulse 97 04/12/22 10:00 Resp 27 H 04/12/22 10:00 BP 117/77 04/12/22 10:00 Pulse Ox 90 04/12/22 10:00 O2 Del Method 04/12/22 09:11 O2 Flow Rate 2 04/12/22 09:11 FiO2 32 04/03/22 08:00 04/11/22 04/12/22 04/12/22 22:59 06:59 14:59 Intake Total 600 / 600 300 / 900 240 / 240 Output Total 280 / 880 Balance 320 / -280 300 / 20 240 / 240 Physical Exam Narrative: General: Patient is awake alert and oriented. Minimal subcu emphysema in the chest and the face Respiratory: Inspection: Barrel-shaped chest Palpation: Trachea is midline, reduced chest expansion bilaterally Percussion: Hypertympanic bilaterally Auscultation: Reduced breath sound bilaterally, no crackles wheezing or rhonchi Cardiovascular: Regular rate and rhythm, S1-S2 present, distant breath sound, no murmur, no peripheral edema Abdomen: Soft, nontender, nondistended, positive bowel sound Musculoskeletal: No obvious joint deformity Skin: No rash Lymphatic: The axillary and inguinal lymph node groups are not examined Neuro: Mental status is normal, no gross cranial nerve deficit, grossly normal motor function Data : 04/06/22 04:31 04/06/22 04:31 A&P Assessment and plan (1) Stage 4 very severe COPD by GOLD classification: The patient has gold class B COPD.? His pulmonary function test is consistent with very severe airflow obstruction with air trapping. There is no evidence of chronic hypercapnic respiratory failure on the blood gas analysis. He has significant emphysema.? He recently underwent a CT scan for evaluation of lung volume reduction candidacy.? The left upper lobe is a potential targe. The patient walked 530 feet with a 6-minute walk test with desaturation. The perfusion scan revealed 36% overall perfusion to the left lung with less than 5% perfusion in the left upper lung zone. The patient underwent bronchoscopic lung volume reduction procedure on 04/02. Four 9 mm endobronchial valves were deployed in the left upper lobe and lingula. Postprocedure the patient had developed pneumothorax which required chest tube placement. The air leak persisted for 7 days despite some improvement. The endobronchial valve from the lingular segment was removed on 04/09. Unfortunately, the air leak persisted and I was unable to manage the pneumothorax without having him on suction. Following that, the remaining 3 endobronchial valves were removed on 04/11. The patient received steroid for prevention of acute exacerbation and was discontinued after 04/10 The patient has received Levaquin for a total of 7 days including 1 day at home prior to his procedure. This was stopped on 04/07 The patient is ready for discharge today. He will continue with his home inhaler, Advair, Spiriva. (2) Pneumothorax: The patient had developed large left-sided pneumothorax with mild radiographic evidence of tension. He however did not have any significant tachycardia or hypotension. Given the worsening in the chest x-ray between postprocedure and 1 hour followin g that, the decision was made to insert a pigtail catheter. Following placement of the pigtail catheter, there has been better aeration of the left lung. Unfortunately, the patient continued to have persistent air leak and worsening pneumothorax and or subcutaneous emphysema after removal of the suction. He underwent removal of the lingular segment endobronchial valve on 04/09. Unfortunately, despite removing the endobronchial valve from the lingular segment, the patient continued to have persistent air leak requiring suction. The remaining 3 valves were removed on 04/11. Following the removal, the air leak had resolved. The patient had accidental dislodgment of the chest tube last night however, after removal of the chest tube there has been no development of pneumothorax. (3) Chronic respiratory failure with hypoxia: The patient has exertional hypoxemia and nocturnal hypoxemia. He generally uses 2 L of oxygen with exertion which he can continue. (4) Diabetes mellitus: The patient has diabetes mellitus with an A1c of 7.2 in June 2021. He had developed hyperglycemia with the steroid that he had been getting. Sliding scale coverage was discontinued as the patient was not hypoglycemic. He is going to follow-up with his primary care provider for the management of diabetes. (5) Seronegative rheumatoid arthritis of both hands: The patient is on Plaquenil which was started on 04/08. He used to be on methotrexate as outpatient which was stopped. I have asked him to discuss this with his assurance senior manager. He can start the medication anytime the rheumatology seems fit. Attestations Medical Necessity Statement*: The patient is going to be discharged today. Coding Level of Care Code Acute [employer] Maintenance Consultant for Iris Carranza Diagnoses Stage 4 very severe COPD by GOLD classification J44.9 Pneumothorax J93.9 Chronic respiratory failure with hypoxia J96.11 Diabetes mellitus E11.9 Seronegative rheumatoid arthritis of both hands M06.041; M06.042
--- NOTE | 2022-04-12 10:23 | P.DS_ITS ---
Discharge Providers Date of Admission: 04/02/22 08:56 Date of Discharge: April 12, 2022 Attending Provider at Admission: Ibis Branch MD Attending Provider at Discharge: Ibis Branch MD Consults: None Primary Care Provider: Atilio Caceres MD Diagnoses at Discharge Discharge Diagnosis (1) Stage 4 very severe COPD by GOLD classification: Details from hospital stay: The patient has gold class B COPD.? His pulmonary function test is consistent with very severe airflow obstruction with air trapping. There is no evidence of chronic hypercapnic respiratory failure on the blood gas analysis. He has significant emphysema.? He recently underwent a CT scan for evaluation of lung volume reduction candidacy.? The left upper lobe is a potential targe. The patient walked 530 feet with a 6-minute walk test with desaturation. The perfusion scan revealed 36% overall perfusion to the left lung with less than 5% perfusion in the left upper lung zone. The patient underwent bronchoscopic lung volume reduction procedure on 04/02.? Four 9 mm endobronchial valves were deployed in the left upper lobe and lingula. Postprocedure the patient had developed pneumothorax which required chest tube placement.? The air leak persisted for 7 days despite some improvement.? The endobronchial valve from the lingular segment was removed on 04/09.? Unfortunately, the air leak persisted and I was unable to manage the pneumothorax without having him on suction.? Following that, the remaining 3 endobronchial valves were removed on 04/11. The patient received steroid for prevention of acute exacerbation and was discontinued after 04/10 The patient has received Levaquin for a total of 7 days including 1 day at home prior to his procedure.? This was stopped on 04/07 The patient is ready for discharge today.? He will continue with his home inhaler, Advair, Spiriva. Status: Acute (2) Pneumothorax: Details from hospital stay: The patient had developed large left-sided pneumothorax with mild radiographic evidence of tension.? He however did not have any significant tachycardia or hypotension. Given the worsening in the chest x-ray between postprocedure and 1 hour following that, the decision was made to insert a pigtail catheter. Following placement of the pigtail catheter, there has been better aeration of the left lung. Unfortunately, the patient continued to have persistent air leak and worsening pneumothorax and or subcutaneous emphysema after removal of the suction.? He underwent removal of the lingular segment endobronchial valve on 04/09. Unfortunately, despite removing the endobronchial valve from the lingular segment, the patient continued to have persistent air leak requiring suction.? The remaining 3 valves were removed on 04/11.? Following the removal, the air leak had resolved. The patient had accidental dislodgment of the chest tube last night however, after removal of the chest tube there has been no development of pneumothorax. Status: Acute (3) Chronic respiratory failure with hypoxia: Details from hospital stay: The patient has exertional hypoxemia and nocturnal hypoxemia. He generally uses 2 L of oxygen with exertion which he can continue. Status: Acute (4) Diabetes mellitus: Details from hospital stay: The patient is going to follow-up with his primary care provider. His A1c was 7.2 in June 2021. He did develop hyperglycemia when he was getting a higher dose of steroid. Status: Acute (5) Seronegative rheumatoid arthritis of both hands: Details from hospital stay: The patient is on Plaquenil which was started on 04/08.? He used to be on methotrexate as outpatient which was stopped.? I have asked him to discuss this with his youth leader.? He can start the medication anytime the rheumatology seems fit. Status: Acute Reason for Visit Reason for Visit: J44.9 Chronic Obsturctive Pulmonary disease Brief History: Murray Cifuentes is a 61 year old male who was hospitalized after undergoing bronchoscopic lung volume reduction procedure. The patient has gold class B COPD, severe airflow obstruction, nocturnal hypoxemia and chronic hypoxemic respiratory failure. The patient has chronic cough, sputum production and exertional shortness of breath but overall he had s been doing okay.? Although, he thinks that had been some reduction in his lung function. At home,? the patient is on Advair and Spiriva.? He uses albuterol inhaler as needed.? The patient also has a diagnosis of rheumatoid arthritis and is currently on prednisone, Plaquenil and methotrexate.? The patient is currently on 2.5 mg of prednisone.? He was also given sulfasalazine however he could not tolerate it and is currently not taking it. His latest pulmonary function test in February 2022 revealed an FEV1 FVC ratio of 37% with FEV1 of 1.03 L which was 28% of predicted and forced vital capacity of 2.79 L which was 58% of predicted.? His residual volume was 211% and a total lung capacity of 114%.? His DLCO was 61%. The patient had a CT scan for evaluation of lung volume reduction candidacy in September 2021.? The patient has 56% emphysema in the right upper lobe, 47% in the right middle lobe and 25% in the right lower lobe.? The emphysema in the left upper lobe is 63% and the left lower lobe is 59%.? The fissure is incomplete on the right side with a fascial integrity of 82%.? The integrity on the left side is 95%.? The left upper lobe was considered to be a potential target. The patient has a total volume of about 2 L in the left upper lobe and 1674 mL in the left lower lobe. His 6-minute walk test in September was not completed.? He however walked 530 feet in 4 minutes he desaturated to 85%. His arterial blood gas analysis in June did not reveal any evidence of hyperc apnic respiratory failure. On nocturnal oximetry the patient was found to be hypoxic and is currently on 2 L oxygen at nighttime. The patient had a quantitative perfusion scan which showed 64% perfusion of the right lung and 36% of the left lung.? The left upper lobe had nearly 5% perfusion. After discussing the risks and benefits with the patient in detail, the patient decided to proceed with the procedure.? The bronchoscopic lung volume reduction using spiration valve was performed this morning.? Four 9 mm valves were deployed in the left upper lobe and lingula.? The valves are in good position.? The procedure was performed without any difficulty. The postprocedure chest x-ray revealed a large left-sided pneumothorax.? Repeat chest x-ray approximately an hour later did reveal some worsening of the pneumothorax.? There were visible fibrinous adhesion with the chest wall and the left lung.? To assess the adhesion better, the patient underwent a CT scan of the chest which revealed a large pneumothorax.? Additionally was noted in the apex of the left upper lobe. There is mild evidence of tension based on the CT scan.? However, the patient remained hemodynamically stable.? He did complain of chest discomfort, inability to take a deep breath and was tachypneic.? After that, the decision was made to insert an anterior left-sided chest tube. Following the insertion of the chest tube, the patient's shortness of breath had improved.? His oxygenation improved and he was able to take deeper breaths.? Post chest tube insertion chest x-ray with 20 cm of water suction revealed imp roved aeration of the left lung.? There is still apical pneumothorax on the left which could have been secondary to a trapped lung physiology as the left upper lobe is atelectatic except the part of the left upper lobe that has a tethering with the chest wall. The patient denies any fever, night sweats, chills, orthopnea or paroxysmal nocturnal dyspnea. Hospital Course Hospital Course The hospital course is detailed with a discharge diagnosis Physical Exam Narrative: General: Patient is awake alert and oriented. Minimal subcu emphysema in the chest and the face Respiratory: Inspection: Barrel-shaped chest Palpation: Trachea is midline, reduced chest expansion bilaterally Percussion: Hypertympanic bilaterally Auscultation: Reduced breath sound bilaterally, no crackles wheezing or rhonchi Cardiovascular: Regular rate and rhythm, S1-S2 present, distant breath sound, no murmur, no peripheral edema Abdomen: Soft, nontender, nondistended, positive bowel sound Musculoskeletal: No obvious joint deformity Skin: No rash Lymphatic: The axillary and inguinal lymph node groups are not examined Neuro: Mental status is normal, no gross cranial nerve deficit, grossly normal motor function Discharge Data Studies Completed and Pending Completed Studies During Hospitalization Category Date Time Status CT chest wo con [id number] Stat Cat Scan 04/02/22 09:39 Completed XR chest 1V portable [id number] NOW Exams 04/06/22 05:26 Completed XR chest 1V portable [id number] ONCE Exams 04/02/22 09:00 Completed XR chest 1V portable [id number] ONCE Exams 04/02/22 15:30 Completed XR chest 1V portable [id number] ONCE Exams 04/03/22 06:00 Completed XR chest 1V portable [id number] ONCE Exams 04/03/22 13:00 Completed XR chest 1V portable [id number] ONCE Exams 04/07/22 06:00 Completed XR chest 1V portable [id number] Routine Exams 04/03/22 18:00 Completed XR chest 1V portable [id number] Routine Exams 04/04/22 10:00 Completed XR chest 1V portable [id number] Routine Exams 04/04/22 10:00 Completed XR chest 1V portable [id number] Routine Exams 04/04/22 22:00 Completed XR chest 1V portable [id number] Routine Exams 04/05/22 06:00 Completed XR chest 1V portable [id number] Routine Exams 04/08/22 06:11 Completed XR chest 1V portable [id number] Routine Exams 04/08/22 12:30 Completed XR chest 1V portable [id number] Routine Exams 04/09/22 08:18 Completed XR chest 1V portable [id number] Routine Exams 04/09/22 18:00 Completed XR chest 1V portable [id number] Routine Exams 04/10/22 07:00 Completed XR chest 1V portable [id number] Routine Exams 04/11/22 07:00 Completed XR chest 1V portable [id number] Routine Exams 04/11/22 11:00 Completed XR chest 1V portable [id number] Routine Exams 04/12/22 06:00 Completed XR chest 1V portable [id number] Stat Exams 04/02/22 07:54 Completed XR chest 1V portable [id number] Stat Exams 04/02/22 11:19 Completed XR chest 1V portable [id number] Stat Exams 04/05/22 14:45 Completed XR chest 1V portable [id number] Stat Exams 04/10/22 23:29 Completed XR chest 1V portable [id number] Stat Exams 04/11/22 15:46 Completed XR chest 1V portable [id number] Stat Exams 04/11/22 21:00 Completed XR chest 1V portable [id number] Stat Exams 04/11/22 22:40 Completed Radiology Impressions Chest CT 04/02/22 09:39 IMPRESSION: 1. LEFT upper lobe bronchial occlusion devices with large LEFT pneumothorax and suggestion of mild tension. LEFT upper and lower lobes are collapsed. 2. LEFT lung collapsed medially with patchy opacities or edema in the small a mount of residual aerated lung. 3. RIGHT lung is well aerated. Notified Ibis Branch MD at 04/02/2022 10:28 AM. Chest X-Ray 04/12/22 06:00 Impression: No change in bilateral subcutaneous emphysema. Laboratory Results WBC 11.5 10^3/uL (4.0-10.0) H 04/06/22 04:31 RBC 3.96 10^6/uL (4.1-5.3) L 04/06/22 04:31 Hgb 12.9 g/dL (11.7-16.6) 04/06/22 04:31 Hct 39.5 % (42.0-52.0) L 04/06/22 04:31 MCV 99.7 fl (80-94) H 04/06/22 04:31 MCH 32.6 pg (28.0-34.0) 10/08/22 04:31 MCHC 32.7 g/dL (30.0-36.0) 04/06/22 04:31 RDW 13.5 % (12.1-15.1) 04/06/22 04:31 Plt Count 248 10^3/cmm (130-400) 04/06/22 04:31 MPV 9.1 fL (7.4-10.4) 04/06/22 04:31 Neut % (Auto) 66.2 % 04/06/22 04:31 Lymph % (Auto) 21.8 % 04/06/22 04:31 Calhoun % (Auto) 7.9 % 04/06/22 04:31 Eos % (Auto) 3.1 % 04/06/22 04:31 Baso % (Auto) 0.3 % 04/06/22 04:31 Neut # (Auto) 7.58 10^3/uL (1.8-7.7) 04/06/22 04:31 Lymph # (Auto) 2.5 10^3/uL (0.8-4.8) 04/06/22 04:31 Calhoun # (Auto) 0.9 10^3/uL (0.2-0.9) 04/06/22 04:31 Eos # (Auto) 0.4 10^3/uL (0.0-0.8) 04/06/22 04:31 Baso # (Auto) 0.0 10^3/uL (0.0-0.1) 04/06/22 04:31 Nucleated RBC % (auto) 0 % 04/06/22 04:31 Nucleated RBCs # 0.0 /100WBC 04/06/22 04:31 Sodium 135 mmol/L (136-145) L 04/06/22 04:31 Potassium 3.9 mmol/L (3.5-5.1) 04/06/22 04:31 Chloride 98 mmol/L (98-107) 04/06/22 04:31 Carbon Dioxide 28 mmol/L (22-29) 04/06/22 04:31 Anion Gap 12.9 (5-19) 04/06/22 04:31 BUN 18 mg/dL (8-23) 04/06/22 04:31 Creatinine 0.9 mg/dL (0.7-1.2) 04/06/22 04:31 GFR Calculation 85.8 mL/min (90-130) L 04/06/22 04:31 Glucose 240 mg/dL (65-115) H 04/06/22 04:31 POC Glucose 114 mg/dL (70-110) H 04/08/22 07:36 Calculated Osmolality 290 mOsm/kg (285-295) 04/06/22 04:31 Calcium 8.7 mg/dL (8.5-10.5) 04/06/22 04:31 Vitals Last Vital Signs Temp 97.8 F 04/12/22 05:00 Pulse 97 04/12/22 10:00 Resp 27 H 04/12/22 10:00 BP 117/77 04/12/22 10:00 Pulse Ox 90 04/12/22 10:00 O2 Del Method 04/12/22 09:11 O2 Flow Rate 2 04/12/22 09:11 FiO2 32 04/03/22 08:00 Discharge Plan Discharge Patient Disposition: Home Condition: Stable Prescriptions: Continued folic acid 1 mg tablet 1 mg PO DAILY Qty: 90 3RF hydroxychloroquine [Plaquenil] 200 mg tablet 200 mg PO BID Qty: 180 1RF methotrexate sodium 2.5 mg tablet See Rx Instructions .ROUTE .COMPLEX Qty: 90 0RF Dose Instruction: TAKE 6 TABLETS BY MOUTH EVERY 7 DAYS FOR RHEUMATOID ARTHRITIS Rx Instructions: TAKE 6 TABLETS BY MOUTH EVERY 7 DAYS FOR RHEUMATOID ARTHRITIS albuterol sulfate [ProAir HFA] 90 mcg/actuation HFA aerosol inhaler 2 puff INHALATION Q6H PRN (Reason: shortness of breath or wheezing) Qty: 8 6RF fluticasone propion-salmeterol [Advair Diskus] 500-50 mcg/dose blister with device 1 inh inhalation BID 90 Days Qty: 180 3RF ipratropium-albuterol 0.5 mg-3 mg(2.5 mg base)/3 mL solution for nebulization 3 ml inhalation QID PRN (Reason: wheezing) 30 Days Qty: 320 4RF pantoprazole [Protonix] 40 mg tablet,delayed release (DR/EC) 40 mg PO DAILY fluticasone propionate 50 mcg/actuation spray,suspension 1 spray intranasal BID PRN (Reason: Allergy Symptoms) Rx Instructions: SPRAY 1 SPRAY INTO EACH NOSTRIL TWICE DAILY Spiriva with HandiHaler 18 mcg capsule, w/inhalation device 1 cap inhalation DAILY Rx Instructions: INHALE THE CONTENTS OF 1 CAPSULE DAILY, TWO INHALATIONS PER ONE CAPSULE DOSE cholecalciferol (vitamin D3) 50 mcg (2,000 unit) capsule 50 mcg PO DAILY Rx Instructions: TAKE 1 CAPSULE BY MOUTH EVERY DAY Discontinued levofloxacin 750 mg tablet 750 mg PO DAILY 5 Days Qty: 5 0RF prednisone 20 mg tablet 40 mg PO DAILY 5 Days Qty: 10 0RF Discharge Orders: Discharge Order (Routine); Ordered 04/12/22 Ordered By: [employer] teresa Branch Discharge Diet: Usual diet Discharge Activity: Resume usual activity Patient Instructions: Diabetes and Diet, COPD - Emphysema, Chronic Respiratory Failure (DC), Opioid Safety, Pneumothorax Discharge Attestations Time Spent in Discharge Care*: less than 30 min Quality Metrics Clinical Quality Measures [ No reported AMI, CVA or VTE this stay] Coding Level of Care Code Acute Chg FW DC note Diagnoses Stage 4 very severe COPD by GOLD classification J44.9 Pneumothorax J93.9 Chronic respiratory failure with hypoxia J96.11 Diabetes mellitus E11.9 Seronegative rheumatoid arthritis of both hands M06.041; M06.042
== END 2022-04-12 10:39 | disposition home or self-care (01) | DRG 164 ==
LOC: ICU 08:56
PROVIDERS: Admitting Provider Internal Medicine Critical Care Medicine; PCP Family Medicine; Visit Provider Internal Medicine Critical Care Medicine
PROC: 0BJ08ZZ Inspection of Tracheobronchial Tree, Via Natural or Artificial Opening Endoscopic (ICD-10-PCS; CPT 31622; principal; 2022-04-02 07:00)
PROC: 0BH Respiratory System, Insertion (ICD-10-PCS; CPT 31647; 2022-04-02 07:00)
PROC: 0WP Anatomical Regions, General, Removal (ICD-10-PCS; CPT 31647; principal; 2022-04-11 14:00)
DX: J43.9 Emphysema, unspecified (principal); J95.811 Postprocedural pneumothorax; J96.11 Chronic respiratory failure with hypoxia; J95.812 Postprocedural air leak; R53.82 Chronic fatigue, unspecified; K29.50 Unspecified chronic gastritis without bleeding; M10.9 Gout, unspecified; M06.042 Rheumatoid arthritis without rheumatoid factor, left hand; M06.041 Rheumatoid arthritis without rheumatoid factor, right hand; Z87.891 Personal history of nicotine dependence; Z79.51 Long term (current) use of inhaled steroids; E11.65 Type 2 diabetes mellitus with hyperglycemia; T38.0X5A Adverse effect of glucocorticoids and synthetic analogues, initial encounter; T81.82XA Emphysema (subcutaneous) resulting from a procedure, initial encounter; Z79.52 Long term (current) use of systemic steroids
CPT/HCPCS: 31624; 31647; 31648; 36415; 36416; 71045; 71250; 80048; 82962; 85025; 87070; 87205; 94640; 96372; J0330; J1100; J1650; J1815; J1956; J2250; J2270; J2405; J2704; J2710; J2920; J3010; J3490; J3535; J7030; J7512; J7626

== ENCOUNTER 2022-05-21 09:23 | Outpatient (CLI) | payer OTHER, SELFPAY ==
[2022-05-21 09:50] LABS: Basophils % 0.5 %; Eosinophils # 0.3 10^3/uL (0.0-0.8); Eosinophils % 3.7 %; Hematocrit 43.4 % (42.0-52.0); Hemoglobin 13.9 g/dL (11.7-16.6); Lymphocytes # 2.8 10^3/uL (0.8-4.8); Lymphocytes % 36.6 %; Mean Corpuscular Hemoglobin 31.7 pg (28.0-34.0); Mean Corpuscular Volume 99.1 fl (80-94); Mean Platelet Volume 8.7 fL (7.4-10.4); Monocytes # 0.5 10^3/uL (0.2-0.9); Monocytes % 6.9 %; Neutrophils # 3.92 10^3/uL (1.8-7.7); Neutrophils % 51.6 %; Nucleated Red Blood Cells % 0 %; Platelet Count 216 10^3/cmm (130-400); Red Blood Count 4.38 10^6/uL (4.1-5.3); Red Cell Distribution Width 12.7 % (12.1-15.1); White Blood Count 7.6 10^3/uL (4.0-10.0)
[2022-05-21 10:34] LABS: 25 Hydroxy Vitamin D 35 ng/mL (30-100); Alanine Aminotransferase 26 U/L (0-41); Alkaline Phosphatase 79 U/L (40-130); Aspartate Amino Transferase 18 U/L (0-40); C Reactive Protein 5.2 mg/L (0.0-4.9); Globulin 3.4 g/dL (1.3-4.6); Glomerular Filtration Rate 98.3 mL/min (90-130); Total Bilirubin 0.2 mg/dL (0.15-1.2); Total Protein 7.4 g/dL (6.6-8.7)
== END 2022-05-21 09:24 | disposition home or self-care (01) ==
LOC: LAB 09:24
PROVIDERS: PCP Family Medicine; Visit Provider Internal Medicine Rheumatology
DX: Z79.899 Other long term (current) drug therapy (principal); J96.11 Chronic respiratory failure with hypoxia; M06.041 Rheumatoid arthritis without rheumatoid factor, right hand; M06.042 Rheumatoid arthritis without rheumatoid factor, left hand; M19.90 Unspecified osteoarthritis, unspecified site; R79.82 Elevated C-reactive protein (CRP)
CPT/HCPCS: 36415; 80076; 82306; 82565; 85025; 86140

== ENCOUNTER → 2022-07-19 09:56 | Outpatient (BNVA) | payer OTHER, SELFPAY | PROVIDERS: PCP Family Medicine; Visit Provider Family Medicine | DX: J98.4 Other disorders of lung (principal); M65.312 Trigger thumb, left thumb; Z13.6 Encounter for screening for cardiovascular disorders | CPT/HCPCS: 80061; 82607; 83036 ==

== ENCOUNTER 2022-09-12 08:55 | Outpatient (RCR) | payer OTHER, SELFPAY | END 2022-09-27 23:59 | disposition home or self-care (01) | LOC: PULRHB 08:55 | PROVIDERS: PCP Family Medicine; Visit Provider Internal Medicine Pulmonary Disease | DX: J44.9 Chronic obstructive pulmonary disease, unspecified (principal) | CPT/HCPCS: 94625 ==

== ENCOUNTER 2022-09-17 20:00 | Outpatient (CLI) | payer OTHER, SELFPAY | END 2022-09-17 20:01 | disposition home or self-care (01) | LOC: SLEEP 09-18 04:27 | PROVIDERS: PCP Family Medicine; Visit Provider Internal Medicine Pulmonary Disease | DX: G47.33 Obstructive sleep apnea (adult) (pediatric) (principal); J43.1 Panlobular emphysema | CPT/HCPCS: 95810 ==

== ENCOUNTER 2022-09-28 06:00 | Outpatient (RCR) | payer OTHER, SELFPAY | END 2022-10-27 23:59 | disposition home or self-care (01) | LOC: PULRHB 06:00 | PROVIDERS: PCP Family Medicine; Visit Provider Internal Medicine Pulmonary Disease | DX: J44.9 Chronic obstructive pulmonary disease, unspecified (principal) | CPT/HCPCS: 94625 ==

== ENCOUNTER 2022-09-30 07:56 | Outpatient (CLI) | payer OTHER, SELFPAY ==
--- NOTE | 2022-09-30 08:15 | CT_ITS ---
WS: [id number] LDCT LUNG CANCER SCREENING HISTORY: lung screening TECHNIQUE: Axial imaging performed from the apices to 1 cm below the costophrenic angles. Coronal and sagittal reformats are submitted with axial MIP series. All CT scans at [facility] use at least one of these dose optimization techniques: automated exposure control; mA and/or kV adjustment per patient size (includes targeted exams where dose is matched to clinical indication); or iterativ e reconstruction. DLP: 89.77 mGy.cm DIvol: Mean CTDIvol: 1.60 (mGy) COMPARISON: Chest CT 04/02/2022 Diagnostic quality: Satisfactory Lungs: Chronic emphysema. Spiculated nodule LEFT upper lobe stable since at least 04/10/2020. This is probably an area of scarring. New spiculated solid nodule measuring 11 mm inferior LEFT upper lobe. Linear areas of scarring in the lower lung parra. No endobronchial lesions are identified. Heart: Normal size heart with no pericardial effusion.. Scattered mild coronary artery calcifications . Other findings: Mild atherosclerosis aorta. No mediastinal or hilar lymph nodes. Small hiatal hernia. Hepatic steatosis. No adrenal mass. CT/CT lung screening [id number] IMPRESSION: LUNG-RADS: 4A-Probably Suspicious FOLLOW UP: 3 Month LDCT OTHER FINDINGS (S MODIFIER): None.
[2022-09-30 16:20] LABS: Nodify Test Kit S
== END 2022-09-30 07:57 | disposition home or self-care (01) ==
PROVIDERS: PCP Family Medicine; Visit Provider Internal Medicine Pulmonary Disease
DX: Z12.2 Encounter for screening for malignant neoplasm of respiratory organs (principal); J44.9 Chronic obstructive pulmonary disease, unspecified; J96.11 Chronic respiratory failure with hypoxia; Z87.891 Personal history of nicotine dependence; R91.1 Solitary pulmonary nodule
CPT/HCPCS: 36415; 71271

== ENCOUNTER 2022-10-28 06:00 | Outpatient (RCR) | payer OTHER, SELFPAY | END 2022-11-27 23:59 | disposition home or self-care (01) | LOC: PULRHB 06:00 | PROVIDERS: PCP Family Medicine; Visit Provider Internal Medicine Pulmonary Disease | DX: J44.9 Chronic obstructive pulmonary disease, unspecified (principal) | CPT/HCPCS: 94625 ==

== ENCOUNTER 2022-11-18 20:00 | Outpatient (CLI) | payer OTHER, SELFPAY | END 2022-11-18 20:01 | disposition home or self-care (01) | LOC: SLEEP 11-19 05:37 | PROVIDERS: PCP Family Medicine; Visit Provider Internal Medicine Pulmonary Disease | DX: G47.33 Obstructive sleep apnea (adult) (pediatric) (principal) | CPT/HCPCS: 95811 ==

== ENCOUNTER 2022-11-28 06:00 | Outpatient (RCR) | payer OTHER, SELFPAY | END 2022-12-27 23:59 | disposition home or self-care (01) | LOC: PULRHB 06:00 | PROVIDERS: PCP Family Medicine; Visit Provider Internal Medicine Pulmonary Disease | DX: J44.9 Chronic obstructive pulmonary disease, unspecified (principal) | CPT/HCPCS: 94625 ==

== ENCOUNTER → 2023-01-02 08:58 | Outpatient (BNVA) | payer MEDICARE, SELFPAY | PROVIDERS: PCP Family Medicine; Visit Provider Internal Medicine Pulmonary Disease | DX: J43.1 Panlobular emphysema (principal); G47.33 Obstructive sleep apnea (adult) (pediatric); G47.34 Idiopathic sleep related nonobstructive alveolar hypoventilation; J98.4 Other disorders of lung; J96.11 Chronic respiratory failure with hypoxia; Z87.891 Personal history of nicotine dependence | CPT/HCPCS: 99214 ==

== ENCOUNTER → 2023-01-15 10:35 | Outpatient (BNVA) | payer MEDICARE, SELFPAY | PROVIDERS: PCP Family Medicine; Visit Provider Family Medicine | DX: Z12.5 Encounter for screening for malignant neoplasm of prostate (principal); R25.2 Cramp and spasm; Z13.220 Encounter for screening for lipoid disorders; E11.9 Type 2 diabetes mellitus without complications; Z51.81 Encounter for therapeutic drug level monitoring | CPT/HCPCS: 80053; 80061; 83036; 83735; 84153; 85025 ==

== ENCOUNTER 2023-01-21 10:51 | Outpatient (CLI) | payer MEDICARE, SELFPAY ==
--- NOTE | 2023-01-21 11:00 | CTR_ITS ---
PROCEDURE INFORMATION: Exam: CT Chest Without Contrast; Diagnostic Exam date and time: 01/21/2023 11:20 AM Age: 62 years old Clinical indication: Abnormal findings; Abnormal radiologic exam of lung or chest; Prior surgery; Surgery date: 6+ months; Surgery type: Left lung; Additional info: Undeterminate nodify test TECHNIQUE: Imaging protocol: Diagnostic computed tomography of the chest without contrast. Radiation optimization: All CT scans at this facility use at least one of these dose optimization techniques: automated exposure control; mA and/or kV adjustment per patient size (includes targeted exams where dose is matched to clinical indication); or iterative reconstruction. REPORTING DATA: Count of CT and Cardiac NM exams in prior 12 months: This patient has received 2 known CTs and 0 known cardiac nuclear medicine studies in the 12 months prior to the current study. COMPARISON: CT lung screening [id number] 09/30/2022 8:05 AM RADIATION DOSE METRICS: Total DLP (mGy-cm): 422.57 FINDINGS: Lungs: COPD with diffuse upper lobe emphysematous changes, stable. Indistinct stellate shaped opacity left upper lobe unchanged from March 2020 presumed secondary to scarring. Interval resolution of left lingular nodular opacity with spiculated margin consistent with benign etiology. Mild bronchiectasis and minor atelectatic changes lower lung zones, stable. Pleural spaces: Unremarkable. No pneumothorax. No pleural effusion. Heart: Heart is not significantly enlarged. There are mild calcifications of the coronary arteries. No significant pericardial effusion. Lymph nodes: Unremarkable. No enlarged lymph nodes. Vasculature: Unremarkable. No aortic aneurysm. Bones/joints: Mild degenerative changes mid-lower thoracic spine with mild compression deformity midthoracic vertebra unchanged. No acute bony abnormalities. Soft tissues: Unremarkable. CT/CT chest wo con [id number] IMPRESSION: 1. Resolved spiculated nodule left lingula consistent with benign etiology. 2. COPD with upper lobe emphysematous changes and left upper lobe scar, stable. COMMENTS: In the absence of a history or active diagnosis of lung cancer, it is recommended that this patient with emphysema be evaluated for enrollment in a low dose CT lung cancer screening program.
== END 2023-01-21 10:52 | disposition home or self-care (01) ==
LOC: RAD 10:52
PROVIDERS: PCP Family Medicine; Visit Provider Internal Medicine Pulmonary Disease
DX: R93.89 Abnormal findings on diagnostic imaging of other specified body structures (principal); J43.9 Emphysema, unspecified
CPT/HCPCS: 71250

== ENCOUNTER → 2023-02-13 13:14 | Outpatient (BNVA) | payer MEDICARE, SELFPAY | PROVIDERS: PCP Family Medicine; Referring Provider Family Medicine; Visit Provider Dermatology | DX: L30.0 Nummular dermatitis (principal); E13.620 Other specified diabetes mellitus with diabetic dermatitis; L81.4 Other melanin hyperpigmentation; D18.01 Hemangioma of skin and subcutaneous tissue; L57.0 Actinic keratosis; D48.5 Neoplasm of uncertain behavior of skin; D23.39 Other benign neoplasm of skin of other parts of face; L82.1 Other seborrheic keratosis; L85.3 Xerosis cutis | CPT/HCPCS: 11102; 17000; 99204 ==

== ENCOUNTER → 2023-02-25 09:24 | Outpatient (BNVA) | payer MEDICARE, SELFPAY | PROVIDERS: PCP Family Medicine; Visit Provider Surgery | DX: Z12.11 Encounter for screening for malignant neoplasm of colon (principal) | CPT/HCPCS: 99024; 99203 ==

== ENCOUNTER 2023-03-14 07:39 | Outpatient (CLI) | payer MEDICARE, SELFPAY ==
--- NOTE | 2023-03-14 08:00 | US_ITS ---
WS: [id number] RENAL ULTRASOUND URINARY BLADDER ULTRASOUND HISTORY: Urinary frequency/retention COMPARISON: None available. TECHNIQUE: 2-D and color Doppler imaging of the kidney submitted. Right kidney: 10.7 cm x 5.1 cm x 4.9 cm. Normal echogenicity with no hydronephrosis or mass. Left kidney: 11.5 cm x 4.4 cm x 5.1 cm. Normal echogenicity with no hydronephrosis or mass. Aorta: Normal. Urinary Bladder: Normal distention. No bladder mass identified. Prevoid volume 2016 mL. Post void vol ume is 26 mL. IMPRESSION: Normal renal ultrasound. Normal urinary bladder. No significant post void residual.
== END 2023-03-14 07:40 | disposition home or self-care (01) ==
PROVIDERS: PCP Family Medicine; Visit Provider Family Medicine
DX: N40.1 Benign prostatic hyperplasia with lower urinary tract symptoms (principal); R33.8 Other retention of urine; N13.8 Other obstructive and reflux uropathy; R35.0 Frequency of micturition
CPT/HCPCS: 76770; 76857

== ENCOUNTER → 2023-03-25 13:45 | Outpatient (BNVA) | payer MEDICARE, SELFPAY | PROVIDERS: PCP Family Medicine; Visit Provider Internal Medicine Rheumatology | DX: M06.041 Rheumatoid arthritis without rheumatoid factor, right hand (principal); M06.042 Rheumatoid arthritis without rheumatoid factor, left hand; Z79.899 Other long term (current) drug therapy; Z71.89 Other specified counseling; J43.1 Panlobular emphysema | CPT/HCPCS: 99214 ==

== ENCOUNTER → 2023-04-03 08:39 | Outpatient (BNVA) | payer MEDICARE, SELFPAY | PROVIDERS: PCP Family Medicine; Visit Provider Internal Medicine Pulmonary Disease | DX: J43.1 Panlobular emphysema (principal); G47.33 Obstructive sleep apnea (adult) (pediatric); G47.34 Idiopathic sleep related nonobstructive alveolar hypoventilation; J98.4 Other disorders of lung; J96.11 Chronic respiratory failure with hypoxia; Z87.891 Personal history of nicotine dependence | CPT/HCPCS: 99214 ==

== ENCOUNTER 2023-05-06 05:55 | Day surgery (SDC) | payer MEDICARE, SELFPAY ==
[2023-05-06 06:07] VITALS: BMI 29.2
[2023-05-06 06:08] VITALS: BP 132/79; PULSE 90; RESP 16; TEMP 36.3; O2SAT 92
[2023-05-06] MEDS: sodium chloride 0.9% 1,000 ML 30 ML IV (06:14)
[2023-05-06 06:19] LABS: Glucose Point of Care 154 mg/dL (70-110)
--- NOTE | 2023-05-06 06:36 | P.HP_ITS ---
Same Day Surgery H&P Indication for Procedure/HPI DATE OF PROCEDURE: May 06, 2023 CHIEF COMPLAINT/INDICATIONFOR SURGICAL PROCEDURE: need for screening for colorectal cancer PREOP DIAGNOSIS: need for screening for colorectal cancer PLANNED PROCEDURE: Operation Date: 05/06/23 07:00 Proposed Procedures p Colonoscopy 55580,Z12.11(Not Applicable) - Ha Ring MD Medications/Allergies* Home Medications Medication Instructions Recorded Confirmed Type cholecalciferol (vitamin D3) 50 50 mcg PO DAILY 04/02/22 05/02/23 History mcg (2,000 unit) capsule tiotropium bromide 18 mcg capsule 1 cap inhalation DAILY 04/02/22 05/02/23 History with inhalation device (Spiriva with HandiHaler) azelastine 137 mcg (0.1 %) nasal 1 spray intranasal BID PRN 09/30/22 05/02/23 History spray aerosol Congestion hydroxychloroquine 200 mg tablet 100 mg PO DAILY 05/02/23 05/02/23 History (Plaquenil) Allergies/Adverse Reactions Allergy/AdvReac Type Severity Reaction Status Date / Time sulfasalazine Allergy Intermediate rash, Verified 05/02/23 12:14 worsening tremor Iodinated Contrast Media Allergy ALGY-Hives Verified 05/02/23 12:14 tofacitinib [From Xeljanz] AdvReac Intermediate foggy, Verified 05/02/23 12:[address] simvastatin AdvReac Mild ADR-Dizzine Verified 05/02/23 12:14 ss Current Medications: Generic Name Dose Route Start Last Admin Trade Name Freq PRN Reason Stop Dose Admin Sodium Chloride 1,000 mls @ 30 mls/hr 05/06/23 06:00 05/06/23 06:14 Sodium Chloride 0.9% IV 30 mls/hr .Q24H MARIA ANTONIA Administration Pertinent History/Comorbid Conditions* Medical History (Updated 02/28/23 @ 19:00 by Atilio Caceres MD) Chronic fatigue disorder Chronic gastritis COPD (chronic obstructive pulmonary disease) Elevated C-reactive protein (CRP) Gouty arthropathy High risk medication use HME (human monocytic ehrlichiosis) Immunization counseling Joint pain Seronegative rheumatoid arthritis of both hands Surgical History (Updated 07/22/22 @ 21:30 by Atilio Caceres MD) History of carpal tunnel surgery History of inguinal hernia repair History of knee surgery History of lung surgery History of rotator cuff surgery History of vasectomy Family History (Updated 01/19/20 @ 16:28 by Shila Lopez LPN) Diabetes CAD (coronary artery disease) Heart disease Family history of premature coronary artery disease Lung disease Social History Smoking and tobacco/nicotine status: former use of tobacco/nicotine Quit status (tobacco/nicotine): has quit using Year quit tobacco: 2020 Former quit date comment: 1ppd X 45 years Alcohol intake: never Substance/Drug Use: never Marital status: Current occupational status: employed 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
--- NOTE | 2023-05-06 06:59 | ANES.PREANE2 ---
Pre-Anesthetic Assessment Height/Weight: Height 1.8 m Weight 95.254 kg Temp Pulse Resp BP Pulse Ox O2 Del Method 97.3 F L 90 16 132/79 92 Room Air 05/06/23 06:08 05/06/23 06:08 05/06/23 06:08 05/06/23 06:08 05/06/23 06:08 05/06/23 06:08 Preop Diagnosis: need for screening for colorectal cancer Operation Date: 05/06/23 07:00 Proposed Procedures p Colonoscopy 22972,Z12.11(Not Applicable) - Ha Ring MD Familial anesthetic complications: none Was Beta Constantino taken within 24 hours: N/A Was Clonidine taken within 24 hours: N/A Last intake: Intake Last Liquid Date 05/05/23 Last Liquid Time 21:30 Last Solid Date 05/04/23 Last Solid Time 20:00 Social No alcohol and No tobacco quit 3 years ago Exam alert and oriented x 3 Airway Submandibular: within normal limits Cervical ROM: within normal limits Mallampati: Class I Dentition: full Pulmonary Chronic Obstructive Pulmonary Disease None reported Hepatic None reported Metabolic Diabetes Mellitus and Hyperlipidemia [facility] [place] Rheumatoid Arthritis Neuropsych None reported Anesthetic Plan ASA status: 3 Anesthesia: Anesthesia Evaluation, General and MAC Medications/Allergies Home Medications Medication Instructions Recorded Confirmed Last Taken Type albuterol sulfate 90 mcg/actuation 2 puff inhalation Q6H PRN 02/27/22 05/06/23 05/04/23 Rx aerosol inhaler (ProAir HFA) shortness of breath or wheezing #8 grams cholecalciferol (vitamin D3) 50 50 mcg PO DAILY 04/02/22 05/06/23 05/04/23 History mcg (2,000 unit) capsule tiotropium bromide 18 mcg capsule 1 cap inhalation DAILY 04/02/22 05/06/23 05/04/23 History with inhalation device (Spiriva with HandiHaler) blood-glucose meter #1 ea 04/23/22 05/02/23 05/02/23 Rx cyanocobalamin (vitamin B-12) 500 500 mcg PO DAILY #30 tabs 08/06/22 05/06/23 05/04/23 Rx mcg tablet (Vitamin B-12) azelastine 137 mcg (0.1 %) nasal 1 spray intranasal BID PRN 09/30/22 05/06/23 05/04/23 History spray aerosol Congestion fluticasone 500 mcg-salmeterol 50 1 inh inhalation BID #60 ea 11/19/22 05/06/23 05/04/23 Rx mcg/dose blistr powdr for inhalation (Wixela Inhub) lancets 33 gauge (TRUEplus Lancets) ##100 11/20/22 05/02/23 05/02/23 Rx folic acid 1 mg tablet 1 mg PO DAILY #90 tabs 12/24/22 05/06/23 05/04/23 Rx triamcinolone acetonide 0.1 % 1 applic topical DAILY #30 grams 01/15/23 05/06/23 05/04/23 Rx topical cream blood sugar diagnostic (True #100 strips 02/04/23 05/02/23 05/02/23 Rx Metrix Glucose Test Strip) prednisone 10 mg tablet 10 mg PO DAILY PRN for flares #30 03/25/23 05/06/23 05/04/23 Rx tabs ipratropium 0.5 mg-albuterol 3 mg 3 ml inhalation QID PRN wheezing 04/03/23 05/06/23 05/04/23 Rx (2.5 mg base)/3 mL nebulization 30 days #320 mL soln hydroxychloroquine 200 mg tablet 100 mg PO DAILY 05/02/23 05/06/23 05/04/23 History (Plaquenil) pantoprazole 40 mg tablet,delayed 40 mg PO DAILY #90 tabs 05/05/23 05/06/23 05/04/23 Rx release (Protonix) ketoconazole 2 % shampoo 1 applic topical .Twice a week 05/06/23 Unknown Rx #120 mL Allergies Allergy/AdvReac Type Severity Reaction Status Date / Time sulfasalazine Allergy Intermediate rash, Verified 05/06/23 06:47 worsening tremor Iodinated Contrast Media Allergy ALGY-Hives Verified 05/06/23 06:47 tofacitinib [From Xeljanz] AdvReac Intermediate foggy, Verified 05/06/23 06:[address] simvastatin AdvReac Mild ADR-Dizzine Verified 05/06/23 06:47 ss Current Medications Generic Name Dose Route Start Last Admin Trade Name Freq PRN Reason Stop Dose Admin Sodium Chloride 1,000 mls @ 30 mls/hr 05/06/23 06:00 05/06/23 06:14 Sodium Chloride 0.9% IV 30 mls/hr .Q24H MARIA ANTONIA Administration PFSH Anesthesia Medical History Chronic fatigue disorder Chronic gastritis COPD (chronic obstructive pulmonary disease) Elevated C-reactive protein (CRP) Gouty arthropathy High risk medication use HME (human monocytic ehrlichiosis) Immunization counseling Joint pain Seronegative rheumatoid arthritis of both hands Surgical History History of carpal tunnel surgery History of inguinal hernia repair History of knee surgery History of lung surgery History of rotator cuff surgery History of vasectomy Family History Other CAD (coronary artery disease) Diabetes Family history of premature coronary artery disease Heart disease Lung disease Social History Smoking and tobacco/nicotine status: former use of tobacco/nicotine Quit status (tobacco/nicotine): has quit using Year quit tobacco: 2020 Former quit date comment: 1ppd X 45 years Alcohol intake: never Substance/Drug Use: never Marital status: Current occupational status: employed 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
[2023-05-06 07:28] VITALS: BP 104/62; PULSE 88; RESP 16; TEMP 36.3; O2SAT 96
--- NOTE | 2023-05-06 07:33 | ANE.PACU2 ---
Inpatient post-anesthesia follow up: Airway intact: Yes Vital signs: Temperature 97.3 F Pulse Rate 90 Respiratory Rate 16 Blood Pressure 132/79 Pulse Oximetry 92 Oxygen Delivery Me thod Room Air Oxygen Flow Rate Fraction of Inspir ed Oxygen Hydration adequate: Yes Nausea and vomiting: No Pain level: 1 Mental status: Baseline
[2023-05-06 07:40] VITALS: BP 110/79; PULSE 81; RESP 18; O2SAT 94
[2023-05-06 07:45] VITALS: BP 129/78; PULSE 73; RESP 18; O2SAT 95
== END 2023-05-06 08:00 | disposition home or self-care (01) ==
PROVIDERS: PCP Family Medicine; Visit Provider Surgery
PROC: 0DJD8ZZ Inspection of Lower Intestinal Tract, Via Natural or Artificial Opening Endoscopic (ICD-10-PCS; CPT 45378; principal; 2023-05-06 07:00)
DX: Z12.11 Encounter for screening for malignant neoplasm of colon (principal); J44.9 Chronic obstructive pulmonary disease, unspecified; Z87.891 Personal history of nicotine dependence; D12.3 Benign neoplasm of transverse colon; E11.9 Type 2 diabetes mellitus without complications; E78.5 Hyperlipidemia, unspecified; M06.9 Rheumatoid arthritis, unspecified; K57.30 Diverticulosis of large intestine without perforation or abscess without bleeding; K64.8 Other hemorrhoids
CPT/HCPCS: 36416; 45385; 82962; 88305; J2704; J7030

== ENCOUNTER → 2023-05-19 13:21 | Outpatient (BNVA) | payer MEDICARE, SELFPAY | PROVIDERS: PCP Family Medicine; Visit Provider Surgery | DX: Z09 Encounter for follow-up examination after completed treatment for conditions other than malignant neoplasm (principal) | CPT/HCPCS: 99213 ==

== ENCOUNTER → 2023-07-22 12:45 | Outpatient (BNVA) | payer MEDICARE, SELFPAY | PROVIDERS: PCP Family Medicine; Visit Provider Internal Medicine Rheumatology | DX: M06.041 Rheumatoid arthritis without rheumatoid factor, right hand (principal); M06.042 Rheumatoid arthritis without rheumatoid factor, left hand; Z79.899 Other long term (current) drug therapy; Z71.89 Other specified counseling; J43.1 Panlobular emphysema | CPT/HCPCS: 36415; 80076; 82565; 85025; 86140; 99214 ==

== ENCOUNTER → 2023-09-12 09:14 | Outpatient (BNVA) | payer MEDICARE, SELFPAY | PROVIDERS: PCP Family Medicine; Visit Provider Internal Medicine Pulmonary Disease | DX: J43.1 Panlobular emphysema (principal); J44.9 Chronic obstructive pulmonary disease, unspecified; G47.33 Obstructive sleep apnea (adult) (pediatric); G47.34 Idiopathic sleep related nonobstructive alveolar hypoventilation; J98.4 Other disorders of lung; J96.11 Chronic respiratory failure with hypoxia; J98.6 Disorders of diaphragm; Z87.891 Personal history of nicotine dependence | CPT/HCPCS: 99214 ==

== ENCOUNTER → 2024-01-06 12:34 | Outpatient (BNVA) | payer MEDICARE, SELFPAY | PROVIDERS: PCP Family Medicine; Visit Provider Internal Medicine Rheumatology | DX: M06.041 Rheumatoid arthritis without rheumatoid factor, right hand (principal); M06.042 Rheumatoid arthritis without rheumatoid factor, left hand; Z79.899 Other long term (current) drug therapy; J43.1 Panlobular emphysema; Z71.85 Encounter for immunization safety counseling; F17.210 Nicotine dependence, cigarettes, uncomplicated | CPT/HCPCS: 36415; 80076; 82310; 82565; 83735; 84100; 84132; 85025; 85651; 86140; 99214 ==

== ENCOUNTER → 2024-01-13 12:40 | Outpatient (BNVA) | payer MEDICARE, SELFPAY | PROVIDERS: PCP Family Medicine; Visit Provider Family Medicine | DX: E11.9 Type 2 diabetes mellitus without complications (principal); E55.9 Vitamin D deficiency, unspecified; N13.8 Other obstructive and reflux uropathy; N40.1 Benign prostatic hyperplasia with lower urinary tract symptoms | CPT/HCPCS: 80048; 80061; 82306; 82607; 83036; 84153 ==

== ENCOUNTER 2024-01-22 09:00 | Outpatient (CLI) | payer MEDICARE, SELFPAY ==
--- NOTE | 2024-01-22 09:00 | CT_ITS ---
WS: [id number] LDCT LUNG CANCER SCREENING TECHNIQUE: Noncontrast CT of the chest with coronal and sagittal reformatted images. CLINICAL INFORMATION: Cancer Screen COMPARISON: None. DLP: 90.57 mGy.cm DIvol: Mean CTDIvol: 1.60 (mGy) All CT scans at [facility] use at least one of these dose optimization techniques: automat ed exposure control; mA and/or kV adjustment per patient size (includes targeted exams where dose is matched to clinical indication); or iterative reconstruction. FINDINGS: Moderate chronic emphysematous changes. Slight bibasal atelectasis. Subsegmental atelectasi s in the lower lobes. Chronic appearing parenchymal scarring in the inferior segment LEFT upper lobe unchanged. No new suspicious pulm parenchymal abnormalities. Normal caliber thoracic aorta. Aortic calcification. Coronary calcification. No mediastinal or hilar lymphadenopathy. No axillary lymphadenopathy. Normal GE junction. Diffuse fatty infiltration of the liver. Adrenal glands are normal. Mild thoracic curve. Mild thoracic kyphosis. CT/CT lung screening [id number] IMPRESSION: LUNG-RADS: 2-Benign Appearance or Behavior FOLLOW UP: 12 Month: Continue annual screening with LDCT
== END 2024-01-22 09:01 | disposition home or self-care (01) ==
PROVIDERS: PCP Family Medicine; Visit Provider Internal Medicine Pulmonary Disease
DX: Z12.2 Encounter for screening for malignant neoplasm of respiratory organs (principal); Z87.891 Personal history of nicotine dependence; J43.8 Other emphysema; J98.11 Atelectasis; J98.4 Other disorders of lung; M40.204 Unspecified kyphosis, thoracic region
CPT/HCPCS: 71271

== ENCOUNTER → 2024-02-03 12:33 | Outpatient (BNVA) | payer MEDICARE, SELFPAY | PROVIDERS: PCP Family Medicine; Visit Provider Internal Medicine Critical Care Medicine | DX: J44.9 Chronic obstructive pulmonary disease, unspecified; G47.33 Obstructive sleep apnea (adult) (pediatric); R06.09 Other forms of dyspnea; J98.6 Disorders of diaphragm; R29.898 Other symptoms and signs involving the musculoskeletal system; F17.211 Nicotine dependence, cigarettes, in remission; Z71.6 Tobacco abuse counseling | CPT/HCPCS: 99214 ==

== ENCOUNTER → 2024-08-02 13:40 | Outpatient (BNVA) | payer MEDICARE, SELFPAY | PROVIDERS: PCP Family Medicine; Visit Provider Family Medicine | DX: J44.9 Chronic obstructive pulmonary disease, unspecified (principal); J22 Unspecified acute lower respiratory infection; J44.1 Chronic obstructive pulmonary disease with (acute) exacerbation | CPT/HCPCS: 87400; 87426 ==

== ENCOUNTER → 2024-08-26 09:25 | Outpatient (BNVA) | payer MEDICARE, SELFPAY | PROVIDERS: PCP Family Medicine; Visit Provider Family Medicine | DX: Z51.81 Encounter for therapeutic drug level monitoring (principal); Z13.6 Encounter for screening for cardiovascular disorders; E11.9 Type 2 diabetes mellitus without complications | CPT/HCPCS: 80053; 80061; 83036; 85025 ==

== ENCOUNTER → 2024-12-30 14:39 | Outpatient (BNVA) | payer MEDICARE, SELFPAY | PROVIDERS: PCP Family Medicine; Visit Provider Internal Medicine Rheumatology | DX: M06.041 Rheumatoid arthritis without rheumatoid factor, right hand (principal); M06.042 Rheumatoid arthritis without rheumatoid factor, left hand; Z79.899 Other long term (current) drug therapy; Z71.89 Other specified counseling; J43.1 Panlobular emphysema | CPT/HCPCS: 99214 ==

== ENCOUNTER 2025-01-26 10:45 | Outpatient (CLI) | payer MEDICARE, SELFPAY ==
[2025-01-26 11:11] VITALS: PULSE 87; RESP 18; O2SAT 92
== END 2025-01-26 10:46 | disposition home or self-care (01) ==
LOC: RT 10:46
PROVIDERS: PCP Family Medicine
DX: R06.09 Other forms of dyspnea (principal); R05.9 Cough, unspecified; R06.2 Wheezing; J44.9 Chronic obstructive pulmonary disease, unspecified
CPT/HCPCS: 94060; 94618; 94726; 94729; J7613

== ENCOUNTER → 2025-02-02 14:01 | Outpatient (BNVA) | payer MEDICARE, SELFPAY | PROVIDERS: PCP Family Medicine; Visit Provider Internal Medicine | DX: J44.9 Chronic obstructive pulmonary disease, unspecified (principal); J96.11 Chronic respiratory failure with hypoxia; Z87.891 Personal history of nicotine dependence | CPT/HCPCS: 99205; 99215 ==

== ENCOUNTER 2025-02-04 08:25 | Outpatient (CLI) | payer MEDICARE, SELFPAY ==
--- NOTE | 2025-02-04 09:00 | CT_ITS ---
WS: [id number] CT chest wo con [id number] REASON FOR EXAM: COPD; eval for endobronchial valve IV CONTRAST ADMINISTERED: None. TECHNIQUE: Multiple axial images through the chest were obtained without intravenous contrast. Coronal and sagittal reconstructions. TOTAL EXAM DLP: 480.[address] scans at [facility] use at least one of these dose optimization techniques: automated exposure control; mA and/or kV adjustment per patient size (includes targeted exams where dose is matched to clinical indication); or iterative reconstruction. FINDINGS: No mediastinum, hilar, or axillary adenopathy. Aortic calcification and coronary artery calcification. Multiple calcified granulomas. Overall the lungs demonstrate extensive small cystic areas and also large subpleural bullae and large areas of lung parenchyma devoid of nearly all interstitial and alveolar wall opacities with only traversing vessels. These findings predominate in the extreme upper and lower lungs bilaterally. In the lower lobes there is mild cylindrical bronchiectasia with mural thickening. Compared to the screening examination of 01/22/2020, there is a new 6 x 7 mm eccentrically calcified, tail lesion tail into the pleura in the left upper lung. Best seen on image 36 series 5. Remaining previously identified nodule/pulmonary fibrosis and scarring are unchanged. No endobronchial valve is identified. CT/CT chest wo con [id number] IMPRESSION: New left lung nodule which likely represents a calcified granuloma the chest is otherwise unchanged. Recommend 6-month follow-up, lung RADS 3, then yearly follow-up lung RADS 2 if stable or resolved.
[2025-02-04 09:15] LABS: ABG PCO2 41.8 mmHg (35-45); ABG PH Result 7.41 (7.35-7.45); Alveolar-Arterial Oxygen Gradi 9.4 mmHg (5-10); Arterial Blood Gas Hematocrit 40.3 % (42-52); Blood Gas Allen Test Pos; Blood Gas LPM 2.0 %; Blood Gas Operator Identificat glc; Blood Gas Sample Site Radial, right; Blood Gas Sample Type Arterial; Carboxyhemoglobin 0.2 %THgb (0.4-20.1); Glucose Level-ABG 145.0 mg/dL (70-115); HCO3 ABG 26.5 mmol/L (22-26); Ionized Calcium Level - ABG 1.1 mmol/L (1.1-1.4); Methemoglobin 0.9 % (0.4-1.5); Oxygen Saturation ABG 94.7; PO2 ABG 75.3 mmHg (80.0-100.0); PO2 FiO2 Ratio Arterial Blood 268; Potassium Level - ABG 3.9 mmol/L (3.5-5.0); Sodium Level - ABG 139.0 mmol/L (131-143)
== END 2025-02-04 08:26 | disposition home or self-care (01) ==
LOC: RAD 08:27
PROVIDERS: PCP Family Medicine
DX: J44.9 Chronic obstructive pulmonary disease, unspecified (principal); J96.11 Chronic respiratory failure with hypoxia; R91.1 Solitary pulmonary nodule
CPT/HCPCS: 36600; 71250; 80051; 82330; 82805

== ENCOUNTER 2025-02-18 11:55 | Outpatient (CLI) | payer MEDICARE, SELFPAY ==
--- NOTE | 2025-02-18 13:00 | PETR_ITS ---
PROCEDURE INFORMATION: Exam: PET/CT Skull Base to Mid-thigh Exam date and time: 02/18/2025 1:19 PM Age: 64 years old Clinical indication: Abnormal findings; Lung nodule; Prior surgery; Surgery date: 6+ months; Surgery type: Endobronchial valve; Additional info: New lung nodule LABS AND CLINICAL REPORTS: Glucose: 115 mg/dl Treatment strategy for malignancy (PET staging): Initial Staging (PI) TECHNIQUE: Imaging protocol: Following at least four-hour fasting and following the injection of radiopharmaceutical, low dose CT images were obtained. Then, PET images were obtained. Attenuation corrected images were constructed using the CT scan. Fused images of PET and CT were reviewed. The standardized uptake values (SUV) reported below are maximum values within a region of interest, expressed in gm/ml. Exam includes orbital meatal line to mid-thigh. SUV normalization method: BodyWeight Radiopharmaceutical: 10.84 mCi F-18 FDG (Fluorodeoxyglucose), IV. Time of imaging post radiopharmaceutical administration: 45 minutes Injection site: left hand COMPARISON: CT chest wo con [id number] 02/04/2025, CT chest lung cancer screening 01/22/2024 09/30/2022 FINDINGS: Brain: On the nondedicated limited brain images there is no abnormal distribution of the radiotracer in the guzman and white matter. Pharynx: Normal distribution of the radiotracer in nasopharyngeal, and oropharyngeal structures. Larynx: Normal distribution of the radiotracer in laryngeal structures. Lungs, pleura and trachea: No abnormal uptake. 6 mm left upper lobe nodule adjacent to the interlobar fissure new since 2023 (series 202, image 104) is not FDG avid. Small spiculated opacity in the left upper lobe (series 202, image 82) stable since 2022 is compatible with benign scar. There is stable severe panlobular emphysema in the upper lobes. There are stable small subsegmental atelectasis in the lower lobes. No pleural effusion. Heart: Normal physiologic uptake. There is no cardiomegaly. Coronary artery calcification is present. There is no pericardial effusion. Mediastinal space: No abnormal uptake. Liver: Normal size without abnormal radiotracer uptake. Severe fatty liver. Gallbladder and biliary ducts: No abnormal uptake. Pancreas: Normal distribution of radiotracer. Spleen: Normal size without abnormal radiotracer uptake. Adrenal glands: No abnormal uptake. No nodules. Kidneys and ureters: Normal physiologic uptake. No hydronephrosis. Stomach and bowel: About 6 cm long segment of small bowel in the left abdomen with size increased uptake is likely representing benign physiologic finding. There is severe diverticulosis of the sigmoid colon with no signs of acute diverticulitis. Vasculature: No abnormal uptake. Lymph nodes: No abnormal uptake. No lymphadenopathy in the head, neck, chest, abdomen, pelvis, and extremities. There is sequela of exposure to granulomatous disease with calcified granulomas in normal sized bilateral hilar lymph nodes. Skeleton: No abnormal uptake in the visualized axial and appendicular skeleton. Soft tissues: No abnormal uptake in the visualized head, neck, chest, abdomen, pelvis, and extremities. METRICS: Mediastinal blood pool maximal uptake is 2.6 SUV. Liver maximal uptake is 3.2 SUV. PET/PET skull to thigh INIT [id number] IMPRESSION: No abnormal radiotracer uptake in the lungs. Specifically, 6 mm lung nodule in the left upper lobe new since 2023 is not FDG avid. Segment of increased uptake in the small bowel in the left abdomen is likely benign.
== END 2025-02-18 11:56 | disposition home or self-care (01) ==
PROVIDERS: PCP Family Medicine; Visit Provider Internal Medicine
DX: R91.1 Solitary pulmonary nodule (principal)
CPT/HCPCS: 78815; A9552

== ENCOUNTER 2025-03-10 08:07 | Outpatient (CLI) | payer MEDICARE, SELFPAY ==
--- NOTE | 2025-03-10 08:30 | CT_ITS ---
WS: [id number] CT CHEST TECHNIQUE: Noncontrast CT of the chest with coronal and sagittal reformatted images. CLINICAL INFORMATION: Pre procedure COMPARISON: PET/CT 02/18/2025 DLP: [address] scans at [facility] use at least one of these dose optimization techniques: automated exposure control; mA and/or kV adjustment per patient size (includes targeted exams where dose is matched to clinical indication); or iterative reconstruction. FINDINGS: Advanced chronic emphysematous changes. Stable 7 mm nodule in the LEFT upper lobe inferior segment laterally. Scattered areas of pleural-parenchymal scarring. Subsegmental atelectasis RIGHT lower lobe. Adrenal glands are normal. Fatty liver. Mild thoracic curve. Aortic calcification. No mediastinal or hilar lymphadenopathy. Coronary calcification. CT/CT chest ION (PULM ONLY) [id number] IMPRESSION: Images obtained for intraoperative bronchoscopy navigation purposes
== END 2025-03-10 08:08 | disposition home or self-care (01) ==
LOC: RAD 08:08
PROVIDERS: PCP Family Medicine; Visit Provider Internal Medicine
DX: R91.1 Solitary pulmonary nodule (principal)
CPT/HCPCS: 71250

== ENCOUNTER 2025-03-18 07:38 | Outpatient (CLI) | payer MEDICARE, SELFPAY ==
--- NOTE | 2025-03-18 08:00 | NM_ITS ---
WS: [id number] EXAMINATION: NM lung Q Dif Puf [id number] REASON FOR EXAM: Percentage of each lobe perfusion for BLVR assessment. COMPARISON: None available. Radiopharmaceutical: 5.2 mCi of Tc-99m MAA administered intravenously Technique: Anterior, posterior, right anterior and posterior oblique, left anterior and posterior oblique planar perfusion images were obtained. In addition, SPECT lung perfusion images were obtained. The differential lung perfusion and lung volume were analyzed and calculated via Q Lung Jump or Fall computer software. FINDINGS: The perfusion images demonstrate a heterogeneous distribution of radiotracer in both lungs. There is relatively decreased radiotracer activity in the bilateral upper zones. Decreased radioactivity is noted in the posterior mid zone, bilateral but slightly greater in the mid RIGHT lung. Greatest amount of perfusion is in the overlapping anterior upper and mid zones. Similar findings continue into the lower lung parra bilaterally. Highest uptake of the nuclide in the mid anterior zone, greatest in the RIGHT lung. The calculated quantitative differential perfusion and total counts. LEFT LUNG: Upper zone: Differential Perfusion = 6.4%. 31.48 Kct Middle zone: Differential Perfusion = 24.3%. 119 Kct Lower zone: Differential Perfusion = 14.3%. 70 Kct Total lung: Differential Perfusion = 44.9%. 221Kct RIGHT LUNG: Upper zone: Differential Perfusion = 7.8%. 38.5 Kct Middle zone: Differential Perfusion = 32.7%. 161 Kct Lower zone: Differential Perfusion = 14.6%. 71Kct Total lung: Differential Perfusion = 55.1%. 271 Kct NM/NM lung Q Dif Puf [id number] IMPRESSION: Quantitative lung perfusion as above. Greater total perfusion to the RIGHT lung at 55.1% as compared to the LEFT lung 44.9%.
--- NOTE | 2025-03-18 10:48 | USCV_ITS ---
Murray Cifuentes Age: 64 Gender: M : 1960 Exam Date: 03/18/2025 12:26 Ordering Phys: Carla Aguiar MD Technologist: Ion Golden Exam Location: [facility] [place] Indication: sob BP: 124 / 80 HR: 79 Rhythm: Sinus Technical Quality: Adequate MEASUREMENTS (Male / Female) Normal Values 2D ECHO LVOT Diameter 2.0 cm LV Ejection Fraction MOD 4C 42.1 % LV Ejection Fraction MOD 2C 43.6 % LV Ejection Fraction 2C AL 43.5 % LA Diameter 3.3 cm RA Systolic Volume 4C AL 42.0 ml RA Systolic Volume 4C MOD 41.4 ml LA Sys Volume AL 43.1 cm cubed LA Sys Volume Index AL 19.9 cm cubed/m squared Aorta at Sinotubular Diameter 2.9 cm IVC Diameter 1.4 cm M-MODE LA Ao Ratio MM 1.0 AV Cusp Separation MM 2.2 cm DOPPLER AV Peak Velocity 95.0 cm/s LVOT Peak Velocity 97.0 cm/s AV Area Cont Eq vti 2.5 cm squared AV Area Cont Eq pk 3.2 cm squared MV Peak Velocity 63.0 cm/s MV Area PHT 5.0 cm squared Mitral E to A Ratio 0.7 TR Peak Velocity 126.0 cm/s TR Peak Gradient 6.4 mmHg TR Mean Velocity 96.0 cm/s TR Mean Gradient 3.9 mmHg TR Velocity Time Integral 40.6 cm PV Peak Velocity 89.0 cm/s RV Ejection Time 0.2 s FINDINGS Left Ventricle Diffuse hypokinesis of the left ventricular ejection fraction of 40 to 45%.Grade I/IV diastolic dysfunction (abnormal relaxation filling pattern), normal to mildly elevated filling pressures. Right Ventricle The right ventricle is normal in size and function. Right Atrium The right atrium is normal in size. Left Atrium The left atrium is normal in size. Mitral Valve No gross abnormalities noted Aortic Valve Thickened aortic valve. Tricuspid Valve No gross abnormalities noted Pulmonic Valve Pulmonic valve not well visualized. Pericardium Normal pericardium without effusion. Aorta Normal ascending aorta dimension. IVC The inferior vena cava appears normal. CONCLUSIONS Diffuse hypokinesis of the left ventricular ejection fraction of 40 to 45%.Grade I/IV diastolic dysfunction (abnormal relaxation filling pattern), normal to mildly elevated filling pressures. Thickened aortic valve. There is no pericardial effusion. There are no intracardiac masses. Compared to the study from 02/11/2018, there is a significant drop in the LV ejection fraction from 65% to 40-45% Dr Gregory Stewart MD [facility] (Electronically Signed) Final Date: 18 March 2025 13:44 S
== END 2025-03-18 07:39 | disposition home or self-care (01) ==
PROVIDERS: PCP Family Medicine; Visit Provider Internal Medicine
DX: J43.9 Emphysema, unspecified (principal); R06.09 Other forms of dyspnea; G47.33 Obstructive sleep apnea (adult) (pediatric); R91.8 Other nonspecific abnormal finding of lung field; I51.89 Other ill-defined heart diseases; I35.8 Other nonrheumatic aortic valve disorders
CPT/HCPCS: 78597; 78598; 93306

== ENCOUNTER → 2025-04-07 14:18 | Outpatient (BNVA) | payer MEDICARE, SELFPAY | PROVIDERS: PCP Family Medicine; Referring Provider Internal Medicine; Visit Provider Internal Medicine | DX: R07.9 Chest pain, unspecified (principal); R06.09 Other forms of dyspnea; E11.9 Type 2 diabetes mellitus without complications; Z79.4 Long term (current) use of insulin; Z79.85 Long-term (current) use of injectable non-insulin antidiabetic drugs; Z87.891 Personal history of nicotine dependence; I51.9 Heart disease, unspecified; R58 Hemorrhage, not elsewhere classified | CPT/HCPCS: 36415; 80048; 85025; 85610; 93005; 99204 ==

== ENCOUNTER → 2025-04-11 14:26 | Outpatient (BNVA) | payer MEDICARE, SELFPAY | PROVIDERS: PCP Family Medicine; Visit Provider Internal Medicine | DX: J96.11 Chronic respiratory failure with hypoxia (principal); G47.33 Obstructive sleep apnea (adult) (pediatric); J44.89 Other specified chronic obstructive pulmonary disease; J47.9 Bronchiectasis, uncomplicated; I51.9 Heart disease, unspecified; Z99.81 Dependence on supplemental oxygen; Z87.891 Personal history of nicotine dependence; J44.9 Chronic obstructive pulmonary disease, unspecified; J43.1 Panlobular emphysema; T78.40XA Allergy, unspecified, initial encounter; X58.XXXA Exposure to other specified factors, initial encounter | CPT/HCPCS: 36415; 82103; 85025; 86003; 99215; Q3014 ==

== ENCOUNTER 2025-04-25 05:57 | Outpatient (CLI) | payer MEDICARE, SELFPAY ==
[2025-04-25] VITALS (62 sets, daily range): BP systolic 87–155; BP diastolic 63–84; PULSE 73–103; RESP 14–34; TEMP 36.4–36.9; O2SAT 91–97; BMI 28.1
--- NOTE | 2025-04-25 06:00 | XACV_ITS ---
Ht: 180 cm Wt: 92 kg BSA: 2.16 m2 Gender: Male : 1960 Any Known Allergies: Other Exam Priority: Routine Indication(s): - Decreased LV systolic function Procedure(s): Procedure Description: Diagnostic procedure Procedure Description: PCI procedure Procedure Description: Left Heart Catheterization Procedure Description: Left ventriculography Procedure Description: Drug Eluting Coronary Stent Procedure Description: PTCA Procedure Description: Miscellaneous Procedure Description: ACT Procedure Description: Coronary Angiography Diagnostic Cath Status: Elective Diagnostic Findings * Left Main has no disease. * Mid Left Anterior Descending: significant 80% stenosis, TREVOR: 3 flow. * Proximal Right Coronary Artery to Mid Right Coronary Artery: luminal irregularities 20% stenosis, TREVOR: 3 flow. * Proximal Circumflex to Mid Circumflex: luminal irregularities 20% stenosis, TREVOR: 3 flow. * Coronary angiography shows right dominance. PCI Status: Elective PCI Indication: Other Interventional Findings * Mid Left Anterior Descendin% stenosis treated with a AB TREK 2.50X15 RX BALLOON, MDRona Kumari THOMAS 3.0X22 BRANDEE, and MDT LORENZO EUPHORA RX [id number] BALLOON. 0% residual stenosis, TREVOR: 3 flow. Conclusions 1. There is significant coronary artery disease with three vessel disease. 2. The mid posterior, apical posterior, anterolateral, mid inferior voss are hypokinetic. 3. The apex in the CANUT view is hypokinetic. 4. All other visualized voss normal. 5. Mild left ventricular systolic dysfunction. Ejection fraction of 45%. 6. Mid Left Anterior Descending was treated with a Balloon, Drug Eluting Stent, and Balloon. Recommendations * 1-Return to inpatient for close monitoring and routine cath care 2-Risk factor modification for secondary prevention 3-Statin and aspirin 81 mg life-long, if tolerated 4-Patient was pre-loaded with 600 mg of Plavix, continue Plavix 75mg p.o. daily for at least one year. We will assess at the end of one year again to continue if further or not 5-Continue optimal medical management 6-Follow up with Dr. Grande in four weeks and your primary care in 10 days. Diagnostic RX Recommendation: PCI w/o planned CABG Ventriculography Ejection Fraction: 45.0 % Pressures Phase:Rest AO : 95 / 64 ( 78 ) @ 9:28:00 AM 123 / 70 ( 93 ) @ 10:14:00 AM 119 / 69 ( 91 ) @ 10:14:00 AM LV : 119 / -5 / 18 @ 10:13:00 AM 119 / 4 / 26 @ 10:14:00 AM 119 / 0 / 21 @ 10:14:00 AM Valves Phase:DefaultPhase AV : 0.0 @ 9:24:43 AM AV Mean Gradient: 0.0 @ 9:24:43 AM Clinical Evaluation EBL: 5mL-10mL Procedural Details Procedure Consent Obtained. Pre-Procedure Time Out. Identified patient by full name and date of as verbalized by the patient/guarantor. Does the consent match the physician's order: Yes. Accurate & Complete Informed Consent: Yes. Inpatient/Outpatient History & Physical on Chart: Yes. If H&P is completed, is and addenduem needed: No; If yes, is the addendum complete: N/A. Visualize and Verify Site with Patient/Guarantor: N/A. Relevant Radiology Images available: N/A. The risks, benefits, and alternatives of sedation and/or procedure were discussed by physician. The patient agrees to continue. Procedure started. [facility] Clinical Fraility Score: 4: Vulnerable. 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 Chest Pain Symptom Assessment: Atypical Angina. Cardiovascular Instability: No. Correct patient, site and procedure confirmed by cath team. Current diagnosis: LV Dysfunction. PERRLA. Strong, equal hand gelatin powder mixer bilaterally. Lungs clear x 5 lobes. IV Site on Arrival: 20 gauge in the left anticubital. IV Fluids: 0.9% NaCl at KVO. 0 mL infused prior to laboratory operations coordinator. Pre Procedural Pulses: bilateral dorsalis pedis was 3+. Pre Procedural Pulses: bilateral posterior tibial was 1+. Pre Procedural Pulses: bilateral radial was 3+. Oxygen started at 3liters/min via nasal canula. right radial was prepped with chloroprep then draped in the usual sterile fashion. right groin was prepped with chloroprep then draped in the usual sterile fashion. Physician notified. Patient was pretreated for contrast allergy with prednisone and benadryl prior to arrival per MD. Baseline sample Acquired. HR: 98 BPM. Physician arrived. Family updated by MD prior to the start of the procedure. Physician scrubbed in. Correct Patient: Yes; Correct Procedure: Yes; Correct Site: Yes; Correct Patient Position: Yes; Correct Supplies: Yes; Dried Flammable Prep: Yes; Blood Products Available: N/A;. IV infiltrated. IV fluids discontinued. IV removed. A 20 gauge IV was started in the left wrist using aseptic technique by Lucy DICKERSON. Baseline sample Acquired. HR: 82 BPM. Fluids resumed in new IV. Lidocaine 1% infiltrated to the right radial. Immediate Pre-Procedure Time Out. Arterial access obtained. A 5 martiniquais Tommy catheter in over wire. Multiple views taken of left coronary artery. Catheter redirected to the RCA. Multiple views taken of right coronary artery. Catheter removed over the wire. 6 martiniquais XB 3.5 guide catheter was inserted over the wire. ACT drawn. Results 271 seconds. Therapeutic limits - pre-heparin administration 90-150 seconds and monitoring heparin during a vascular procedure >250 seconds. Guide seated in the LCS. Runthrough guidewire was advanced through the guide catheter to lesion in the mid LAD. Guidewire advanced across lesion. Inflation number : 1 A AB TREK 2.50X15 RX BALLOON was prepped and advanced across the Mid LAD , then inflated to 12 URBAN for 0:14 seconds. Inflation number: 2 The AB TREK 2.50X15 RX BALLOON was reinflated across the Mid LAD, to 12 URBAN for 0:11 seconds. Inflation number: 3 The AB TREK 2.50X15 RX BALLOON was reinflated across the Mid LAD, to 12 URBAN for 0:12 seconds. Results checked. Inflation number: 4 The AB TREK 2.50X15 RX BALLOON was reinflated across the Mid LAD, to 12 URBAN for 0:11 seconds. Balloon out. Inflation Number : 5 A MDT R THOMAS 3.0X22 BRANDEE -Lot Number# [id number] EXP 07/21/2025 was prepped and advanced across the Mid LAD. The stent was deployed at 12 URBAN for 0:15 seconds. Results checked. Stent balloon out over wire. Inflation number : 6 A MDT NC EUPHORA RX [id number] BALLOON was prepped and advanced across the Mid LAD , then inflated to 10 URBAN for 0:17 seconds. Inflation number: 7 The MDT NC EUPHORA RX [id number] BALLOON was reinflated across the Mid LAD, to 12 URBAN for 0:16 seconds. Balloon out. Results checked. Wire out. Results checked. ACT drawn. Results 322 seconds. Therapeutic limits - pre-heparin administration 90-150 seconds and monitoring heparin during a vascular procedure >250 seconds. Guide catheter out. Physician review of films. A 5 martiniquais Angled Pig catheter in over wire. EDP Sample taken: LV 119/-6,18; HR: 83 BPM; SpO2: 97%. LV gram performed in CANTU @ 10 mL/second for a total of 30 mL. Patient EF: Abnormal. EDP Sample taken: LV 119/4,26; HR: 85 BPM; SpO2: 98%. Pullback taken: LV 119/0,21; AO 123/70(93); Mean: 0mmHg, Peak to Peak: 0mmHg, SEP: 7sec/min; HR: 86 BPM; SpO2: 98%. Catheter removed over the exchange wire. Physicain review of films. Physician scrubbed out. A TR Band was successful obtaining hemostatsis at the Right Radial artery insertion site. TR band placed. Hemostasis obtained. Post Procedure: Pulses reassessed and unchanged. PERRLA. Strong, equal hand gelatin powder mixer bilaterally. No VTE prophylaxis required. Medication's Wasted: Lidocaine 1% = 18 ml, Nitro = 49.8 mg , Heparin = 2000 units. Total IV fluids: 85 mL. Fluoro: 12:01. Contrast type used: Omnipaque 300 mgI/mL, 500 mL bottle. [id number]. Post-op diagnosis: Severe Mid LAD stenosis; S/P one BRANDEE. Complications: None. Estimated blood loss: 5mL-10mL. Responsiveness - Normal response to verbal stimuli; alert and oriented, PERRLA. Airway - Unaffected, no intervention required; spontaneous ventilation. Circulation: W/N/L, pulses unchanged. Nausea/Vomiting: No. Procedure completed. Patient transferred by bed to CPRU. Current Diagnosis : Chest Pain. Vital chart was stopped. Access Site Site: Right Radial artery Sheath Size: 6 Fr Hemostasis Method: TR Band Hemostasis Success: Successful Procedure Medications Start: 8:06 AM Stop: 8:06 AM Medication: Versed Amount: 1 mg Route: I.V. Start: 8:06 AM Stop: 8:06 AM Medication: Fentanyl Amount: 50 mcg Route: I.V. Start: 8:10 AM Stop: 8:10 AM Medication: Versed Amount: 1 mg Route: I.V. Start: 8:10 AM Stop: 8:10 AM Medication: Fentanyl Amount: 50 mcg Route: I.V. Start: 8:22 AM Stop: 8:22 AM Medication: Versed Amount: 1 mg Route: I.V. Start: 8:22 AM Stop: 8:22 AM Medication: Fentanyl Amount: 50 mcg Route: I.V. Start: 8:25 AM Stop: 8:25 AM Medication: Nitrogylcerin Amount: 200 mcg Route: I.A. Start: 8:27 AM Stop: 8:27 AM Medication: Heparin Amount: 5000 units Route: I.V. Start: 8:28 AM Stop: 8:28 AM Medication: Versed Amount: 1 mg Route: I.V. Start: 8:39 AM Stop: 8:39 AM Medication: Plavix Amount: 600 mg Route: P.O. Start: 8:39 AM Stop: 8:39 AM Medication: Heparin Amount: 4000 units Route: I.V. Start: 8:40 AM Stop: 8:40 AM Medication: Fentanyl Amount: 25 mcg Route: I.V. Start: 9:01 AM Stop: 9:01 AM Medication: Fentanyl Amount: 25 mcg Route: I.V. I, the attending physician, have reviewed and verified all procedure medications. Yes, all medications given per verbal order History/Risk Factors Hypertension: No Dyslipidemia: No Peripheral Arterial Disease (PAD): No Myocardial Infarction (WA): No Obesity: No Renal Disease: No Tobacco Use: Former Prior Interventions PCI: No CABG: No Valve Surgery: No Report Signatures Finalized by Marvel Grande MD on 04/25/2025 09:46 AM
[2025-04-25 06:30] LABS: Hematocrit 42.9 % (37-53); Hemoglobin 13.60 g/dL (11.27-16.99); Mean Corpuscular HGB Conc 31.7 g/dL (30-55); Mean Corpuscular Hemoglobin 29.3 pg (27-33); Mean Corpuscular Volume 92.5 fl (82-101); Nucleated Red Blood Cells % 0 %; Platelet Count 243 10^3/cmm (157-399); Red Blood Count 4.64 10^6/uL (3.85-5.65); White Blood Count 7.57 10^3/uL (3.29-11.43)
[2025-04-25 06:46] LABS: Anion Gap 15.0 (5-19); Blood Urea Nitrogen 12 mg/dL (8-23); Calcium 9.7 mg/dL (8.5-10.5); Carbon Dioxide 26 mmol/L (22-29); Chloride 97 mmol/L (98-107); Creatinine Clr Calc Pharmacy 86.3765; Glucose 266 mg/dL (65-115); Osmolality Calculated 287 mOsm/kg (285-295); Potassium 4.0 mmol/L (3.5-5.1); Sodium 134 mmol/L (136-145)
--- NOTE | 2025-04-25 08:07 | W.PM.OPSUD ---
Surgery/Procedure H&P Update DATE OF PROCEDURE: April 25, 2025 DATE H&P PERFORMED: 04/07/25 H&P UPDATE INFORMATION: I have reviewed H&P completed within last 30 days, I have examined patient prior to procedure and No changes to prior documentation CHANGES TO PREVIOUS DOCUMENTATION: New onset of heart failure, moderate LV dysfunction PREOP DIAGNOSIS: New onset of heart failure, moderate new LV dysfunction PLANNED PROCEDURE: Operation Date: 04/25/25 07:00 Proposed Procedures p Cardiac Catheterization - C w/wo LV & Coros(Left) - Marvel Grande MD PATIENT REASSESSED PRIOR TO SEDATION, WITH NO CHANGE NOTED: Yes PHYSICAL EXAM: alert, oriented x 3, clear to auscultation bilaterally, regular rate & rhythm and operative site marked AIRWAY EVAL/ANESTHESIA PLAN: ASA II, Risks, benefits & alternatives of sedation and/or procedure discussed and Patient agrees to continue as planned ADDITIONAL INFORMATION: All risk-benefit and alternative for the procedure has been explained to the patient. Patient understand 2% risk of stroke major bleed, patient restand 5% risk of minor bleeding oozing infection hematoma contrast-induced nephropathy urgent emergent vascular or bypass surgery. Patient agrees to it and would like to proceed with it.
--- NOTE | 2025-04-25 09:30 | PC.NURSE ---
Patient arrived to CPRU room 2 post cath procedure. Patient has [address] in [address]. Radial pulse palpable, no signs of bleeding or hematoma. Pt alert and oriented. Breathing even and non-labored on 2 L NC . Placed on bedside registered nurse cardiac. Call light in reach, family at bedside.
--- NOTE | 2025-04-25 14:52 | PC.NURSE ---
report taken from JAYLA Manriquez in CPRU. Patient coming to 111-1 with [address], bruise formed in laboratory miller.
--- NOTE | 2025-04-25 16:03 | PC.NURSE ---
tr band removed at 1557. No new hematoma formation. 2x2 and tegaderm applied to puncture site.
--- NOTE | 2025-04-25 16:08 | PC.NURSE ---
see vitals in vitals portion of chart
--- NOTE | 2025-04-25 18:11 | PC.NURSE ---
see vitals in vitals portion of chart
--- NOTE | 2025-04-25 19:08 | PC.NURSE ---
patient asked if he could resume his home nebulizer treatments. This nurse contacted Dr Grande via phone and asked if that was ok and Dr Grande gave written orders to resume home breathing treatments.
[2025-04-26 03:46] VITALS: BP 101/64; PULSE 77; PULSE 84; RESP 17; RESP 22; TEMP 36.3; O2SAT 90; O2SAT 96
[2025-04-26 04:11] LABS: Hematocrit 36.8 % (37-53); Hemoglobin 11.60 g/dL (11.27-16.99); Mean Corpuscular HGB Conc 31.5 g/dL (30-55); Mean Corpuscular Hemoglobin 29.1 pg (27-33); Mean Corpuscular Volume 92.2 fl (82-101); Nucleated Red Blood Cells % 0 %; Platelet Count 217 10^3/cmm (157-399); Red Blood Count 3.99 10^6/uL (3.85-5.65); White Blood Count 10.21 10^3/uL (3.29-11.43)
[2025-04-26 04:37] LABS: Anion Gap 16.1 (5-19); Blood Urea Nitrogen 14 mg/dL (8-23); Calcium 9.0 mg/dL (8.5-10.5); Carbon Dioxide 26 mmol/L (22-29); Chloride 102 mmol/L (98-107); Creatinine Clr Calc Pharmacy 107.9707; Glucose 151 mg/dL (65-115); Osmolality Calculated 293 mOsm/kg (285-295); Potassium 4.1 mmol/L (3.5-5.1); Sodium 140 mmol/L (136-145)
[2025-04-26 07:00] VITALS: BP 122/74; PULSE 78; PULSE 99; RESP 31; TEMP 36.6; O2SAT 94
[2025-04-26 08:00] VITALS: PULSE 83; RESP 16; O2SAT 96
--- NOTE | 2025-04-26 09:57 | P.DS_ITS ---
<Statement entered by Marvel Grande MD - 04/27/25 22:02> Patient was evaluated and cared for in conjunction with an advanced practice practitioner. I have not personally examined the patient but reviewed the chart and all pertinent data including imaging, telemetry, and laboratory results. I discussed the patient in detail with the advanced practice practitioner. Please see their note for complete H&P testing result and agreed upon plan of care for the patient. Discharge Providers Date of Admission: 04/25/2025 Date of Discharge: April 26, 2025 Attending Provider at Admission: Marvel Grande MD Attending Provider at Discharge: Marvel Grande MD Primary Care Provider: Atilio Caceres MD Reason for Visit Reason for Visit: na Brief History: 64-year-old man with past medical histor y of significant COPD, obstructive sleep apnea, history of smoking who has been referred for evaluation of LV dysfunction. Patient has on and off chest pain symptoms. Also has significant dyspnea on exertion. On oxygen. Echo showed EF of 40 to 45%. EKG in the office shows sinus rhythm with nonspecific ST-T wave changes. He has family history of CAD Hospital Course Hospital Course He was brought for coronary angiogram yesterday which revealed significant mid LAD stenosis, proximal RCA 20% stenosis, proximal circumflex 20% stenosis. The mid LAD was treated with balloon angioplasty and BRANDEE x 1. LVEF 45% by LV gram. He has done well overnight, no chest pain or shortness of breath. He appears euvolemic today. Creatinine 0.8, no complications with right radial cath site. Will discharge home today on aspirin, Plavix, atorvastatin 40 mg daily in addition to his other home medications. Will have him follow-up in the cardiology clinic in 2 weeks, can discuss GDMT at that time as well. Physical Exam Const: COMMON NORMALS: no acute distress and patient oriented x3 GENERAL APPEARANCE: cooperative ORIENTATION/CONSCIOUSNESS: Yes awake, Yes oriented to person, Yes oriented to place and Yes oriented to time Chest: COMMONS NORMALS: normal inspection of the chest and normal palpation of entire chest wall CHEST: Yes Symmetrical chest wall rise Resp: COMMON NORMALS: normal respiratory effort, No retractions, No use of accessory muscles and clear to auscultation bilaterally AUSCULTATION: clear to auscultation bilaterally Cardio: COMMON NORMALS: regular rate, regular rhythm, S1 normal heart sound present, S2 normal heart sound present, No gallops present (Cardio), No clicks present (Cardio), No murmurs present (Cardio) and No rub (Cardio) RATE: regular rate RHYTHM: regular rhythm HEART SOUNDS: S1 normal heart sound present and S2 normal heart sound present PERIPHERAL PULSES: radial pulses present positive right 2+ and femoral pulses present positive right 2+ Neuro: COMMON NORMALS: patient oriented x3 and moves all extremities SENSORIUM/ORIENTATION: Yes oriented to person, Yes oriented to place and Yes oriented to time Skin: WOUNDS: Yes surgical site (no hematoma palpable) Details: no odor Discharge Data Studies Completed and Pending Completed Studies During Hospitalization Category Date Time Status ANESTHESIOLOGIST PHYSICIAN request for service Routine Exams 04/25/25 06:00 Completed Laboratory Results WBC 10.21 10^3/uL (3.29-11.43) 04/26/25 03:41 RBC 3.99 10^6/uL (3.85-5.65) 04/26/25 03:41 Hgb 11.60 g/dL (11.27-16.99) 04/26/25 03:41 Hct 36.8 % (37-53) L 04/26/25 03:41 MCV 92.2 fl (82-101) 04/26/25 03:41 MCH 29.1 pg (27-33) 04/26/25 03:41 MCHC 31.5 g/dL (30-55) 04/26/25 03:41 RDW 12.7 % (12.1-15.1) 04/26/25 03:41 Plt Count 217 10^3/cmm (157-399) 04/26/25 03:41 MPV 9.0 fL (7.4-10.4) 04/26/25 03:41 Neut % (Auto) 73.8 % 04/26/25 03:41 Lymph % (Auto) 18.0 % 04/26/25 03:41 Baca % (Auto) 7.3 % 04/26/25 03:41 Eos % (Auto) 0.2 % 04/26/25 03:41 Baso % (Auto) 0.2 % 04/26/25 03:41 Neut # (Auto) 7.53 10^3/uL (1.8-7.7) 04/26/25 03:41 Lymph # (Auto) 1.8 10^3/uL (0.8-4.8) 04/26/25 03:41 Baca # (Auto) 0.8 10^3/uL (0.2-0.9) 04/26/25 03:41 Eos # (Auto) 0.0 10^3/uL (0.0-0.8) 04/26/25 03:41 Baso # (Auto) 0.0 10^3/uL (0.0-0.1) 04/26/25 03:41 Nucleated RBC % (auto) 0 % 04/26/25 03:41 Nucleated RBCs # 0.0 /100WBC 04/26/25 03:41 Sodium 140 mmol/L (136-145) 04/26/25 03:41 Potassium 4.1 mmol/L (3.5-5.1) 04/26/25 03:41 Chloride 102 mmol/L (98-107) 04/26/25 03:41 Carbon Dioxide 26 mmol/L (22-29) 04/26/25 03:41 Anion Gap 16.1 (5-19) 04/26/25 03:41 BUN 14 mg/dL (8-23) 04/26/25 03:41 Creatinine 0.8 mg/dL (0.7-1.2) 04/26/25 03:41 GFR Calculation 97.3 mL/min (90-130) 04/26/25 03:41 Glucose 151 mg/dL (65-115) H 04/26/25 03:41 POC Glucose 209 mg/dL (70-110) H 04/26/25 08:34 Calculated Osmolality 293 mOsm/kg (285-295) 04/26/25 03:41 Calcium 9.0 mg/dL (8.5-10.5) 04/26/25 03:41 Vitals Last Vital Signs Temp 97.8 F 04/26/25 07:00 Pulse 83 04/26/25 08:00 Resp 16 04/26/25 08:00 BP 122/74 04/26/25 07:00 Pulse Ox 96 04/26/25 08:00 O2 Del Method Nasal Cannula 04/26/25 08:00 O2 Flow Rate 2 04/26/25 08:00 Discharge Plan Discharge Patient Disposition: Home Prescriptions: New aspirin 81 mg Tablet,Delayed Release (Dr/Ec) 81 mg PO DAILY Qty: 90 0RF clopidogrel 75 mg Tablet 75 mg PO DAILY Qty: 90 3RF atorvastatin 40 mg Tablet 40 mg PO BEDTIME Qty: 90 1RF Continued insulin glargine [Lantus Solostar U-100 Insulin] 100 unit/mL (3 mL) insulin pen 24 unit SUBCUT QAM azelastine 137 mcg (0.1 %) spray,non-aerosol 1 spray intranasal BID PRN (Reason: Shortness Of Breath Or Wheezing) Rx Instructions: administer into each nostril formoterol fumarate 20 mcg/2 mL solution for nebulization 2 ml inhalation Q12H Qty: 120 6RF prednisone 50 mg tablet 50 mg PO DIRECTED Qty: 3 0RF Rx Instructions: Take one tab 13 hrs, 7 hrs and 1 hour prior to procedure diphenhydramine HCl [Benadryl Allergy] 25 mg tablet 25 mg PO ONCE Qty: 2 0RF Rx Instructions: Take 2 tabs 1 hour prior to procedure. (DME) blood-glucose meter Kit See Rx Instructions .Route Qty: 1 0RF Rx Instructions: As directed (DME) Acapella See Rx Instructions .Route .MEDSUPPLY Qty: 1 0RF Rx Instructions: As directed cyclobenzaprine 10 mg tablet 10 mg PO TID PRN (Reason: muscle spasm) Qty: 30 1RF pantoprazole 40 mg tablet,delayed release (DR/EC) See Rx Instructions .ROUTE .COMPLEX Qty: 90 1RF Dose Instruction: TAKE 1 TABLET BY MOUTH EVERY DAY Rx Instructions: TAKE 1 TABLET BY MOUTH EVERY DAY prednisone 10 mg tablet See Rx Instructions .ROUTE .COMPLEX Qty: 30 1RF Dose Instruction: TAKE 1-2 TABLETS BY MOUTH EVERY DAY NEEDED FOR FLARES Rx Instructions: TAKE 1-2 TABLETS BY MOUTH EVERY DAY NEEDED FOR FLARES cyanocobalamin (vitamin B-12) [Vitamin B-12] 500 mcg tablet 500 mcg PO DAILY Qty: 30 6RF (DME) lancets [TRUEplus Lancets] 33 gauge misc See Rx Instructions .ROUTE .COMPLEX Qty: 100 6RF Dose Instruction: USE DIRECTED Rx Instructions: USE DIRECTED (DME) True Metrix Glucose Test Strip Strip See Rx Instructions .ROUTE .COMPLEX Qty: 100 12RF Dose Instruction: USE TO TEST ONCE DAILY Rx Instructions: USE TO TEST ONCE DAILY (DME) Trilogy ventilator See Rx Instructions .Route .MEDSUPPLY Qty: 1 0RF Rx Instructions: As directed (DME) OneTouch Ultra Test Strip See Rx Instructions .ROUTE .COMPLEX Qty: 100 12RF Dose Instruction: USE TO TEST ONCE DAILY Rx Instructions: USE TO TEST ONCE DAILY tiotropium bromide [Spiriva with HandiHaler] 18 mcg capsule, w/inhalation device 1 cap inhalation DAILY Qty: 60 6RF Rx Instructions: INHALE THE CONTENTS OF 1 CAPSULE DAILY, TWO INHALATIONS PER ONE CAPSULE DOSE (DME) RSV vaccine See Rx Instructions .ROUTE .MEDSUPPLY Qty: 1 0RF Rx Instructions: Give one dose IM per guidelines. albuterol sulfate 90 mcg/actuation HFA aerosol inhaler See Rx Instructions .ROUTE .COMPLEX Qty: 8.5 6RF Dose Instruction: INHALE 2 PUFFS EVERY 6 HOURS NEEDED FOR SHORTNESS OF BREATH OR WHEEZING Rx Instructions: INHALE 2 PUFFS EVERY 6 HOURS NEEDED FOR SHORTNESS OF BREATH OR WHEEZING (DME) pen needle, diabetic 31 gauge x 3/16 needle See Rx Instructions .ROUTE .COMPLEX Qty: 100 6RF Dose Instruction: DIRECTED FOR USE WITH LANTUS Rx Instructions: DIRECTED FOR USE WITH LANTUS Ozempic 0.25 mg or 0.5 mg (2 mg/3 mL) pen injector 0.25 mg SUBCUT Q7D Qty: 3 3RF Rx Instructions: Inject 0.25mg Q7D for 4 weeks then increase to 0.5mg Q7D hydroxychloroquine 200 mg tablet See Rx Instructions .ROUTE .COMPLEX Qty: 180 1RF Dose Instruction: TAKE 1 TABLET BY MOUTH TWICE A DAY Rx Instructions: TAKE 1 TABLET BY MOUTH TWICE A DAY ipratropium-albuterol 0.5 mg-3 mg(2.5 mg base)/3 mL solution for nebulization 3 ml inhalation QID PRN (Reason: wheezing) Qty: 320 6RF montelukast [Singulair] 10 mg tablet 10 mg PO DAILY Qty: 30 11RF budesonide [Pulmicort] 0.5 mg/2 mL suspension for nebulization 0.5 mg inhalation BID Qty: 360 3RF cholecalciferol (vitamin D3) 50 mcg (2,000 unit) capsule 50 mcg PO DAILY Rx Instructions: TAKE 1 CAPSULE BY MOUTH EVERY DAY Discharge Order = DC NOW: Discharge Order (Routine); Ordered 04/26/25 Ordered By: Shani Montes Referrals: Siena Sparks NP [Nurse Practitioner, Cardiology] - 05/23/25 3:30 pm Atilio Caceres MD [Primary Care Provider, Family Practice] - 05/03/25 11:00 am Diet: Cardiac and Diabetic Activity: Increase activity as tolerated Patient Instructions: Aspirin (By mouth), Atorvastatin (By mouth) (Lipitor, Atorvaliq), Clopidogrel (By mouth) (Plavix), Coronary Artery Disease (DC), Coronary Angioplasty (DC), Chest Pain Stoplight, Post Angiogram Home Care Instructions Activity Restrictions/Additional Instructions: No lifting with right arm for 4 days. Print Language: German Discharge Attestations Time Spent in Discharge Care*: less than 30 min Quality Metrics Clinical Quality Measures [ No reported AMI, CVA or VTE this stay] Coding Level of Care Code Acute Code for Chg Fwrm
== END 2025-04-26 11:17 | disposition home or self-care (01) ==
LOC: CCL 05:59 → CSU 15:18
PROVIDERS: PCP Family Medicine; Visit Provider Internal Medicine Cardiovascular Disease
DX: I25.118 Atherosclerotic heart disease of native coronary artery with other forms of angina pectoris (principal); Z87.891 Personal history of nicotine dependence; J44.9 Chronic obstructive pulmonary disease, unspecified; Z99.81 Dependence on supplemental oxygen; K21.9 Gastro-esophageal reflux disease without esophagitis; Z79.4 Long term (current) use of insulin; Z82.49 Family history of ischemic heart disease and other diseases of the circulatory system; E11.9 Type 2 diabetes mellitus without complications
CPT/HCPCS: 36415; 36416; 80048; 82962; 85025; 85347; 93458; 94640; 96372; 99152; 99153; C1725; C1769; C1874; C1887; C1894; C9600; J1644; J1815; J2250; J3010; J3490; J7030; J7626; J9999; Q9967

== ENCOUNTER → 2025-05-03 15:51 | Outpatient (BNVA) | payer MEDICARE, SELFPAY | PROVIDERS: PCP Family Medicine; Visit Provider Family Medicine | DX: E11.9 Type 2 diabetes mellitus without complications (principal) | CPT/HCPCS: 83036 ==

== ENCOUNTER → 2025-05-23 15:14 | Outpatient (BNVA) | payer MEDICARE, SELFPAY | PROVIDERS: PCP Family Medicine; Visit Provider Nurse Practitioner Family | DX: I11.0 Hypertensive heart disease with heart failure (principal); I50.20 Unspecified systolic (congestive) heart failure; R07.9 Chest pain, unspecified; E11.9 Type 2 diabetes mellitus without complications; Z79.4 Long term (current) use of insulin; Z79.85 Long-term (current) use of injectable non-insulin antidiabetic drugs; I25.10 Atherosclerotic heart disease of native coronary artery without angina pectoris; Z95.5 Presence of coronary angioplasty implant and graft; J44.9 Chronic obstructive pulmonary disease, unspecified; E78.5 Hyperlipidemia, unspecified; Z87.891 Personal history of nicotine dependence | CPT/HCPCS: 36415; 80053; 82550; 85025; 99214 ==

== ENCOUNTER → 2025-05-30 11:00 | Outpatient (BNVA) | payer MEDICARE, SELFPAY | PROVIDERS: PCP Family Medicine; Visit Provider Internal Medicine Rheumatology | DX: M06.041 Rheumatoid arthritis without rheumatoid factor, right hand (principal); M06.042 Rheumatoid arthritis without rheumatoid factor, left hand; Z79.899 Other long term (current) drug therapy; Z71.85 Encounter for immunization safety counseling; J43.1 Panlobular emphysema; F17.210 Nicotine dependence, cigarettes, uncomplicated | CPT/HCPCS: 99214 ==

== ENCOUNTER 2025-06-08 09:21 | Outpatient (RCR) | payer MEDICARE, SELFPAY | END 2025-06-29 23:59 | disposition home or self-care (01) | LOC: CR 09:21 | PROVIDERS: PCP Family Medicine; Referring Provider Internal Medicine; Visit Provider Internal Medicine | DX: J44.9 Chronic obstructive pulmonary disease, unspecified (principal); Z95.5 Presence of coronary angioplasty implant and graft | CPT/HCPCS: 94626 ==

== ENCOUNTER 2025-06-14 11:01 | Outpatient (CLI) | payer MEDICARE, SELFPAY | END 2025-06-14 11:02 | disposition home or self-care (01) | LOC: RT 11:03 | PROVIDERS: PCP Family Medicine; Visit Provider Internal Medicine | DX: J44.9 Chronic obstructive pulmonary disease, unspecified (principal); J98.8 Other specified respiratory disorders | CPT/HCPCS: 94060; J7613 ==